=== PATIENT | male | born 1950 | race Caucasian/White ===

== ENCOUNTER 2016-07-22 07:30 | Inpatient (IN) | payer OTHER, MEDICARE ==
[~2016-07-22] VITALS: Ht 175.3 cm; Wt 85.6 kg
[2016-07-22] VITALS (11 sets, daily range): BP systolic 146–174; BP diastolic 67–94; PULSE 60–67; TEMP 36.3–36.8; O2SAT 97–100; Ht 175.3 cm; Wt 85.6 kg
[~2016-07-22 07:30] MED LIST: AMOX500C3 PO; LISI-729 PO; SOTA80TA55 PO; WARF5TAB7 PO
[2016-07-22] MEDS ORDERED: OXYMETAZOLINE HCL 0.05% NA SPR 15 ML BTL STA (07:44)
--- NOTE | 2016-07-22 07:58 | EMERGENCY ROOM VISIT NOTE ---
History First contact with patient: 07:41 Chief Complaint: NOSE BLEED (MINOR) Stated Complaint: NOSEBLEED History of Present Illness The patient is a 66 year old male who presents to the Emergency Room via private vehicle with complaints of "nosebleed ". Patient is accompanied by his . They state that the nosebleed began without trauma on or Thursday of this week. He does take Coumadin for a mechanical aortic valve since 1999. This past month the patient has not been eating much, and has been consuming large amounts of alcohol. Patient believes he is drinking 6-8 shots/glasses of whiskey per day but the thinks it's much higher. He was at the Coumadin clinic on Thursday and his INR was found to be 3.7. They were informed yesterday of this value and told to skip his dose today. believes he has been missing his medications lately, not on purpose but he is forgetful. He is to take medications for seizures, depression and other comorbidities. Patient denies any chest pain, shortness of breath, abdominal pain, lightheadedness, dizziness, suicidal ideations, homicidal ideations. states they're trying to get a psychiatric appointment for follow-up. Review of Systems A complete 10-point Review of Systems was discussed with the patient, with pertinent positives and negatives listed in the History of Present Illness. All remaining Review of Systems questions can be considered negative unless otherwise specified. 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 Social History Smoking Status: Former Smoker Alcohol Use: occasionally Social History: Pt. consumes large amounts of alcohol daily. Whisky 6-8 shots daily. Current/Historical Medications Scheduled Amoxicillin (Amoxil), 4 CAPSULES PO 1 HOUR BEFORE PROCED Levetiracetam (Keppra), 500 MG PO BID Losartan Potassium (Cozaar), 25 MG PO DAILY Sertraline (Zoloft), 25 MG PO DAILY Sotalol Hcl (Betapace), 40 MG PO DAILY Tiotropium [place] (Spiriva Handihaler), 1 CAP PO DAILY Warfarin Sod (Jantoven), 2.5 MG PO DAILY Allergies Coded Allergies: JENNIFER Inhibitors (Verified Adverse Reaction, Mild, cough, 07/22/16) Physical Exam Vital Signs Date Time Temp Pulse Resp B/P Pulse Ox O2 Delivery O2 Flow Rate FiO2 07/22/16 10:09 62 15 132/88 98 Room Air 07/22/16 09:40 59 19 156/88 97 Room Air 07/22/16 09:29 61 15 92/67 96 Room Air 07/22/16 09:21 53 07/22/16 08:30 70 18 170/102 98 Room Air 07/22/16 07:35 36.4 68 20 161/96 98 Room Air Physical Exam VITAL SIGNS - Vital signs and nursing notes were reviewed. Patient is afebrile , he is hypertensive at 161/96, he is not tachycardic and saturating well on room air 98%. GENERAL -66-year-old male appearing his stated age who is in no acute distress. Communicates well with provider and answers questions appropriately. SKIN - Without rashes. No petechial rashes. HEAD - NC/AT. EYES - PERRL with EOMI bilaterally. Sclera anicteric. Palpebral conjunctiva pink and moist with no injection noted. EARS - No deformities of external structures noted on gross examination bilaterally. NOSE - Midline and without cyanosis. There is a steady stream of blood from the left naris. There is also blood in the posterior pharynx. Septum midline without deviation or septal hematoma noted. MOUTH/OROPHARYNX - Without perioral cyanosis. Buccal mucosa pink and moist and without leukoplakia. Tongue midline with equal elevation of palate bilaterally. No tonsillar hypertrophy, erythema, or exudates noted. Fair dentition noted. NECK - Neck with FROM. LUNGS - Chest wall symmetric without accessory muscle use, intercostals retractions, or central cyanosis. Normal vesicular breath sounds CTA B/L. No wheezes, rales, or rhonchi appreciated. CARDIAC - RRR with S1/S2. No murmur, rubs, or gallops appreciated. EXTREMITIES - No clubbing or peripheral cyanosis. No pretibial edema present. +5 /5 strength noted in UE/LE bilaterally. NEUROLOGIC - Cranial nerves II through XII grossly intact. Sensory intact to light touch throughout. PSYCH - A&Ox3 and cooperates fully with examiner. Pt is very pleasant and interacts well with examiner. Medical Decision & Procedures Laboratory Results 07/22/16 08:15 Red Blood Count 5.21, Mean Corpuscular Volume 84.6, Mean Corpuscular Hemoglobin 29.8, Mean Corpuscular Hemoglobin Concent 35.1, Mean Platelet Volume 10.3, Neutrophils (%) (Auto) 73.7, Lymphocytes (%) (Auto) 15.8, Monocytes (%) (Auto) 5.3, Eosinophils (%) (Auto) 3.8, Basophils (%) (Auto) 0.7, Neutrophils # (Auto) 5.46, Lymphocytes # (Auto) 1.17, Monocytes # (Auto) 0.39, Eosinophils # (Auto) 0.28, Basophils # (Auto) 0.05 07/22/16 08:15 Test 07/22/16 08:15 07/22/16 09:44 White Blood Count 7.40 K/uL (4.8-10.8) Red Blood Count 5.21 M/uL (4.7-6.1) Hemoglobin 15.5 g/dL (14.0-18.0) Hematocrit 44.1 % (42-52) Mean Corpuscular Volume 84.6 fL (80-100) Mean Corpuscular Hemoglobin 29.8 pg (25-34) Mean Corpuscular Hemoglobin Concent 35.1 g/dl (32-36) Platelet Count 208 K/uL (130-400) Mean Platelet Volume 10.3 fL (7.4-10.4) Neutrophils (%) (Auto) 73.7 % Lymphocytes (%) (Auto) 15.8 % Monocytes (%) (Auto) 5.3 % Eosinophils (%) (Auto) 3.8 % Basophils (%) (Auto) 0.7 % Neutrophils # (Auto) 5.46 K/uL (1.4-6.5) Lymphocytes # (Auto) 1.17 K/uL (1.2-3.4) Monocytes # (Auto) 0.39 K/uL (0.11-0.59) Eosinophils # (Auto) 0.28 K/uL (0-0.5) Basophils # (Auto) 0.05 K/uL (0-0.2) RDW Standard Deviation 40.8 fL (36.4-46.3) RDW Coefficient of Variation 13.4 % (11.5-14.5) Immature Granulocyte % (Auto) 0.7 % Immature Granulocyte # (Auto) 0.05 K/uL (0.00-0.02) Activated Partial Thromboplast Time 44.6 SECONDS (21.0-31.0) Partial Thromboplastin Ratio 1.7 Est Creatinine Clear Calc Drug Dose 84.3 ml/min Estimated GFR () 99.4 Estimated GFR (Non- 85.8 BUN/Creatinine Ratio 17.4 (10-20) Calcium Level 8.4 mg/dl (8.5-10.1) Total Bilirubin 0.4 mg/dl (0.2-1) Aspartate Amino Transf (AST/SGOT) 22 U/L (15-37) Alanine Aminotransferase (ALT/SGPT) 22 U/L (12-78) Alkaline Phosphatase 131 U/L (45-117) Total Protein 7.8 gm/dl (6.4-8.2) Albumin 3.7 gm/dl (3.4-5.0) Globulin 4.1 gm/dl (2.5-4.0) Albumin/Globulin Ratio 0.9 (0.9-2) Hepatitis C Antibody Screen NEG (NEG) Bedside Hemoglobin 14.3 g/dl (14.0-18.0) Bedside Hematocrit 42 % (42-52) Bedside Sodium 142 mEq/L (135-144) Bedside Potassium 4.4 mEq/L (3.3-5.0) Bedside Chloride 106 mEq/L (101-112) Bedside Total CO2 23 mEq/l (24-31) Anion Gap 19.0 mmol/L (16-25) Bedside Blood Urea Nitrogen 19 mg/dl (7-18) Bedside Creatinine 1.0 mg/dl (0.6-1.3) Bedside Glucose (other) 126 mg/dl (70-99) Bedside Ionized Calcium (Sugar) 1.10 mmol/l (1.12-1.32) Medications Administered Medications (Trade) Dose Ordered Sig/Mike Route Start Time Stop Time Status Last Admin Dose Admin Ondansetron HCl 4 mg 4 mg NOW STAT IV 07/22/16 09:15 07/22/16 09:17 DC 07/22/16 09:39 4 MG Sodium Chloride 250 ml @ 999 mls/hr Q16M STAT IV 07/22/16 09:15 07/22/16 09:30 DC 07/22/16 09:21 999 MLS/HR Sodium Chloride 1,000 ml @ 125 mls/hr Q8H STAT IV 07/22/16 09:15 07/22/16 13:05 DC 07/22/16 09:15 125 MLS/HR Phytonadione/ Sodium Chloride (Aqua-Mephyton Inj/Nss 50ml) 50.2 ml @ 100 mls/hr TODAY@0945 IV 07/22/16 09:45 07/22/16 10:16 DC 07/22/16 10:08 100 MLS/HR Acetaminophen (Tylenol Tab) 650 mg Q4H PRN PO 07/22/16 11:15 08/21/16 11:14 07/22/16 16:12 650 MG Medical Decision Patient was seen and evaluated as above. After obtaining a thorough history and physical examination the above workup was obtained. Upon my entrance into the exam room the patient was sitting with his head between his legs and blood steadily dripping on the floor. There was a nose clamp on. I then emergently obtained oxymetazoline, sprayed into both nostrils had the patient sit in neutral position with pressure on the nose. This provided minimal relief. I then spoke with my attending and we both evaluated the patient, at the patient thoroughly blow his nose and then used hemaderm to attempt hemostasis. This provided minimal relief. My attending then packed the nose with a 5.5 cm Rhino for the suspected anterior nosebleed. This did provide some relief however given the patient's supratherapeutic INR 4.1 I do believe that he is at risk for continued bleeding. The case was discussed with my attending and Dr. Singer, the anticoagulation specialist and it was decided to provide the patient with 2 mg of vitamin K IV for reversal of his supratherapeutic INR. Our order set did not have a 2 mg IV dose therefore I called pharmacy and instructed to me to use the pediatric dose and change it to 2 mg IV. This was given to the patient. Patient was stable here in the emergency department. I- STAT was then obtained to recheck hemoglobin. He was stable. No leukocytosis or anemia. Patient was supratherapeutic up with an INR 4.1. Chloride was high at 109, calcium was slightly low at 8.4. Alkaline phosphatase was high at 131. Globulin was also high at 4.1. I do believe the patient would benefit from inpatient admission secondary to being supratherapeutic on warfarin and nosebleed. Case was discussed with hospitalist who agreed to admit the patient. Please refer to further evaluation and management as doctor in about hospital staff regarding the patient's stay. In the evaluation and treatment of this patient following differential diagnoses were entertained: Anterior nosebleed, posterior nosebleed, supratherapeutic INR, trauma, hemorrhage, anemia, among others. Departure Information Dispostion Admitted as an inpatient Condition FAIR Referrals Kyle Corbett M.D. (PCP) Patient Instructions My [facility]
[2016-07-22] MEDS ORDERED: ACETAMINOPHEN 325 MG TAB PO ONE ×2 (08:00→20:00)
[2016-07-22 08:32] LABS: BASO % 0.7 %; BASO ABS # 0.05 K/uL (0-0.2); COMPLETE YES; EOS % 3.8 %; HEMATOCRIT 44.1 % (42-52); IG% 0.7 %; LYMPH % 15.8 %; LYMPH ABS # 1.17 K/uL (1.2-3.4); MEAN CELL VOLUME 84.6 fL (80-100); MEAN CORPUSCULAR HEMOGLOBIN 29.8 pg (25-34); MEAN CORPUSCULAR HGB CONC 35.1 g/dl (32-36); MEAN PLATELET VOLUME 10.3 fL (7.4-10.4); MONO % 5.3 %; NEUT % 73.7 %; PLATELET COUNT 208 K/uL (130-400); RED BLOOD COUNT 5.21 M/uL (4.7-6.1)
[2016-07-22 08:41] LABS: PARTIAL THROMBOPLASTIN RATIO 1.7; PROTHROMBIN TIME (PATIENT) 46.8 SECONDS (9.0-12.0)
[2016-07-22 08:44] LABS: INR 4.1 (0.9-1.1)
[2016-07-22] MEDS ORDERED: LEVE500T13 PO (08:53)
[2016-07-22] MEDS ORDERED: SERT25TA PO (08:53)
[2016-07-22] MEDS ORDERED: LOSA1TAB PO (08:53)
[2016-07-22 08:55] LABS: BUN/CREATININE RATIO 17.4 (10-20); CALCIUM 8.4 mg/dl (8.5-10.1); CREATININE 0.92 mg/dl (0.60-1.40)
[2016-07-22 08:58] LABS: ALB/GLOB RATIO 0.9 (0.9-2)
[2016-07-22] MEDS ORDERED: HydrALAZINE HCL 20 MG/ML VIAL IV. STA (09:15)
[2016-07-22] MEDS ORDERED: ONDANSETRON INJ 2 MG/ML 2 ML VIAL IV STA (09:15)
[2016-07-22] MEDS ORDERED: SODIUM CHLORIDE 0.9% 250ML 250 ML IV STA (09:15)
[2016-07-22] MEDS ORDERED: SODIUM CHLORIDE 0.9% 1000ML 1,000 ML IV STA (09:15)
[2016-07-22] MEDS ORDERED: PHYTONADIONE PED 1 MG/0.5ML AMP/SYRG IV STA (09:24)
[2016-07-22] MEDS ORDERED: PHYTONADIONE INJ 2 MG in SODIUM CHLORIDE 0.9% 50ML 50 ML IV SCH (09:45)
[2016-07-22 09:55] LABS: ISTAT HEMOGLOBIN 14.3 g/dl (14.0-18.0); ISTAT IONIZED CALCIUM 1.1 mmol/l (1.12-1.32)
[2016-07-22] MEDS ORDERED: NITROGLYCERIN 0.4 MG SL PER TAB CHARGE SL PRN (11:15)
[2016-07-22] MEDS ORDERED: ONDANSETRON INJ 2 MG/ML 2 ML VIAL IV PRN (11:15)
[2016-07-22] MEDS ORDERED: ACETAMINOPHEN 325 MG TAB ONE (11:52)
[2016-07-22] MEDS ORDERED: SPRIN PO (11:55)
[2016-07-22] MEDS ORDERED: LORAZEPAM 1 MG TAB PO PRN (12:45)
[2016-07-22] MEDS ORDERED: SODIUM CHLORIDE 0.9% 1000ML 1,000 ML IV SCH (12:45)
[2016-07-22] MEDS ORDERED: GABAPENTIN 600 MG TAB PO ONE (14:00)
[2016-07-22] MEDS ORDERED: MULTI-VITAMIN INFUSION INJ 10 ML, THIAMINE HCL INJ 100 MG, FoLIC ACID INJ 1 MG in SODIU... IV ONE (14:00)
--- NOTE | 2016-07-22 14:02 | History and Physical ---
History & Physical Date & Time of Service: Jul 22, 2016 at 12:44 Chief Complaint: Epistaxis Primary Care Physician: Kyle Corbett M.D. History of Present Illness Source: patient, family, spouse This is a 66 y/o male with PMHx of Aflutter on Coumadin, Depression/Anxiety, HTN and other problems as outlined below who presents to the ED c/o intermittent nose bleed x 4 days. Pt reports that 4 days ago he developed a nosebleed. When it started it was not "streaming" but more occ drops of blood from the L nare with blood in sputum. Early this morning bleeding got much worse and patient reports that blood was "flowing" from his nose into the kitchen sink. He denies any injury to the nose. He has never had a nose bleed like this before. Pt has a history of Aflutter on Coumadin. Per at bedside , patient has also been drinking more recently. reports he drinks 1.5 L whiskey in 1 week. She feels that he is manic and went into great detail about patient past psych/neuro history. In short, patient sees neurology (Dr. Love) and takes Keppra for complex partial seizures dx in 2012. states that every 3 months patient will have a day where he is "out of it" and has a metallic taste in his mouth. After these episodes, has noticed that patient will go into a euphoric/manic state for the next three months before the cycle repeats itself. Pt has a history of psychotic episodes as well and has received inpatient treatment at the [facility] during those times. Pt has does not see a psychiatrist regularly and he has never been formally diagnosed with Bipolar disorder. has been trying to get patient in to see a psychiatrist however all the places she has called have told her they aren't accepting new patients at this time. Pt denies fever/chills, diaphoresis, chest pain, syncope , palpitations, SOB, wheezing, abd pain, N/V, bowel or bladder issues, LE edema ,calf pain, lightheadedness/dizziness. In the ED, vitals are stable. HgB 15.5. INR 4.1. Pt received Vit K and IVF and rhinorocket was placed in the L nare. Pt is stable and will be admitted for further evaluation and treatment. Past Medical/Surgical History Medical Problems: (1) Anxiety Status: Chronic (2) Atrial flutter Status: Chronic (3) Depression Status: Chronic (4) History of aortic dissection Status: Resolved (5) HTN (hypertension) Status: Chronic Surgical Problems: (1) History of cholecystectomy Status: Resolved (2) History of inguinal hernia repair Status: Resolved (3) S/P AVR Permanent Comment: 2000 Status: Resolved Social History Smoking Status: Former Smoker Alcohol Use: heavy (1.5 L whiskey in 1 week) Drug Use: marijuana Marital Status: Housing status: lives alone Occupational Status: disabled Immunizations History of Influenza Vaccine: Yes History of Tetanus Vaccine?: Yes History of Pneumococcal: Yes History of Hepatitis B Vaccine: No Multi-Drug Resistant Organisms History of MDRO: No Allergies Coded Allergies: Randy Inhibitors (Verified Adverse Reaction, Unknown, cough, 07/22/16) Home Medications Scheduled Amoxicillin (Amoxil), 4 CAPSULES PO 1 HOUR BEFORE PROCED Levetiracetam (Keppra), 500 MG PO BID Losartan Potassium (Cozaar), 25 MG PO DAILY Sertraline (Zoloft), 25 MG PO DAILY Sotalol Hcl (Betapace), 40 MG PO DAILY Tiotropium [place] (Spiriva Handihaler), 1 CAP PO DAILY Warfarin Sod (Jantoven), 2.5 MG PO DAILY Review of Systems Constitutional: + fatigue, No chills, No fever, No sweats, No weakness Eyes: No worsening of vision ENT: + unusual epistaxis Respiratory: No cough, No shortness of breath Cardiovascular: No chest pain, No claudication, No edema, No palpitations Abdomen: No constipation, No diarrhea, No nausea, No pain, No vomiting Musculoskeletal: No calf pain, No swelling Genitourinary - Male: No dysuria Neurologic: No weakness Psychiatric: No depression symptoms Endocrine: No fatigue Hematologic / Lymphatic: + abnormal bleeding/bruising Integumentary: No new/changing skin lesions Physical Exam Vital Signs Date Time Temp Pulse Resp B/P Pulse Ox O2 Delivery O2 Flow Rate FiO2 07/22/16 12:20 99 Room Air 07/22/16 11:29 65 16 156/92 99 Room Air 07/22/16 10:09 62 15 132/88 98 Room Air 07/22/16 09:40 59 19 156/88 97 Room Air 07/22/16 09:29 61 15 92/67 96 Room Air 07/22/16 09:21 53 07/22/16 08:30 70 18 170/102 98 Room Air 07/22/16 07:35 36.4 68 20 161/96 98 Room Air General Appearance: WD/WN, no apparent distress, + pertinent finding (Pt is sitting in bed with at bedside ) Head: normocephalic, atraumatic Eyes: normal inspection ENT: hearing grossly normal, + pertinent finding (rhinorocket in place in L nare ) Neck: supple Respiratory/Chest: chest non-tender, lungs clear, normal breath sounds, no respiratory distress Cardiovascular: regular rate, rhythm, no edema Abdomen/GI: normal bowel sounds, non tender, soft Back: normal inspection Extremities/Musculoskelatal: normal inspection, no calf tenderness, no pedal edema Neurologic/Psych: alert, normal mood/affect, oriented x 3 Skin: normal color, warm/dry Diagnostics Laboratory Results Results Past 24 Hours Test 07/22/16 08:15 07/22/16 09:44 07/22/16 11:53 07/22/16 12:33 Range/Units White Blood Count 7.40 4.8-10.8 K/uL Red Blood Count 5.21 4.7-6.1 M/uL Hemoglobin 15.5 14.0-18.0 g/dL Hematocrit 44.1 42-52 % Mean Corpuscular Volume 84.6 80-100 fL Mean Corpuscular Hemoglobin 29.8 25-34 pg Mean Corpuscular Hemoglobin Concent 35.1 32-36 g/dl Platelet Count 208 130-400 K/uL Mean Platelet Volume 10.3 7.4-10.4 fL Neutrophils (%) (Auto) 73.7 % Lymphocytes (%) (Auto) 15.8 % Monocytes (%) (Auto) 5.3 % Eosinophils (%) (Auto) 3.8 % Basophils (%) (Auto) 0.7 % Neutrophils # (Auto) 5.46 1.4-6.5 K/uL Lymphocytes # (Auto) 1.17 1.2-3.4 K/uL Monocytes # (Auto) 0.39 0.11-0.59 K/uL Eosinophils # (Auto) 0.28 0-0.5 K/uL Basophils # (Auto) 0.05 0-0.2 K/uL RDW Standard Deviation 40.8 36.4-46.3 fL RDW Coefficient of Variation 13.4 11.5-14.5 % Immature Granulocyte % (Auto) 0.7 % Immature Granulocyte # (Auto) 0.05 0.00-0.02 K/uL Prothrombin Time 46.8 9.0-12.0 SECONDS Prothromb Time International Ratio 4.1 0.9-1.1 Activated Partial Thromboplast Time 44.6 21.0-31.0 SECONDS Partial Thromboplastin Ratio 1.7 Sodium Level 140 136-145 mmol/L Potassium Level 4.0 3.5-5.1 mmol/L Chloride Level 109 98-107 mmol/L Carbon Dioxide Level 20 21-32 mmol/L Anion Gap 11.0 19.0 16-25 mmol/L Blood Urea Nitrogen 16 7-18 mg/dl Creatinine 0.92 0.60-1.40 mg/dl Est Creatinine Clear Calc Drug Dose 84.3 ml/min Estimated GFR () 99.4 Estimated GFR (Non- 85.8 BUN/Creatinine Ratio 17.4 10-20 Random Glucose 92 70-99 mg/dl Calcium Level 8.4 8.5-10.1 mg/dl Total Bilirubin 0.4 0.2-1 mg/dl Aspartate Amino Transf (AST/SGOT) 22 15-37 U/L Alanine Aminotransferase (ALT/SGPT) 22 12-78 U/L Alkaline Phosphatase 131 45-117 U/L Total Protein 7.8 6.4-8.2 gm/dl Albumin 3.7 3.4-5.0 gm/dl Globulin 4.1 2.5-4.0 gm/dl Albumin/Globulin Ratio 0.9 0.9-2 Bedside Hemoglobin 14.3 14.0-18.0 g/dl Bedside Hematocrit 42 42-52 % Bedside Sodium 142 135-144 mEq/L Bedside Potassium 4.4 3.3-5.0 mEq/L Bedside Chloride 106 101-112 mEq/L Bedside Total CO2 23 24-31 mEq/l Bedside Blood Urea Nitrogen 19 7-18 mg/dl Bedside Creatinine 1.0 0.6-1.3 mg/dl Bedside Glucose (other) 126 70-99 mg/dl Bedside Ionized Calcium (Sugar) 1.10 1.12-1.32 mmol/l Impression Assessment and Plan EPISTAXIS pt presented with worsening nose bleed; h/o aflutter on Coumadin -admit to telemetry -HgB 15.5; cont to monitor -Vit K given in ED -hold Coumadin and monitor INR -rhinorocket in place (leave for 5 days per ENT) -consult ENT, Dr. Pineda-spoke with on phone, appreciate input -pt is hemodynamically stable -monitor ALCOHOL ABUSE -watch for withdrawal sxs -start gabapentin protocol -benzos PRN -consult psych ATRIAL FLUTTER -hold Coumadin -cont sotalol -obtain EKG H/O AVR -holding Coumadin for now -monitor INR DEPRESSION/ANXIETY -see HPI for psych history -cont Zoloft and Ativan PRN -consult psych -monitor HTN -stable -documented intolerance to ACEI (2* RANDY cough) -cont losartan and sotalol -monitor DVT PROPHYLAXIS -SCDs only in setting of epistaxis DISPO Pt seen in collaboration with Dr. Dawson. Please see her addendum for further details. Thanks! ATTENDING ADDENDUM: I have seen and examined the patient and have discussed the plan with the provider above. I agree with the assessment and plan as stated. Mr. White is an alcoholic male on coumadin since 1999 for a mechanical aortic valve placed along with a conduit for a Type I aortic dissection. He developed epistaxis 6 days ago and was found to have a supratherapeutic INR. He was advised to hold his coumadin for one day and then restart it, which he did. He presented today with an INR 4.1 after the flowing bleeding described above which filled his sick with blood. After packing in the ER he did vomit a large quantity of blood but this has resolved and he is currently without nausea or bleeding. Of note, the ER physician used a Rapid Rhino to achieve hemostasis, and filled the port with 10cc of air. Afrin and 2mg of Vit K were also given in the ER today along with 2L IVF; the patient has been and remains hemodynamically stable. I spoke with Dr. Zamarripa (ENT) by phone and apprised him of the case. We discussed the plan in detail which includes ENT following peripherally for the next 4-5 days prior to removal. ENT will not see him at this time as adequate hemostasis has been achieved, however, they are aware of the case and will see him if he rebleeds with a low threshold for transfer to a tertiary care center. The plan in the next 24 hours involves watching him off coumadin to ensure rebleeding does not occur with consideration in the next 1-2 days of restarting anticoagulation for protection in setting of mechanical valve. I will also add antibiotic prophylaxis while the packing is in place. In the background to this issue, this patient has a h/o ETOH abuse and reports recently drinking very heavily. He is currently not experiencing withdrawal symptoms or showing signs of withdrawal, however, was placed on the gabapentin protocol. He and his were apprised of the withdrawal symptoms and when to notify nursing staff. They both verbalized understanding with intent to comply. (see below) Advanced Directives Existing Living Will: No Existing Power of Club Car Attendant: No VTE Prophylaxis VTE Risk Assessment Done? Y/N: Yes Risk Level: High Note (add'l comments): On exam VSS and he is afebrile. He has normal mentation and nasal packing in place on the L nare. No sinus TTP is appreciated and pharynx is clear. Abdomen is soft and non-tender, lungs are CTAB, and S1/2 were heart on auscultation of the heart along with the valve clicking. No edema was appreciated and the extremities were WWP. We will monitor him closely on telemetry for signs of rebleeding today per plan above, and will repeat H/H this afternoon. Alexandria Dawson DO (Hospitalist)
[2016-07-22] MEDS ORDERED: LOSARTAN POTASSIUM 50 MG TAB PO ONE (14:30)
--- NOTE | 2016-07-22 15:18 | DIAGNOSTIC IMAGING REPORT ---
CHEST 2 VIEWS ROUTINE CLINICAL HISTORY: Epistaxis COMPARISON STUDY: 05/09/2012 FINDINGS: The cardiac and mediastinal contours remain stable. There is no failure. There is no focal pulmonary consolidation. There is stable blunting of the right lateral costophrenic angle.[ There are postsurgical changes of a midline sternotomy. IMPRESSION: Stable blunting of the right lateral costophrenic angle, consistent with pleural fluid/scarring. No acute findings. Electronically signed by: Bola Escobedo M.D. 07/22/2016 3:16 PM Dictated Date/Time: 07/22/2016 3:15 PM
[2016-07-22] MEDS: ACETAMINOPHEN 325 MG TAB PO PRN (16:12)
[2016-07-22] MEDS: CEFAZOLIN IV 500 MG in DEXTROSE 5% 50ML 50 ML IV SCH (16:12)
[2016-07-22 16:21] LABS: HEMATOCRIT 38.5 % (42-52)
[2016-07-22 16:28] LABS: INR 2.3 (0.9-1.1)
[2016-07-22] MEDS ORDERED: AMLODIPINE BESYLATE 5 MG TAB PO ONE (18:45)
--- NOTE | 2016-07-22 19:02 | Psychiatric Consultation ---
Consultation Identifying Data Mr. White is a 66 yo male who was seen with his at bedside. The couple resides in [place]. Consult is for ETOH use and mood issues on Zoloft. Chief Complaint "I've had some ups and downs, recently a reawakening of my music". History of Present Illness and Mrs. White report onset of mood disorder following onset of his seizure disorder. They state he was hospitalized in [place], not the [facility] as listed on H&P for a manic episode in 2012 that coincided with start of Lamictal. At that time he became you euphoric and took off in his car and was missing from work for a few days. Police found him in a "seedy" motel and apparently he made some statements that they believed to indicate suicidal ideation and he was taken to ER. He has not had consistent psych f/u since his inpatient stay which they attributed at the time to encephalopathy/delirium due to his seizure medication and UTI. He has essentially had minimal mood issues over the past 4 years. His seizure aura includes a metallic taste in his mouth, occasionally following an episode he will have elevated or euphoric mood that will last up to a few days. He started to have issues this past Spring where he was self medicating with an old Wellbutrin prescription. Apparently he did have some personality change after his aortic dissection and was on Wellbutrin for a brief period of time for irritability. The couple is friends with behavioral medicine Dr. Cabrera and he was directed to stop Wellbutrin immediately due to seizure risk. Ultimately he was started on Zoloft in October by PCP and neurologist. 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 His feels he is overly confident about his abilities. In more recent weeks he has exhibited more mood swings and sporadic shifts in his ETOH use. He will drink up to 1-1.5 L of whiskey a week and will stay up all night and then sleep during the day. He denies that ETOH use is a problem as " I can go dry whenever I want" without symptoms of withdrawal. He later admitted that he drinks in an attempt to quiet his mind from racing thoughts. Apparently about 10 days ago he seemed paranoid, nonspecific distrust of their neighbor and attempted to load up the car to leave. His talked him out of it and he was ultimately apologetic. He gets sad about his strained relationship with his 30 yo son from a previous relationship as he won't return his calls; it has been several years with no contact. He has made calls to his sister yelling. He has not made any statements about hurting himself and has never been aggressive toward his . She has attempted to get care for him on an outpatient basis and dropped off records to [facility] last week in preparation for an intake appt. They attribute much of his decline to the loss of his [id number] this past summer. Past Psychiatric History Current OP Treatment: no current treatment Prior Psych Hospitalizations: other ([facility] 2012) no prior suicide attempts no noted trials of Wellbutrin and Zoloft Past Medical/Surgical History History of Obesity: No History of HTN: Yes History of Diabetes: No History of Heart Disease: Yes (aortic dissection) History of Dyslipidemia: No Problem List: (1) History of aortic dissection (2) HTN (hypertension) (3) Epistaxis (4) History of cholecystectomy (5) History of inguinal hernia repair Allergies Allergies: Coded Allergies: JENNIFER Inhibitors (Verified Adverse Reaction, Mild, cough, 07/22/16) Home Medications Scheduled Amoxicillin (Amoxil), 4 CAPSULES PO 1 HOUR BEFORE PROCED Levetiracetam (Keppra), 500 MG PO BID Losartan Potassium (Cozaar), 25 MG PO DAILY Sertraline (Zoloft), 25 MG PO DAILY Sotalol Hcl (Betapace), 40 MG PO DAILY Tiotropium [place] (Spiriva Handihaler), 1 CAP PO DAILY Warfarin Sod (Jantoven), 2.5 MG PO DAILY Family History History of Obesity: Yes History of HTN: No History of Diabetes: Yes History of Heart Disease: Yes History of Dyslipidemia: Yes father had history of alcoholism Alcohol Use Alcohol Use In Past 12 Months: Yes as above Substance History admitted previously to occasional MJ use Personal History Parental Status: Development: described mother as emotionally cold 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 Relationship History: (been with current 23 years) Children: 1 son, no contact Legal History: none Abuse History: none Review of Systems Psych: denies symptoms other than stated above Constitutional: sleep issues Cardiovascular: denied GI: denied Neurologic: denied nose packed for epistaxis Examination Vital Signs Vital Signs Past 12 Hours Date Time Temp Pulse Resp B/P Pulse Ox O2 Delivery O2 Flow Rate FiO2 07/22/16 15:59 97 Room Air 07/22/16 15:31 36.3 67 18 173/91 97 Room Air 07/22/16 12:20 99 Room Air 07/22/16 11:29 65 16 156/92 99 Room Air 07/22/16 10:09 62 15 132/88 98 Room Air 07/22/16 09:40 59 19 156/88 97 Room Air 07/22/16 09:29 61 15 92/67 96 Room Air 07/22/16 09:21 53 07/22/16 08:30 70 18 170/102 98 Room Air 07/22/16 07:35 36.4 68 20 161/96 98 Room Air Laboratory Results Last 24 Hours Test 07/22/16 08:15 07/22/16 09:44 07/22/16 14:02 07/22/16 16:14 White Blood Count 7.40 K/uL Red Blood Count 5.21 M/uL Hemoglobin 15.5 g/dL 13.4 g/dL Hematocrit 44.1 % 38.5 % Mean Corpuscular Volume 84.6 fL Mean Corpuscular Hemoglobin 29.8 pg Mean Corpuscular Hemoglobin Concent 35.1 g/dl Platelet Count 208 K/uL Mean Platelet Volume 10.3 fL Neutrophils (%) (Auto) 73.7 % Lymphocytes (%) (Auto) 15.8 % Monocytes (%) (Auto) 5.3 % Eosinophils (%) (Auto) 3.8 % Basophils (%) (Auto) 0.7 % Neutrophils # (Auto) 5.46 K/uL Lymphocytes # (Auto) 1.17 K/uL Monocytes # (Auto) 0.39 K/uL Eosinophils # (Auto) 0.28 K/uL Basophils # (Auto) 0.05 K/uL RDW Standard Deviation 40.8 fL RDW Coefficient of Variation 13.4 % Immature Granulocyte % (Auto) 0.7 % Immature Granulocyte # (Auto) 0.05 K/uL Prothrombin Time 46.8 SECONDS 26.0 SECONDS Prothromb Time International Ratio 4.1 2.3 Activated Partial Thromboplast Time 44.6 SECONDS Partial Thromboplastin Ratio 1.7 Sodium Level 140 mmol/L Potassium Level 4.0 mmol/L Chloride Level 109 mmol/L Carbon Dioxide Level 20 mmol/L Anion Gap 11.0 mmol/L 19.0 mmol/L Blood Urea Nitrogen 16 mg/dl Creatinine 0.92 mg/dl Est Creatinine Clear Calc Drug Dose 84.3 ml/min Estimated GFR () 99.4 Estimated GFR (Non- 85.8 BUN/Creatinine Ratio 17.4 Random Glucose 92 mg/dl Calcium Level 8.4 mg/dl Total Bilirubin 0.4 mg/dl Aspartate Amino Transf (AST/SGOT) 22 U/L Alanine Aminotransferase (ALT/SGPT) 22 U/L Alkaline Phosphatase 131 U/L Total Protein 7.8 gm/dl Albumin 3.7 gm/dl Globulin 4.1 gm/dl Albumin/Globulin Ratio 0.9 Hepatitis C Antibody Screen NEG Bedside Hemoglobin 14.3 g/dl Bedside Hematocrit 42 % Bedside Sodium 142 mEq/L Bedside Potassium 4.4 mEq/L Bedside Chloride 106 mEq/L Bedside Total CO2 23 mEq/l Bedside Blood Urea Nitrogen 19 mg/dl Bedside Creatinine 1.0 mg/dl Bedside Glucose (other) 126 mg/dl Bedside Ionized Calcium (Sugar) 1.10 mmol/l Mental Examination During interview pt is: alert and oriented Appearance: appropriately groomed Eye contact is: good Motor behavior is: no abnormal motor movements Speech: normal in rate, rhythm & volume Affect: mood congruent Mood is: other ("fine here") Thought process: linear, logical Thought content: reality based without delusions Suicidal thought are: denied Homicidal thoughts are: denied Hallucinations: denies auditory, denies visual Cognition: memory grossly intact, language grossly intact Intelligence estimated to be: average Insight: limited Judgement: limited Impression / Recommendations Impression Mr. White is a 66 yo male with history of manic behaviors and cyclical mood changes coinciding with onset of seizure disorder. He has recently experienced increased frequency of cycling from elevated mood to irritability bordering on paranoid with escalation in ETOH use on combo of Zoloft and Keppra. Risk Factors Assessment Access to guns: No Recommendations (1) Mood disorder due to a general medical condition there is no family history of mood disorder and he denies psychiatric history prior to onset of seizure disorder couple is agreeable to discontinuing Zoloft due to recent hypomania there is no acute indication for inpatient psychiatric hospitalization at this time liaison to have patient sign GEO for [facility] and confirm appointment for psychiatry his symptoms clearly impact his relationship and he notes upset over strained relationship with son so would also benefit from therapy, also to address his substance use risks/benefits/alternatives reviewed re: Seroquel for mood stabilization. Discussion included but was not limited to need for metabolic monitoring and risks of TD. Both agreed to trial of low dose Seroquel, reviewed that titration for bipolar depression is often to target dose of 200-300 mg but likely lower given patient's age he should abstain from ETOH, currently on ETOH withdawal protocol reviewed with that I have concerns about his driving but also defer to neurology re: any reporting to [place] dept of transportation. She states that he rarely drives anymore and she will secure keys
[2016-07-22] MEDS: GABAPENTIN 600 MG TAB PO SCH (20:09)
[2016-07-22] MEDS: SOTALOL HCL 80 MG TAB PO SCH (20:49)
[2016-07-22] MEDS: LEVETIRACETAM 500 MG TAB PO SCH (20:49)
[2016-07-22] MEDS: QUETIAPINE FUMARATE 25 MG TAB PO SCH (21:00)
[2016-07-22 21:59] LABS: BENZODIAZEPINE, URINE NEG (NEG); COCAINE,URINE NEG (NEG); PHENCYCLIDINE, URINE NEG (NEG)
[2016-07-23] VITALS (11 sets, daily range): BP systolic 142–183; BP diastolic 70–93; PULSE 58–83; TEMP 36.4–36.6; O2SAT 96–100
--- NOTE | 2016-07-23 03:03 | CARDIOLOGY CONSULTATION ---
DATE OF CONSULTATION: 07/22/2016 CONSULTATION REQUESTED BY: Dr. Dawson. REASON FOR CONSULTATION: Anticoagulation management in the setting of mechanical AVR and significant epistaxis. HISTORY OF PRESENT ILLNESS: Mr. White is a very pleasant 66-year-old gentleman, who normally follows with Dr. Regis Scott of our cardiology practice. He presented to [facility] Emergency Department on 07/22/2016 with a complaint of significant epistaxis. The patient states he has having significant nosebleed off and on for the last several days. He does not remember exactly when it started, but he states, it can be rather severe at times, stating that he was actually seeing a sink almost filled with blood. He has also had an episode of vomiting, where he vomited out a significant amount of red blood and clots as well. He finally came into [facility] Emergency Department on 07/22/2016. His INR was found to be supratherapeutic at 4.1 and he was given vitamin K and he was admitted to telemetry. ENT was consulted and a tamponade device was placed. Currently, he states he is feeling okay. He has not had any more nausea or any more episodes of vomiting and specifically denies any chest pain, shortness of breath, palpitations, lightheadedness, dizziness, or syncope. He states, overall, he is feeling okay right now. PAST SURGICAL HISTORY: 1. Emergent St. Vadim mechanical aortic valve replacement along with ____ repair in the setting of type 1 aortic dissection in the year 1999. 2. Laparoscopic cholecystectomy. 3. Hernia repair. 4. Colonoscopy. MEDICAL ILLNESSES: 1. Congenital bicuspid aortic valve. 2. Type 1 aortic dissection with emergent repair. 3. History of seizure disorder. 4. Mixed restrictive and obstructive lung disease. 5. Paroxysmal atrial flutter. 6. History of basal cell carcinoma. FAMILY HISTORY: Noncontributory. SOCIAL HISTORY: He has a remote tobacco use history, a history of alcoholism as well; he states he has not drunk in a while. He does admit to occasional marijuana use. REVIEW OF SYSTEMS: As per HPI. All other review of systems reviewed and negative at this time. ALLERGIES: No known drug allergies. MEDICATIONS AN OUTPATIENT: 1. Lisinopril 5 mg daily. 2. Sotalol 40 mg b.i.d. 3. Coumadin 2.5 mg daily, except for Mondays when he takes 5 mg as directed by the Coumadin clinic. 4. Losartan 25 mg daily. 5. Keppra b.i.d. 6. Amoxicillin prior to dental procedures. 7. Spiriva daily. 8. Zoloft daily. PHYSICAL EXAMINATION: VITALS: Temperature 36.3, pulse 67, respiratory rate 12, and blood pressure 173/91. GENERAL: Awake, alert, and oriented x3 in no acute distress, slightly lethargic. A tamponade device in place in the left nostril. HEENT: Normocephalic and atraumatic. Pupils equal, round and react to light and accommodation. Extraocular muscles intact. Anicteric sclerae. Moist mucous membranes. NECK: No JVD and no bruit. CARDIOVASCULAR: Regular. Positive S4. Normal S1, metallic S2. Slight 2/6 mid to late systolic ejection murmur, greatest at the right sternal border, second intercostal space with radiation to the bilateral carotids. PULMONARY: Clear to auscultation bilaterally. No rales, rhonchi, or wheezing. ABDOMEN: Bowel sounds x4, soft. No rebound, guarding or tenderness. No organomegaly. EXTREMITIES: No clubbing, cyanosis or edema. +2 pedal pulses bilaterally. SKIN: Warm and dry. TEST RESULTS: LABORATORY STUDIES OF SIGNIFICANCE: Initial INR of 4.1, followup of 2.3. Initial hemoglobin 15.5, followup of 13.4. IMPRESSION: 1. Severe epistaxis. 2. Supertherapeutic INR contributing to #1. 3. Mechanical aortic valve with a conduit. 4. History of epilepsy. 5. Hypertension, currently uncontrolled. 6. Paroxysmal atrial flutter, on chronic sotalol therapy. RECOMMENDATIONS: It is my pleasure to see Mr. White in consultation today. The patient was counseled and given the fact that he is actively bleeding, obviously his Coumadin will be held and he has already been reversed partially with vitamin K. Given the fact that he still appears to be hemorrhaging, I would further attempt to reverse the Coumadin at this time with 1 unit of FFP, which will be given now. Obviously, his blood pressure elevation will not help stem the bleeding. So at this time, I will give him a 1 time dose of amlodipine 5 mg to help control the blood pressure. We will perform a resting echocardiogram in the a.m. and we will follow him closely. Obviously, his anticoagulation will have to be held for the foreseeable future; however, from a cardiac standpoint, with his valve, I would not prefer for him to be off anticoagulants longer than 3-4 days. We will follow him with serial echocardiograms, if necessary. He was counseled though that given the fact that his valve is in the aortic position, he does have an increased velocity across the valve and that does give us a little bit more ____ in terms of holding his anticoagulation. Further treatment of his epistaxis as per our ENT colleagues. Thank you very much for allowing me to participate in the care of your patient.
[2016-07-23] MEDS: ACETAMINOPHEN 325 MG TAB PO PRN ×3 (03:07→13:02)
[2016-07-23] MEDS: GABAPENTIN 600 MG TAB PO SCH ×3 (06:40→21:10)
[2016-07-23 06:45] LABS: MEAN CELL VOLUME 85.5 fL (80-100); MEAN CORPUSCULAR HEMOGLOBIN 29.5 pg (25-34); MEAN CORPUSCULAR HGB CONC 34.4 g/dl (32-36); MEAN PLATELET VOLUME 10.6 fL (7.4-10.4); PLATELET COUNT 147 K/uL (130-400); RED BLOOD COUNT 4.21 M/uL (4.7-6.1); WHITE BLOOD COUNT 9.14 K/uL (4.8-10.8)
[2016-07-23 06:51] LABS: INR 1.3 (0.9-1.1); PROTHROMBIN TIME (PATIENT) 14.2 SECONDS (9.0-12.0)
[2016-07-23 07:14] LABS: BUN/CREATININE RATIO 14.1 (10-20); CALCIUM 8.1 mg/dl (8.5-10.1); CREATININE 1.1 mg/dl (0.60-1.40)
[2016-07-23] MEDS: LEVETIRACETAM 500 MG TAB PO SCH ×2 (08:20→21:10)
[2016-07-23] MEDS: CEFAZOLIN IV 500 MG in DEXTROSE 5% 50ML 50 ML IV SCH ×4 (08:20→16:22)
[2016-07-23] MEDS: SOTALOL HCL 80 MG TAB PO SCH ×3 (08:21→21:49)
[2016-07-23] MEDS: LOSARTAN POTASSIUM 25 MG TAB PO SCH (08:21)
[2016-07-23] MEDS: TIOTROPIUM BROMIDE 5 PUFF/90 MCG INH INH SCH (08:23)
[2016-07-23] MEDS ORDERED: SERTRALINE HCL 50 MG TAB PO SCH (09:00)
[2016-07-23] MEDS ORDERED: SOTALOL HCL 80 MG TAB PO SCH (09:00)
[2016-07-23] MEDS ORDERED: THIAMINE HCL INJ 100 MG in SYRINGE 9 ML IV SCH (09:00)
--- NOTE | 2016-07-23 09:55 | Clinical Documentation Query ---
CLINICAL DOCUMENTATION QUERY Dr. ABURTO, In your clinical opinion is this patient being managed for: ( X ) Coumadin induced coagulopathy causing epistaxis ( ) Other explanation of clinical findings (Please Explain) ( ) Unable to determine (Please Define) ( ) Need to Discuss ( ) Not Agree The medical record reflects the following clinical findings, treatment, and risk factors. Clinical Indicators: 66 yo male presenting with epistaxis. INR 4.1, on chronic coumadin due to A fluttter. Treatment: IV vitamin K, rhinorocket for epistaxis, hold coumadin, monitor INR and H/H Risk Factors: chronic coumadin therapy Please clarify and document your clinical opinion in the progress notes and discharge summary. Terms such as "probable", "suspected", "likely", "questionable", "possible", or "still to be ruled out" are acceptable. IF IN AGREEMENT, YOU MUST DOCUMENT ABOVE DIAGNOSTIC STATEMENT IN DAILY PROGRESS NOTES AND DISCHARGE SUMMARY. This document is not part of the patient's record. Thank You, Ivory Millan RN [phone]
[2016-07-23] MEDS ORDERED: PERFLUTREN LIPID MICROSPHERE (DEFINITY) IV ONE (12:07)
--- NOTE | 2016-07-23 13:06 | ECHOCARDIOGRAM REPORT ---
*NOTICE TO RECEIVING [employer] This information is strictly Confidential and protected under [place] law. [place] law prohibits you from making any further disclosure of this information unless further disclosure is expressly permitted by the written consent of the person to whom it pertains or is authorized by law. A general authorization for the release of medical or other information is not sufficient for this purpose. Hospital accepts no responsibility if the information is made available to any other person, INCLUDING THE PATIENT. Interpretation Summary * Name: DAPHNEY BRITTON Study Date: 07/23/2016 10:42 AM BP: 144/74 mmHg * Patient Location: [facility]\S\N281\S\2 HR: 58 * : 1950 (M/d/yyyy) Gender: Male Height: 69 in * Age: 66 yrs Ethnicity: CA Weight: 187 lb * Ordering Physician: Foster Ortega DO * Performed By: Perla Shaw * * Reason For Study: VALVULAR HEART DISEASE * BSA: 2.0 m2 * -- Conclusions -- * Normal LV chamber size with mild concentric LVH. * Hyperdynamic LV systolic function, EF >70%. * No segmental left ventricular wall motion abnormalities are noted. * Grade II diastolci dysfunction. * There is no significant aortic regurgitation. 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 * The gradient is normal for this prosthetic aortic valve. * Trace mitral regurgitation. Procedure Details * A complete two-dimensional transthoracic echocardiogram was performed (2D, M-mode, Doppler and color flow Doppler). * A contrast injection of Definity was performed to improve assessment of LV function. * Contrast was injected into an intravenous site in the left arm. * One vial of Definity ultrasound contrast was diluted in normal saline to a total volume of 10 ml. A total of '3' ml of solution was administered during imaging. * Lot # [id number] of Definity utilized for procedure. * Expiration date 07/02. * The attending nurse who injected the contrast agent was LA FIERRO RN. Left Ventricle * The left ventricle is normal in size. * There is mild concentric left ventricular hypertrophy. * Ejection Fraction = >70 %. * Left ventricular systolic function is normal. * No segmental left ventricular wall motion abnormalities are noted. * The left ventricular wall motion is normal. Right Ventricle * The right ventricular cavity size is normal (basal dimension <4.2 cm in right ventricular apical 4-chamber view). * The right ventricular systolic function is normal as assessed by tricuspid annular plane systolic excursion (TAPSE) (normal >1.5 cm). Atria * The left atrial size is normal. * Right atrial size is normal. * No ASD detected; PFO is not assessed. Mitral Valve * The mitral valve anatomy is normal. * There is no mitral valve stenosis. * There is trace mitral regurgitation. Tricuspid Valve * The tricuspid valve is normal in structure and function. Aortic Valve * There is no significant aortic regurgitation. 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 * The gradient is normal for this prosthetic aortic valve. Pulmonic Valve * The pulmonary valve is not well seen, but the Doppler examination is normal without significant regurgitation or stenosis. Great Vessels * The aortic root is not well visualized. * Ascending aorta of normal dimension Pericardium/Pleural * There is no pericardial effusion. Left Ventricular Diastolic Function * Diastolic dysfunction, Grade II (pseudonormalization pattern). MMode 2D Measurements and Calculations IVSd 1.1 cm IVSs 1.7 cm LVIDd 4.5 cm LVIDs 2.6 cm LVPWd 0.84 cm LVPWs 2.2 cm IVS/LVPW 1.3 FS 43.0 % EDV(Teich) 91.2 ml ESV(Teich) 23.5 ml EF(Teich) 74.2 % EDV(cubed) 89.5 ml ESV(cubed) 16.6 ml EF(cubed) 81.4 % % IVS thick 51.2 % % LVPW thick 157.5 % LV mass(C)d 146.0 grams LV mass(C)dI 72.7 grams/m\S\2 LV mass(C)s 203.7 grams LV mass(C)sI 101.5 grams/m\S\2 CO(Teich) 3.9 l/min CI(Teich) 1.9 l/min/m\S\2 SV(Teich) 67.7 ml SI(Teich) 33.7 ml/m\S\2 CO(cubed) 4.2 l/min CI(cubed) 2.1 l/min/m\S\2 SV(cubed) 72.9 ml SI(cubed) 36.3 ml/m\S\2 EPSS 1.1 cm ACS 1.4 cm asc Aorta Diam 2.7 cm LVOT diam 1.5 cm LVOT area 1.8 cm\S\2 LVAd ap4 28.7 cm\S\2 LVLd ap4 7.8 cm EDV(MOD-sp4) 86.6 ml LVAs ap4 13.7 cm\S\2 LVLs ap4 6.3 cm ESV(MOD-sp4) 24.3 ml EF(MOD-sp4) 71.9 % LVAd ap2 22.2 cm\S\2 LVLd ap2 7.9 cm EDV(MOD-sp2) 50.3 ml LVAs ap2 10.7 cm\S\2 LVLs ap2 6.7 cm ESV(MOD-sp2) 13.9 ml EF(MOD-sp2) 72.4 % CO(MOD-sp4) 3.6 l/min CI(MOD-sp4) 1.8 l/min/m\S\2 SV(MOD-sp4) 62.3 ml SI(MOD-sp4) 31.0 ml/m\S\2 CO(MOD-sp2) 2.1 l/min CI(MOD-sp2) 1.0 l/min/m\S\2 SV(MOD-sp2) 36.4 ml SI(MOD-sp2) 18.1 ml/m\S\2 Doppler Measurements and Calculations MV E max xuan 120.8 cm/sec MV A max xuan 99.4 cm/sec MV E/A 1.2 MV V2 max 129.4 cm/sec MV max PG 6.7 mmHg MV V2 mean 64.0 cm/sec MV mean PG 2.0 mmHg MV V2 VTI 49.2 cm MVA(VTI) 0.87 cm\S\2 MV dec time 0.22 sec Ao V2 max 302.5 cm/sec Ao max PG 36.6 mmHg Ao max PG (full) 32.3 mmHg Ao V2 mean 176.1 cm/sec Ao mean PG 15.6 mmHg Ao mean PG (full) 13.6 mmHg Ao V2 VTI 60.8 cm MAGO(I,A) 0.70 cm\S\2 MAGO(I,D) 0.70 cm\S\2 MAGO(V,A) 0.62 cm\S\2 MAGO(V,D) 0.62 cm\S\2 LV V1 max PG 4.3 mmHg LV V1 mean PG 2.0 mmHg LV V1 max 103.8 cm/sec LV V1 mean 64.3 cm/sec LV V1 VTI 23.5 cm MR max xuan 541.0 cm/sec MR max PG 117.1 mmHg SV(LVOT) 42.6 ml SI(LVOT) 21.2 ml/m\S\2 PA V2 max 78.6 cm/sec PA max PG 2.5 mmHg
[2016-07-23] MEDS ORDERED: AMLODIPINE BESYLATE 5 MG TAB PO ONE (13:45)
[2016-07-23] MEDS ORDERED: NURSING VERBAL MED ORDER ONE (14:00)
--- NOTE | 2016-07-23 14:20 | Cardiology Follow-Up ---
Subjective Subjective Date of Service: Jul 23, 2016. Pt evaluation today including: conversation w/ patient, physical exam, chart review, lab review, review of studies, review of inpatient medication list Additional Details: Pt seen and examined, with complaint of significant headache. Otherwise, still some blood from nose but nothing significant. Denies cp, sob, palpitations, lightheadedness or dizziness. Tele reviewed: sinus rhythm without arrhythmia or significant ectopy. Review of Systems Respiratory: No cough, No dyspnea at rest, No dyspnea on exertion, No hemoptysis, No problem reported, No see HPI, No shortness of breath, No sputum, No wheezing Cardiac: No PND, No chest pain, No claudication, No edema, No orthopnea, No palpitations, No problem reported, No see HPI Objective Vital Signs Last Vital Signs Documentation Date Time Temp Pulse Resp B/P Pulse Ox O2 Delivery O2 Flow Rate FiO2 07/23/16 12:00 98 Room Air 07/23/16 07:44 36.4 58 20 153/88 Physical Exam: General Appearance: WD/WN, no apparent distress Eyes: bilateral eyes EOMI, bilateral eyes PERRL, bilateral eyes normal inspection ENT: + pertinent finding (tamponade device in left nostril) Neck: supple, no adenopathy, thyroid normal, no JVD Respiratory/Chest: chest non-tender, lungs clear, normal breath sounds, no respiratory distress, no accessory muscle use Cardiovascular: regular rate, rhythm, no edema, no JVD, + systolic murmur (3/6 mid to late. metallic S2), + gallop/S4 Abdomen: normal bowel sounds, non tender, soft, no organomegaly, no pulsatile mass Extremities: normal range of motion, non-tender, normal inspection, no pedal edema, no calf tenderness Neurologic/Psychiatric: lead ios developer II-XII nml as tested, no motor/sensory deficits, alert, normal mood/affect, oriented x 3 Skin: normal color, warm/dry, no rash Lymphatic: no adenopathy Assessment and Plan 1. severe epitaxis stable tamponade device in place INR reversed, 1.3 today hgb trending down for ENT eval I ordered 1mg of IV morphine for now for pain control 2. mechanical avr INR reversed echocardiogram performed, will use these velocities as our new baseline will follow very closely while anticoagulation held discussed with patient and would prefer to restart anticoagulation as soon as possible from a cardiac standpoint but obviously epitaxis must be controlled would prefer anticoagulation to be held for less than 72 hours from INR being subtherapeutic 3. paroxysmal atrial flutter has remained in sinus cont sotalol cont to monitor on tele
[2016-07-23] MEDS ORDERED: MoRPHine SULFATE 2 MG/ML CARP IV ONE (14:30)
[2016-07-23] MEDS: MoRPHine SULFATE 4 MG/ML 1 ML CARP\\VIAL IV PRN ×2 (15:51→19:51)
--- NOTE | 2016-07-23 17:43 | Progress Note ---
Medicine Progress Note Date & Time of Visit: Jul 23, 2016 at 17:33. Subjective Patient seen and examined. present at bedside. Received a dose of morphine for face pain associated with nasal packing; this helped to take the edge off. Coughing up some blood today. No bleeding from nares. Objective Last 8 Hrs Date Time Temp Pulse Resp B/P Pulse Ox O2 Delivery O2 Flow Rate FiO2 07/23/16 16:17 Room Air 07/23/16 16:02 36.6 62 18 168/92 98 Room Air 07/23/16 12:00 98 Room Air Physical Exam: General-awake; alert; NAD Eyes-EOMI; no scleral icterus ENT-left nares with packing and dried blood; no active bleeding noted Neck-no stridor; trachea midline Lungs-CTA bilaterally; no wheezes/crackles Heart-RRR; no m/r/g Abdomen-soft; NTND; nBS Extremities-no c/c/e; no deformity Neuro-no gross focal deficits Laboratory Results: Last 24 Hours Test 07/22/16 21:15 07/23/16 06:23 Urine Opiates Screen NEG Urine Methadone, Qualitative NEG Urine Barbiturates NEG Urine Phencyclidine (PCP) Level NEG Ur Amphetamine/Methamphetamine NEG MDMA (Ecstasy) Screen NEG Urine Benzodiazepines Screen NEG Urine Cocaine Metabolite NEG Urine Marijuana (THC) NEG White Blood Count 9.14 K/uL Red Blood Count 4.21 M/uL Hemoglobin 12.4 g/dL Hematocrit 36.0 % Mean Corpuscular Volume 85.5 fL Mean Corpuscular Hemoglobin 29.5 pg Mean Corpuscular Hemoglobin Concent 34.4 g/dl RDW Standard Deviation 42.2 fL RDW Coefficient of Variation 13.5 % Platelet Count 147 K/uL Mean Platelet Volume 10.6 fL Prothrombin Time 14.2 SECONDS Prothromb Time International Ratio 1.3 Sodium Level 140 mmol/L Potassium Level 4.0 mmol/L Chloride Level 107 mmol/L Carbon Dioxide Level 26 mmol/L Anion Gap 7.0 mmol/L Blood Urea Nitrogen 16 mg/dl Creatinine 1.10 mg/dl Est Creatinine Clear Calc Drug Dose 70.9 ml/min Estimated GFR () 80.1 Estimated GFR (Non- 69.1 BUN/Creatinine Ratio 14.1 Random Glucose 92 mg/dl Calcium Level 8.1 mg/dl Assessment & Plan Coumadin induced coagulopathy causing EPISTAXIS -received Vit K and FFP -Coumadin held; d/w Cardiology and ENT and plan to resume 07/24/16 -rhino rocket in place (possible removal on Thursday) -ENT consulted ALCOHOL ABUSE -watch for withdrawal sxs -continue gabapentin protocol -benzos PRN -consulted psych ATRIAL FLUTTER -Coumadin held; d/w Cardiology and ENT and plan to resume 07/24/16 -cont sotalol -Cardiology consulted H/O AVR -Coumadin held; d/w Cardiology and ENT and plan to resume 07/24/16 -Cardiology consulted DEPRESSION/ANXIETY -consulted psych -Zoloft discontinued -Seroquel started for mood stabilization HTN -cont losartan -amlodipine started DVT PROPHYLAXIS -SCDs only in setting of epistaxis Consultants: ENT Cardiology Psychiatry Procedures: TTE * Normal LV chamber size with mild concentric LVH. * Hyperdynamic LV systolic function, EF >70%. * No segmental left ventricular wall motion abnormalities are noted. * Grade II diastolci dysfunction. * There is no significant aortic regurgitation. 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 * The gradient is normal for this prosthetic aortic valve. * Trace mitral regurgitation. Current Inpatient Medications: Current Inpatient Medications Medications (Trade) Dose Ordered Sig/Mike Route Start Time Stop Time Status Last Admin Dose Admin Acetaminophen (Tylenol Tab) 650 mg Q4H PRN PO 07/22/16 11:15 08/21/16 11:14 07/23/16 13:02 650 MG Ondansetron HCl (Zofran Inj) 4 mg Q6H PRN IV 07/22/16 11:15 08/21/16 11:14 Nitroglycerin (Nitrostat Tab) 0.4 mg UD PRN SL 07/22/16 11:15 08/21/16 11:14 Levetiracetam (Keppra Tab) 500 mg BID PO 07/22/16 21:00 08/21/16 20:59 07/23/16 08:20 500 MG Losartan Potassium (coZAAR TAB) 25 mg DAILY PO 07/23/16 09:00 08/22/16 08:59 07/23/16 08:21 25 MG Tiotropium [place] 1 puff 1 puff DAILY INH 07/23/16 09:00 08/22/16 08:59 07/23/16 08:23 1 PUFF Thiamine HCl/ Syringe (Vitamin B-1 Inj/ Syringe) 10 ml @ 2 mls/min DAILY IV 07/23/16 09:00 08/22/16 08:59 07/23/16 08:22 2 MLS/MIN Lorazepam (Ativan Tab) 1 mg UD PRN PO 07/22/16 12:45 08/21/16 12:44 Gabapentin (Neurontin Tab) 600 mg Q8H PO 07/23/16 14:00 07/24/16 06:01 07/23/16 14:32 600 MG Gabapentin (Neurontin Tab) 600 mg Q12H PO 07/24/16 18:00 07/25/16 06:01 Gabapentin 600 mg 600 mg Q24H PO 07/25/16 06:00 07/25/16 06:01 Cefazolin Sodium/ Dextrose (Ancef Iv/D5 50ml) 52.5 ml @ 100 mls/hr Q8H IV 07/22/16 16:00 08/01/16 15:59 07/23/16 16:22 100 MLS/HR Sotalol HCl (Betapace Tab) 40 mg BID PO 07/22/16 21:00 08/21/16 20:59 07/23/16 08:21 40 MG Quetiapine Fumarate (seroQUEL TAB) 25 mg HS PO 07/22/16 21:00 08/21/16 20:59 07/22/16 21:00 25 MG Diphenhydramine HCl (Benadryl Cap) 25 mg TODAY@2000 ONCE PO 07/23/16 20:00 07/23/16 20:01 Amlodipine Besylate (Norvasc Tab) 5 mg QAM PO 07/24/16 09:00 08/23/16 08:59 Morphine Sulfate (MoRPHine SULFATE INJ) 3 mg Q4 PRN IV 07/23/16 15:00 08/06/16 14:59 07/23/16 15:51 3 MG
[2016-07-23] MEDS: QUETIAPINE FUMARATE 25 MG TAB PO SCH (21:10)
--- NOTE | 2016-07-23 21:18 | EMERGENCY ROOM VISIT NOTE ---
ED Visit Note First contact with patient: 07:41 I have personally seen and evaluated the patient with the PA. I agree with the diagnosis and management decisions and have been personally involved in the case. Pt was given Afrin nasal spray protocol unsuccessfully. Patient was given Hemoderm powder to bilateral nares with continued bleeding. Nasal packing was applied to the left nares. Anterior Nasal Packing Indication: Continued epistaxis Verbal consent obtained. Risks and benefits were explained with the usual customary discussion. A time out was taken. Clots were removed with suction. The left naris was prepped with Afrin and lidocaine. A 5.5-cm nasal balloon was placed in a standard fashion. The patient tolerated this well. Hemostasis was achieved with approximately 10 mL's of air. No complications. Patient was discussed with Dr. Belle of coagulation. She has recommended 2 mg of IV vitamin K. The patient's case was discussed with the hospitalist service. He will be evaluated for further management. Please see Bill Hopkins PA-C's notes for further details of the history, physical and visit.
[2016-07-24] VITALS (10 sets, daily range): BP systolic 115–168; BP diastolic 60–81; PULSE 57–72; TEMP 36.3–36.9; O2SAT 94–99
[2016-07-24] MEDS: GABAPENTIN 600 MG TAB PO SCH ×2 (05:40→17:49)
[2016-07-24 06:23] LABS: HEMATOCRIT 36.5 % (42-52); MEAN CELL VOLUME 86.7 fL (80-100); MEAN CORPUSCULAR HEMOGLOBIN 29.5 pg (25-34); MEAN PLATELET VOLUME 10.6 fL (7.4-10.4); PLATELET COUNT 154 K/uL (130-400); RED BLOOD COUNT 4.21 M/uL (4.7-6.1); WHITE BLOOD COUNT 9.81 K/uL (4.8-10.8)
[2016-07-24 06:28] LABS: INR 1.1 (0.9-1.1)
[2016-07-24 06:50] LABS: BUN/CREATININE RATIO 9.5 (10-20); CALCIUM 8.4 mg/dl (8.5-10.1); CREATININE 1.1 mg/dl (0.60-1.40); POTASSIUM 3.8 mmol/L (3.5-5.1)
[2016-07-24] MEDS: MoRPHine SULFATE 4 MG/ML 1 ML CARP\\VIAL IV PRN ×3 (07:34→17:12)
[2016-07-24] MEDS: AMLODIPINE BESYLATE 5 MG TAB PO SCH (08:14)
[2016-07-24] MEDS: THIAMINE HCL 100 MG TAB PO SCH (08:14)
[2016-07-24] MEDS: LEVETIRACETAM 500 MG TAB PO SCH ×2 (08:14→19:38)
[2016-07-24] MEDS: TIOTROPIUM BROMIDE 5 PUFF/90 MCG INH INH SCH (08:15)
[2016-07-24] MEDS: SOTALOL HCL 80 MG TAB PO SCH ×2 (08:15→19:38)
[2016-07-24] MEDS: LOSARTAN POTASSIUM 25 MG TAB PO SCH (08:15)
--- NOTE | 2016-07-24 10:05 | Cardiology Follow-Up ---
Subjective Subjective Date of Service: Jul 24, 2016. Pt evaluation today including: conversation w/ patient, physical exam, chart review, lab review, review of studies, review of inpatient medication list Additional Details: Pt seen and examined, states that he's feeling well. Headache resolved with pain meds. Only small amounts of bleeding remain. Denies cp, sob, palpitations, lightheadedness or dizziness. tele reviewed: sinus rhythm without arrhythmia or significant ectopy. Review of Systems Respiratory: No cough, No dyspnea at rest, No dyspnea on exertion, No hemoptysis, No problem reported, No see HPI, No shortness of breath, No sputum, No wheezing Cardiac: No PND, No chest pain, No claudication, No edema, No orthopnea, No palpitations, No problem reported, No see HPI Objective Vital Signs Last Vital Signs Documentation Date Time Temp Pulse Resp B/P Pulse Ox O2 Delivery O2 Flow Rate FiO2 07/24/16 08:00 99 Room Air 07/24/16 07:14 36.5 61 18 168/79 Physical Exam: General Appearance: WD/WN, no apparent distress Eyes: bilateral eyes EOMI, bilateral eyes PERRL, bilateral eyes normal inspection ENT: + pertinent finding (tamponade device in left nostril) Neck: supple, no adenopathy, thyroid normal, no JVD Respiratory/Chest: chest non-tender, lungs clear, normal breath sounds, no respiratory distress, no accessory muscle use Cardiovascular: regular rate, rhythm, no edema, no JVD, + systolic murmur (3/6 mid to late. 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 severe epitaxis stable tamponade device in place INR reversed coumadin to be restarted today 2. mechanical avr INR reversed coumadin to be restarted today no change in physical exam 3. paroxysmal atrial flutter has remained in sinus cont sotalol cont to monitor on tele
[2016-07-24] MEDS: WARFARIN SOD 2.5 MG TAB PO SCH (15:59)
[2016-07-24] MEDS ORDERED: WARFARIN SOD 2.5 MG TAB PO ONE (16:00)
--- NOTE | 2016-07-24 16:56 | Progress Note ---
Medicine Progress Note Date & Time of Visit: Jul 24, 2016 at 16:54. Subjective Patient seen and examined. Feeling good today. Drainage in back of throat has improved. Objective Last 8 Hrs Date Time Temp Pulse Resp B/P Pulse Ox O2 Delivery O2 Flow Rate FiO2 07/24/16 15:27 36.7 66 18 149/75 97 Room Air 07/24/16 12:00 96 Room Air 07/24/16 11:18 36.4 57 18 131/68 96 Room Air Physical Exam: General-awake; alert; NAD Eyes-EOMI; no scleral icterus ENT-left nares with packing and dried blood; no active bleeding noted Neck-no stridor; trachea midline Lungs-CTA bilaterally; no wheezes/crackles Heart-RRR; no m/r/g Abdomen-soft; NTND; nBS Extremities-no c/c/e; no deformity Neuro-no gross focal deficits Laboratory Results: Last 24 Hours Test 07/24/16 06:05 White Blood Count 9.81 K/uL Red Blood Count 4.21 M/uL Hemoglobin 12.4 g/dL Hematocrit 36.5 % Mean Corpuscular Volume 86.7 fL Mean Corpuscular Hemoglobin 29.5 pg Mean Corpuscular Hemoglobin Concent 34.0 g/dl RDW Standard Deviation 42.9 fL RDW Coefficient of Variation 13.4 % Platelet Count 154 K/uL Mean Platelet Volume 10.6 fL Prothrombin Time 12.0 SECONDS Prothromb Time International Ratio 1.1 Sodium Level 139 mmol/L Potassium Level 3.8 mmol/L Chloride Level 105 mmol/L Carbon Dioxide Level 27 mmol/L Anion Gap 7.0 mmol/L Blood Urea Nitrogen 11 mg/dl Creatinine 1.10 mg/dl Est Creatinine Clear Calc Drug Dose 70.6 ml/min Estimated GFR () 80.1 Estimated GFR (Non- 69.1 BUN/Creatinine Ratio 9.5 Random Glucose 105 mg/dl Calcium Level 8.4 mg/dl Assessment & Plan Coumadin induced coagulopathy causing EPISTAXIS -received Vit K and FFP -Coumadin initially held; d/w Cardiology and ENT and will resume today -rhino rocket in place (possible removal on Thursday) -ENT consulted ALCOHOL ABUSE -watch for withdrawal sxs -continue gabapentin protocol -benzos PRN -consulted psych ATRIAL FLUTTER -Coumadin initially held; d/w Cardiology and ENT and will resume today -cont sotalol -Cardiology consulted H/O AVR -Coumadin initially held; d/w Cardiology and ENT and will resume today -Cardiology consulted DEPRESSION/ANXIETY -consulted psych -Zoloft discontinued -Seroquel started for mood stabilization HTN -cont losartan -amlodipine started BPH -start tamsulosin per patient request DVT PROPHYLAXIS -SCDs only in setting of epistaxis Discharge planning: home Consultants: ENT Cardiology Psychiatry Procedures: TTE * Normal LV chamber size with mild concentric LVH. * Hyperdynamic LV systolic function, EF >70%. * No segmental left ventricular wall motion abnormalities are noted. * Grade II diastolci dysfunction. * There is no significant aortic regurgitation. 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 * The gradient is normal for this prosthetic aortic valve. * Trace mitral regurgitation. Current Inpatient Medications: Current Inpatient Medications Medications (Trade) Dose Ordered Sig/Mike Route Start Time Stop Time Status Last Admin Dose Admin Acetaminophen (Tylenol Tab) 650 mg Q4H PRN PO 07/22/16 11:15 08/21/16 11:14 07/23/16 13:02 650 MG Ondansetron HCl (Zofran Inj) 4 mg Q6H PRN IV 07/22/16 11:15 08/21/16 11:14 Nitroglycerin (Nitrostat Tab) 0.4 mg UD PRN SL 07/22/16 11:15 08/21/16 11:14 Levetiracetam (Keppra Tab) 500 mg BID PO 07/22/16 21:00 08/21/16 20:59 07/24/16 08:14 500 MG Losartan Potassium (coZAAR TAB) 25 mg DAILY PO 07/23/16 09:00 08/22/16 08:59 07/24/16 08:15 25 MG Tiotropium [place] (Spiriva Handihaler Inhaler) 1 puff DAILY INH 07/23/16 09:00 08/22/16 08:59 07/24/16 08:15 1 PUFF Lorazepam (Ativan Tab) 1 mg UD PRN PO 07/22/16 12:45 08/21/16 12:44 Gabapentin (Neurontin Tab) 600 mg Q12H PO 07/24/16 18:00 07/25/16 06:01 Gabapentin (Neurontin Tab) 600 mg Q24H PO 07/25/16 06:00 07/25/16 06:01 Sotalol HCl (Betapace Tab) 40 mg BID PO 07/22/16 21:00 08/21/16 20:59 07/24/16 08:15 40 MG Quetiapine Fumarate (seroQUEL TAB) 25 mg HS PO 07/22/16 21:00 08/21/16 20:59 07/23/16 21:10 25 MG Amlodipine Besylate (Norvasc Tab) 5 mg QAM PO 07/24/16 09:00 08/23/16 08:59 07/24/16 08:14 5 MG Morphine Sulfate (MoRPHine SULFATE INJ) 3 mg Q4 PRN IV 07/23/16 15:00 08/06/16 14:59 07/24/16 13:13 3 MG Warfarin Sodium (Coumadin Tab) 2.5 mg DAILY@1600 PO 07/24/16 16:00 08/23/16 15:59 07/24/16 15:59 2.5 MG Thiamine HCl (Vitamin B-1 Tab) 100 mg QAM PO 07/24/16 09:00 08/23/16 08:59 07/24/16 08:14 100 MG Tamsulosin HCl (Flomax Cap) 0.4 mg HS PO 07/24/16 21:00 08/23/16 20:59
[2016-07-24] MEDS: QUETIAPINE FUMARATE 25 MG TAB PO SCH (19:38)
[2016-07-24] MEDS: TAMSULOSIN HCL 0.4 MG CAP PO SCH (19:39)
[2016-07-25 04:27] VITALS: BP 126/76; PULSE 89; TEMP 36.4; O2SAT 96
[2016-07-25 05:54] LABS: HEMATOCRIT 37.7 % (42-52); MEAN CELL VOLUME 86.5 fL (80-100); MEAN CORPUSCULAR HEMOGLOBIN 29.4 pg (25-34); MEAN PLATELET VOLUME 10.8 fL (7.4-10.4); PLATELET COUNT 166 K/uL (130-400); RED BLOOD COUNT 4.36 M/uL (4.7-6.1); WHITE BLOOD COUNT 8.41 K/uL (4.8-10.8)
[2016-07-25] MEDS ORDERED: GABAPENTIN 600 MG TAB PO SCH (06:00)
[2016-07-25 06:02] LABS: INR 1.1 (0.9-1.1); PROTHROMBIN TIME (PATIENT) 11.6 SECONDS (9.0-12.0)
[2016-07-25] MEDS: GABAPENTIN 600 MG TAB PO SCH (06:11)
[2016-07-25 07:38] VITALS: BP 129/77; PULSE 64; TEMP 36.6; O2SAT 97
[2016-07-25] MEDS: LOSARTAN POTASSIUM 25 MG TAB PO SCH (08:23)
[2016-07-25] MEDS: LEVETIRACETAM 500 MG TAB PO SCH ×2 (08:23→20:44)
[2016-07-25] MEDS: TIOTROPIUM BROMIDE 5 PUFF/90 MCG INH INH SCH (08:23)
[2016-07-25] MEDS: AMLODIPINE BESYLATE 5 MG TAB PO SCH (08:23)
[2016-07-25] MEDS: SOTALOL HCL 80 MG TAB PO SCH ×2 (08:24→20:45)
[2016-07-25] MEDS: THIAMINE HCL 100 MG TAB PO SCH (08:24)
[2016-07-25] MEDS: MoRPHine SULFATE 4 MG/ML 1 ML CARP\\VIAL IV PRN ×2 (08:29→15:50)
--- NOTE | 2016-07-25 10:41 | Psychiatric Progress Notes ---
Psychiatric Progress Note Date of Service Jul 25, 2016. Notes ID: Patient reviewed with liaison nurse. Interim progress reviewed since initial consult performed on 07/22/16. CC: "I feel like I'm more in control" HPI: states he has felt more himself around his , denies ETOH withdrawal symptoms. ROS: nasal packing in place, sleep improved, no abnormal motor movements/muscle stiffness MSE: alert, cooperative, speech normal, thoughts organized, continues to deny SI /HI/singh Imp: mood disorder related to GMC (bipolar type) Plan: titrate Seroquel to 50 mg po qhs liaison still working to confirm appt with [facility].
[2016-07-25 11:19] VITALS: BP 137/77; PULSE 94; TEMP 36.4; O2SAT 98
[2016-07-25 15:08] VITALS: BP 125/77; PULSE 70; TEMP 36.4; O2SAT 97
--- NOTE | 2016-07-25 15:42 | Cardiology Follow-Up ---
Subjective Subjective Date of Service: Jul 25, 2016. Pt evaluation today including: conversation w/ patient, conversation w/ family , physical exam, chart review, lab review, review of studies, review of inpatient medication list Additional Details: Pt seen and examined while shaving in bathroom. No complaints. Believes bleeding has stopped. Denies cp, sob, palpitation, lightheadedness or dizziness. Tele reviewed: transient afib/flutter resolved, currently sinus. Review of Systems Respiratory: No cough, No dyspnea at rest, No dyspnea on exertion, No hemoptysis, No problem reported, No see HPI, No shortness of breath, No sputum, No wheezing Cardiac: No PND, No chest pain, No claudication, No edema, No orthopnea, No palpitations, No problem reported, No see HPI Objective Vital Signs Last Vital Signs Documentation Date Time Temp Pulse Resp B/P Pulse Ox O2 Delivery O2 Flow Rate FiO2 07/25/16 15:08 36.4 70 16 125/77 97 Room Air Physical Exam: General Appearance: WD/WN, no apparent distress Eyes: bilateral eyes EOMI, bilateral eyes PERRL, bilateral eyes normal inspection ENT: + pertinent finding (tamponade device in left nostril) Neck: supple, no adenopathy, thyroid normal, no JVD Respiratory/Chest: chest non-tender, lungs clear, normal breath sounds, no respiratory distress, no accessory muscle use Cardiovascular: regular rate, rhythm, no edema, no JVD, + systolic murmur (3/6 mid to late. 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 severe epitaxis stable tamponade device in place INR reversed coumadin restarted plan to remove device tomorrow. 2. mechanical avr coumadin restarted will perform a very limited f/u echo in AM to follow velocity/gradient no change in physical exam 3. paroxysmal atrial flutter resolved cont sotalol coumadin restarted cont to monitor on tele Discharge planning: home
[2016-07-25] MEDS: WARFARIN SOD 2.5 MG TAB PO SCH (15:49)
[2016-07-25] MEDS ORDERED: WARFARIN SOD 2.5 MG TAB PO ONE (16:00)
[2016-07-25] MEDS: SENNA 8.6 MG TAB PO SCH (16:37)
--- NOTE | 2016-07-25 18:21 | Progress Note ---
Medicine Progress Note Date & Time of Visit: Jul 25, 2016 at 18:15. Subjective Patient seen and examined. Feeling well and without complaints. Objective Last 8 Hrs Date Time Temp Pulse Resp B/P Pulse Ox O2 Delivery O2 Flow Rate FiO2 07/25/16 16:00 Room Air 07/25/16 15:08 36.4 70 16 125/77 97 Room Air 07/25/16 11:19 36.4 94 18 137/77 98 Room Air Physical Exam: General-awake; alert; NAD Eyes-EOMI; no scleral icterus ENT-left nares with packing and dried blood; no active bleeding noted Neck-no stridor; trachea midline Lungs-CTA bilaterally; no wheezes/crackles Heart-RRR; no m/r/g Abdomen-soft; NTND; nBS Extremities-no c/c/e; no deformity Neuro-no gross focal deficits Laboratory Results: Last 24 Hours Test 07/25/16 05:23 White Blood Count 8.41 K/uL Red Blood Count 4.36 M/uL Hemoglobin 12.8 g/dL Hematocrit 37.7 % Mean Corpuscular Volume 86.5 fL Mean Corpuscular Hemoglobin 29.4 pg Mean Corpuscular Hemoglobin Concent 34.0 g/dl RDW Standard Deviation 42.0 fL RDW Coefficient of Variation 13.3 % Platelet Count 166 K/uL Mean Platelet Volume 10.8 fL Prothrombin Time 11.6 SECONDS Prothromb Time International Ratio 1.1 Assessment & Plan Coumadin induced coagulopathy causing EPISTAXIS -received Vit K and FFP -Coumadin initially held; d/w Cardiology and ENT and Coumadin resumed -rhino rocket in place (possible removal on Thursday) -ENT consulted ALCOHOL ABUSE -watch for withdrawal sxs -continue gabapentin protocol -benzos PRN -consulted psych ATRIAL FLUTTER -Coumadin initially held; d/w Cardiology and ENT and Coumadin resumed -cont sotalol -Cardiology consulted H/O AVR -Coumadin initially held; d/w Cardiology and ENT and Coumadin resumed -Cardiology consulted DEPRESSION/ANXIETY -consulted psych -Zoloft discontinued -Seroquel dose increased HTN -cont losartan -amlodipine started BPH -started tamsulosin per patient request DVT PROPHYLAXIS -SCDs only in setting of epistaxis Discharge planning: home Consultants: ENT Cardiology Psychiatry Procedures: TTE * Normal LV chamber size with mild concentric LVH. * Hyperdynamic LV systolic function, EF >70%. * No segmental left ventricular wall motion abnormalities are noted. * Grade II diastolci dysfunction. * There is no significant aortic regurgitation. 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 * The gradient is normal for this prosthetic aortic valve. * Trace mitral regurgitation. Current Inpatient Medications: Current Inpatient Medications Medications (Trade) Dose Ordered Sig/Mike Route Start Time Stop Time Status Last Admin Dose Admin Acetaminophen (Tylenol Tab) 650 mg Q4H PRN PO 07/22/16 11:15 08/21/16 11:14 07/23/16 13:02 650 MG Ondansetron HCl (Zofran Inj) 4 mg Q6H PRN IV 07/22/16 11:15 08/21/16 11:14 Nitroglycerin (Nitrostat Tab) 0.4 mg UD PRN SL 07/22/16 11:15 08/21/16 11:14 Levetiracetam (Keppra Tab) 500 mg BID PO 07/22/16 21:00 08/21/16 20:59 07/25/16 08:23 500 MG Losartan Potassium (coZAAR TAB) 25 mg DAILY PO 07/23/16 09:00 08/22/16 08:59 07/25/16 08:23 25 MG Tiotropium [place] (Spiriva Handihaler Inhaler) 1 puff DAILY INH 07/23/16 09:00 08/22/16 08:59 07/25/16 08:23 1 PUFF Lorazepam (Ativan Tab) 1 mg UD PRN PO 07/22/16 12:45 08/21/16 12:44 Sotalol HCl (Betapace Tab) 40 mg BID PO 07/22/16 21:00 08/21/16 20:59 07/25/16 08:24 40 MG Amlodipine Besylate (Norvasc Tab) 5 mg QAM PO 07/24/16 09:00 08/23/16 08:59 07/25/16 08:23 5 MG Morphine Sulfate (MoRPHine SULFATE INJ) 3 mg Q4 PRN IV 07/23/16 15:00 08/06/16 14:59 07/25/16 15:50 3 MG Warfarin Sodium (Coumadin Tab) 2.5 mg DAILY@1600 PO 07/24/16 16:00 08/23/16 15:59 07/25/16 15:49 2.5 MG Thiamine HCl (Vitamin B-1 Tab) 100 mg QAM PO 07/24/16 09:00 08/23/16 08:59 07/25/16 08:24 100 MG Tamsulosin HCl (Flomax Cap) 0.4 mg HS PO 07/24/16 21:00 08/23/16 20:59 07/24/16 19:39 0.4 MG Gabapentin (Neurontin Tab) 600 mg Q24H PO 07/26/16 06:00 07/26/16 06:01 Quetiapine Fumarate (seroQUEL TAB) 50 mg HS PO 07/25/16 21:00 08/24/16 20:59 Senna (Senokot Tab) 8.6 mg QAM PO 07/25/16 16:00 08/24/16 15:59 07/25/16 16:37 8.6 MG
[2016-07-25 19:47] VITALS: BP_SYST 162; BP_SYST 163; BP_DIAS 84; BP_DIAS 90; PULSE 66; TEMP 36.8; O2SAT 97
[2016-07-25] MEDS: TAMSULOSIN HCL 0.4 MG CAP PO SCH (20:44)
[2016-07-25] MEDS: QUETIAPINE FUMARATE 25 MG TAB PO SCH (20:44)
[2016-07-25 23:43] VITALS: BP 124/67; PULSE 63; TEMP 36.2; O2SAT 95
[2016-07-26 04:09] VITALS: BP 127/69; PULSE 60; TEMP 36.3; O2SAT 98
[2016-07-26] MEDS ORDERED: BISACODYL 10 MG SUPP PR STA (05:02)
--- NOTE | 2016-07-26 05:07 | Progress Note ---
Progress Note ATTENDING NOTE : pt complains of abdominal distention and bloating P/E: abdomen -soft tenderness on lower abdomen bladder area and rt and left lower quad pt mentions of being constipated and having difficulty in urination -poor stream bed side bladder scan revealed > 900 retained urine [place] catheter ordered will do UA and culture if needed for urine sample possible urinary retention due to BPH Flomax ordered Xray of KUB -my reading , official report pending constipation with fecal load in colon ordered for bowel regimen will update AM provider
[2016-07-26] MEDS ORDERED: DOCUSATE SODIUM 100 MG CAP PO STA (05:28)
[2016-07-26] MEDS ORDERED: TAMSULOSIN HCL 0.4 MG CAP PO STA (05:28)
[2016-07-26] MEDS ORDERED: GABAPENTIN 600 MG TAB PO SCH (06:00)
--- NOTE | 2016-07-26 08:03 | DIAGNOSTIC IMAGING REPORT ---
KUB CLINICAL HISTORY: Generalized abdominal pain. FINDINGS: An AP, portable, supine abdominal radiograph is correlated with abdominal CT dated 10/01/2008. There is a nonobstructed abdominal bowel gas pattern noting moderate colonic fecal retention. No evidence of intraperitoneal free air is seen on this supine view. Cholecystectomy clips are identified in the right upper quadrant. A 4 mm calcification projecting over the right mid abdomen may represent a nonobstructing right renal stone versus colonic contents. The bony structures appear intact. IMPRESSION: 1. Nonobstructed abdominal bowel gas pattern noting moderate constipation. 2. A small calcification projecting over the right abdomen may represent a nonobstructing kidney stone or possibly colonic contents. Electronically signed by: Jean Carlos Mcmullen M.D. 07/26/2016 8:02 AM Dictated Date/Time: 07/26/2016 8:00 AM
[2016-07-26 08:04] VITALS: BP 148/79; PULSE 60; O2SAT 96
[2016-07-26] MEDS: TIOTROPIUM BROMIDE 5 PUFF/90 MCG INH INH SCH (08:33)
[2016-07-26] MEDS: SOTALOL HCL 80 MG TAB PO SCH ×2 (08:33→20:15)
[2016-07-26] MEDS: THIAMINE HCL 100 MG TAB PO SCH (08:34)
[2016-07-26] MEDS: AMLODIPINE BESYLATE 5 MG TAB PO SCH (08:34)
[2016-07-26] MEDS: SENNA 8.6 MG TAB PO SCH (08:34)
[2016-07-26] MEDS: DOCUSATE SODIUM 100 MG CAP PO SCH ×2 (08:34→20:13)
[2016-07-26] MEDS: LEVETIRACETAM 500 MG TAB PO SCH ×2 (08:34→20:11)
[2016-07-26] MEDS: POLYETHYLENE (MIRALAX) 17 GM PACK PO SCH (08:34)
[2016-07-26] MEDS: LOSARTAN POTASSIUM 25 MG TAB PO SCH (08:34)
[2016-07-26 08:42] LABS: HEMATOCRIT 35.1 % (42-52)
[2016-07-26 08:49] LABS: INR 1.4 (0.9-1.1); PROTHROMBIN TIME (PATIENT) 15.3 SECONDS (9.0-12.0)
[2016-07-26 09:34] LABS: URINE APPEARANCE CLEAR (CLEAR); URINE BILIRUBIN NEG (NEG); URINE COLOR YELLOW; URINE NITRITE NEG (NEG); URINE SPECIFIC GRAVITY 1.007 (1.000-1.030); UROBILINOGEN NEG (NEG); ZZURINE CULT IF INDIC CATH NO
[2016-07-26 09:45] LABS: MANUAL MICROSCOPIC REQUIRED? NO; REVIEW REQ? NO
[2016-07-26 11:03] VITALS: BP 148/78; PULSE 63; TEMP 36.4; O2SAT 99
--- NOTE | 2016-07-26 12:41 | PROGRESS NOTE ---
DATE: 07/26/2016 FOLLOWUP VISIT SUBJECTIVE: The patient is a 66-year-old with a history of a mechanical aortic valve, who has been on long-term Coumadin. He was admitted with epistaxis. A balloon inflated packing was placed in his left nostril on admission. It remains in place and we are waiting for ENT to come by and release and remove this device. He was restarted on his Coumadin after his INR was reversed with both vitamin K and fresh frozen plasma. His INR today is 1.5. He has no complaints. OBJECTIVE: GENERAL: He is alert and oriented in no acute distress. VITAL SIGNS: Blood pressure is 140/80, pulse is regular at 60. He is afebrile. HEENT: Normocephalic. Pupils are equal and reactive to light. Extraocular muscles are intact bilaterally. NECK: The neck veins are flat. Carotids have good upstrokes bilaterally without bruits. Thyroid is nonpalpable. RESPIRATORY: Breath sounds equal bilaterally and clear to auscultation. CARDIOVASCULAR: Heart has a regular rhythm. There is a mechanical S2. No S3, S4. No cardiac rubs. GASTROINTESTINAL: Abdomen is soft, nontender without organomegaly. EXTREMITIES: Free of edema, digit clubbing, or cyanosis. NEUROLOGIC: Grossly intact. SKIN: Warm to touch. LYMPH NODES: Negative to palpation. IMPRESSION: 1. Epistaxis while on Coumadin. 2. Mechanical aortic valve. RECOMMENDATIONS: As outlined above, we are waiting for the ENT service to come around and remove the inflated device in his left nostril. Once that has been complete, then the patient can be discharged per the medicine service with outpatient followup.
--- NOTE | 2016-07-26 13:15 | ECHOCARDIOGRAM REPORT ---
*NOTICE TO RECEIVING DEMOCRAT AGENCY This information is strictly Confidential and protected under [place] law. [place] law prohibits you from making any further disclosure of this information unless further disclosure is expressly permitted by the written consent of the person to whom it pertains or is authorized by law. A general authorization for the release of medical or other information is not sufficient for this purpose. Hospital accepts no responsibility if the information is made available to any other person, INCLUDING THE PATIENT. Interpretation Summary * Name: DAPHNEY BRITTON Study Date: 07/26/2016 08:07 AM BP: 127/69 mmHg * Patient Location: [facility]\S\[id number]\S\2 HR: 60 * : 1950 (M/d/yyyy) Gender: Male Height: 69 in * Age: 66 yrs Ethnicity: CA Weight: 188 lb * Ordering Physician: Foster Ortega * Performed By: Marie Hooker RDCS * * Reason For Study: Mechanical aortic valve off anticoagulation * BSA: 2.0 m2 * -- Conclusions -- * Limited views were obtained. * The gradient is normal for this prosthetic aortic valve. * The prosthetic aortic valve appears to open well. Procedure Details * A two-dimensional transthoracic echocardiogram, with color flow Doppler was performed. * A two-dimensional transthoracic echocardiogram with pulsed and continuous Doppler was performed. * Limited views were obtained. Aortic Valve * The gradient is normal for this prosthetic aortic valve. * The prosthetic aortic valve appears to open well. Doppler Measurements and Calculations Ao V2 max 226.1 cm/sec Ao max PG 20.9 mmHg Ao max PG (full) 17.2 mmHg Ao V2 mean 139.5 cm/sec Ao mean PG 9.4 mmHg Ao V2 VTI 43.8 cm LV V1 max PG 3.7 mmHg LV V1 max 96.0 cm/sec
[2016-07-26 15:45] VITALS: BP 113/72; PULSE 96; TEMP 36.4; O2SAT 96
[2016-07-26] MEDS ORDERED: TRAMADOL HCL 50 MG TAB PO PRN (17:30)
[2016-07-26] MEDS: WARFARIN SOD 2.5 MG TAB PO SCH (17:31)
--- NOTE | 2016-07-26 17:31 | Progress Note ---
Medicine Progress Note Date & Time of Visit: Jul 26, 2016 at 17:26. Subjective Patient seen and examined. Had urinary retention this morning. Had jordan catheter placed. Would like to have catheter removed. Anxious to have nasal packing removed. Objective Last 8 Hrs Date Time Temp Pulse Resp B/P Pulse Ox O2 Delivery O2 Flow Rate FiO2 07/26/16 15:45 36.4 96 22 113/72 96 Room Air 07/26/16 12:30 Room Air 07/26/16 11:03 36.4 63 18 148/78 99 Physical Exam: General-awake; alert; NAD Eyes-EOMI; no scleral icterus ENT-left nares with packing and dried blood; no active bleeding noted Neck-no stridor; trachea midline Lungs-CTA bilaterally; no wheezes/crackles Heart-RRR; no m/r/g Abdomen-soft; NTND; nBS Extremities-no c/c/e; no deformity Neuro-no gross focal deficits Laboratory Results: Last 24 Hours Test 07/26/16 08:16 07/26/16 09:29 Hemoglobin 12.1 g/dL Hematocrit 35.1 % Prothrombin Time 15.3 SECONDS Prothromb Time International Ratio 1.4 Urine Color YELLOW Urine Appearance CLEAR Urine pH 7.0 Urine Specific [place] 1.007 Urine Protein NEG Urine Glucose (UA) NEG Urine Ketones NEG Urine Occult Blood 2+ Urine Nitrite NEG Urine Bilirubin NEG Urine Urobilinogen NEG Urine Leukocyte Esterase TRACE Urine WBC (Auto) 1-5 /hpf Urine RBC (Auto) >30 /hpf Urine Hyaline Casts (Auto) 1-5 /lpf Urine Epithelial Cells (Auto) 10-20 /lpf Urine Bacteria (Auto) NEG Assessment & Plan Coumadin induced coagulopathy causing EPISTAXIS -received Vit K and FFP -Coumadin initially held; d/w Cardiology and ENT and Coumadin resumed -rhino rocket in place (removal on Thursday) -ENT consulted ALCOHOL ABUSE -watch for withdrawal sxs -completed gabapentin protocol -benzos PRN -consulted psych ATRIAL FLUTTER -Coumadin initially held; d/w Cardiology and ENT and Coumadin resumed -cont sotalol -Cardiology consulted H/O AVR -Coumadin initially held; d/w Cardiology and ENT and Coumadin resumed -Cardiology consulted DEPRESSION/ANXIETY -consulted psych -Zoloft discontinued -Seroquel dose increased HTN -cont losartan -amlodipine started BPH -started tamsulosin -episode of urinary retention this morning (possibly morphine contributing - therefore discontinued) -monitor UOP after jordan removal DVT PROPHYLAXIS -SCDs only in setting of epistaxis Discharge planning: home Consultants: ENT Cardiology Psychiatry Procedures: TTE * Normal LV chamber size with mild concentric LVH. * Hyperdynamic LV systolic function, EF >70%. * No segmental left ventricular wall motion abnormalities are noted. * Grade II diastolci dysfunction. * There is no significant aortic regurgitation. 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 * The gradient is normal for this prosthetic aortic valve. * Trace mitral regurgitation. Repeat TTE * Limited views were obtained. * The gradient is normal for this prosthetic aortic valve. * The prosthetic aortic valve appears to open well. Current Inpatient Medications: Current Inpatient Medications Medications (Trade) Dose Ordered Sig/Mike Route Start Time Stop Time Status Last Admin Dose Admin Acetaminophen (Tylenol Tab) 650 mg Q4H PRN PO 07/22/16 11:15 08/21/16 11:14 07/23/16 13:02 650 MG Ondansetron HCl (Zofran Inj) 4 mg Q6H PRN IV 07/22/16 11:15 08/21/16 11:14 Nitroglycerin (Nitrostat Tab) 0.4 mg UD PRN SL 07/22/16 11:15 08/21/16 11:14 Levetiracetam (Keppra Tab) 500 mg BID PO 07/22/16 21:00 08/21/16 20:59 07/26/16 08:34 500 MG Losartan Potassium (coZAAR TAB) 25 mg DAILY PO 07/23/16 09:00 08/22/16 08:59 07/26/16 08:34 25 MG Tiotropium [place] (Spiriva Handihaler Inhaler) 1 puff DAILY INH 07/23/16 09:00 08/22/16 08:59 07/26/16 08:33 1 PUFF Lorazepam (Ativan Tab) 1 mg UD PRN PO 07/22/16 12:45 08/21/16 12:44 Sotalol HCl (Betapace Tab) 40 mg BID PO 07/22/16 21:00 08/21/16 20:59 07/26/16 08:33 40 MG Amlodipine Besylate (Norvasc Tab) 5 mg QAM PO 07/24/16 09:00 08/23/16 08:59 07/26/16 08:34 5 MG Warfarin Sodium (Coumadin Tab) 2.5 mg DAILY@1600 PO 07/24/16 16:00 08/23/16 15:59 07/25/16 15:49 2.5 MG Thiamine HCl (Vitamin B-1 Tab) 100 mg QAM PO 07/24/16 09:00 08/23/16 08:59 07/26/16 08:34 100 MG Tamsulosin HCl (Flomax Cap) 0.4 mg HS PO 07/24/16 21:00 08/23/16 20:59 07/25/16 20:44 0.4 MG Quetiapine Fumarate (seroQUEL TAB) 50 mg HS PO 07/25/16 21:00 08/24/16 20:59 07/25/16 20:44 50 MG Senna (Senokot Tab) 8.6 mg QAM PO 07/25/16 16:00 08/24/16 15:59 07/26/16 08:34 8.6 MG Docusate Sodium (coLACE CAP) 100 mg BID PO 07/26/16 09:00 08/25/16 08:59 07/26/16 08:34 100 MG Polyethylene (Miralax Powder Packet) 17 gm DAILY PO 07/26/16 09:00 08/25/16 08:59 07/26/16 08:34 17 GM
[2016-07-26] MEDS: TAMSULOSIN HCL 0.4 MG CAP PO SCH (20:11)
[2016-07-26 20:13] VITALS: BP 165/91; PULSE 62; TEMP 36.5; O2SAT 98
[2016-07-26] MEDS: QUETIAPINE FUMARATE 25 MG TAB PO SCH (20:14)
[2016-07-26] MEDS ORDERED: TAMSULOSIN HCL 0.4 MG CAP PO SCH (21:00)
--- NOTE | 2016-07-26 21:24 | Progress Note ---
Progress Note NIGHT TIME ANTHROPOLOGY LECTURER HOSPITALIST NOTE : updated by Nursing -pt developed urinary retention again Buckley was taken out around 12 pm as per pt's request has not voided since bladder scan shows > 496 ml of residual urine pt refuses to have indwelling Buckley placed PRN straight cath ordered for unable to void for 6-8 hr /residual urine > 300 ml on Flomax already for possible BPH Urology consult with Dr Daugherty ordered Will update Dr Pérez in AM
[2016-07-27 00:19] VITALS: BP 117/71; PULSE 60; TEMP 36.7; O2SAT 93
[2016-07-27 04:49] VITALS: BP 113/68; PULSE 57; TEMP 36.5; O2SAT 98
[2016-07-27 07:18] LABS: HEMATOCRIT 34.7 % (42-52)
[2016-07-27 07:27] LABS: INR 1.9 (0.9-1.1); PROTHROMBIN TIME (PATIENT) 20.9 SECONDS (9.0-12.0)
[2016-07-27 07:49] VITALS: BP 114/66; PULSE 53; TEMP 35.8; O2SAT 99
--- NOTE | 2016-07-27 08:28 | Medical Consult ---
Consultation Date of Consultation: Jul 27, 2016. Attending Physician: Niyah Azevedo MD History of Present Illness 66 yo male admitted to the hospital for supratherapeutic INR, and resultant epistaxis. Patient presented to the ED on 07/22/16 with the nose bleed. Nose was packed with an anterior balloon pack by the ED. He was admitted to the hospitalist service for management of his supratherapeutic INR. At that time they did contact my partner Dr. Pineda who was fashion design professor and he recommended pack for 5 days. Patient does have a mechanical valve and has been restarted on his coumadin per the cardiology service. Today's INR is 1.9. He has not had any bleeding since placement of the pack. Denies any alleviating or exacerbating factors. No other associated symptoms. Patient does also drink 1.5 liter of whiskey a week as well. Social History Smoking Status: Former Smoker Alcohol Use: heavy (1.5 L whiskey in 1 week) Drug Use: marijuana Marital Status: Occupation Status: disabled Allergies Coded Allergies: JENNIFER Inhibitors (Verified Adverse Reaction, Mild, cough, 07/22/16) Current Inpatient Medications Current Inpatient Medications Medications (Trade) Dose Ordered Sig/Mike Route Start Time Stop Time Status Last Admin Dose Admin Acetaminophen (Tylenol Tab) 650 mg Q4H PRN PO 07/22/16 11:15 08/21/16 11:14 07/23/16 13:02 650 MG Ondansetron HCl (Zofran Inj) 4 mg Q6H PRN IV 07/22/16 11:15 08/21/16 11:14 Nitroglycerin (Nitrostat Tab) 0.4 mg UD PRN SL 07/22/16 11:15 08/21/16 11:14 Levetiracetam (Keppra Tab) 500 mg BID PO 07/22/16 21:00 08/21/16 20:59 07/26/16 20:11 500 MG Losartan Potassium (coZAAR TAB) 25 mg DAILY PO 07/23/16 09:00 08/22/16 08:59 07/26/16 08:34 25 MG Tiotropium [place] (Spiriva Handihaler Inhaler) 1 puff DAILY INH 07/23/16 09:00 08/22/16 08:59 07/26/16 08:33 1 PUFF Lorazepam (Ativan Tab) 1 mg UD PRN PO 07/22/16 12:45 08/21/16 12:44 Sotalol HCl (Betapace Tab) 40 mg BID PO 07/22/16 21:00 08/21/16 20:59 07/26/16 20:15 40 MG Amlodipine Besylate (Norvasc Tab) 5 mg QAM PO 07/24/16 09:00 08/23/16 08:59 07/26/16 08:34 5 MG Warfarin Sodium (Coumadin Tab) 2.5 mg DAILY@1600 PO 07/24/16 16:00 08/23/16 15:59 07/26/16 17:31 2.5 MG Thiamine HCl (Vitamin B-1 Tab) 100 mg QAM PO 07/24/16 09:00 08/23/16 08:59 07/26/16 08:34 100 MG Tamsulosin HCl (Flomax Cap) 0.4 mg HS PO 07/24/16 21:00 08/23/16 20:59 07/26/16 20:11 0.4 MG Quetiapine Fumarate (seroQUEL TAB) 50 mg HS PO 07/25/16 21:00 08/24/16 20:59 07/26/16 20:14 50 MG Senna (Senokot Tab) 8.6 mg QAM PO 07/25/16 16:00 08/24/16 15:59 07/26/16 08:34 8.6 MG Docusate Sodium (coLACE CAP) 100 mg BID PO 07/26/16 09:00 08/25/16 08:59 07/26/16 20:13 100 MG Polyethylene (Miralax Powder Packet) 17 gm DAILY PO 07/26/16 09:00 08/25/16 08:59 07/26/16 08:34 17 GM Tramadol HCl (Ultram Tab) 50 mg Q4H PRN PO 07/26/16 17:30 08/25/16 17:29 07/26/16 20:35 50 MG Review of Systems Constitutional: No chills, No fatigue, No fever, No problem reported, No sweats , No weakness, No weight loss Eyes: No diplopia, No discharge, No eye pain, No problem reported, No redness, No worsening of vision ENT: + problem reported (see HPI) Respiratory: No cough, No dyspnea at rest, No dyspnea on exertion, No hemoptysis, No problem reported, No shortness of breath, No sputum, No wheezing Cardiovascular: No PND, No chest pain, No claudication, No edema, No orthopnea , No palpitations, No problem reported Musculoskeletal: No calf pain, No joint pain, No muscle pain, No problem reported, No swelling Neurologic: No balance problems, No memory loss, No numbness/tingling, No paralysis, No problem reported, No vertigo, No weakness Hematologic / Lymphatic: No abnormal bleeding/bruising, No clotting problems, No night sweats, No problem reported, No swollen lymph nodes Physical Exam Date Time Temp Pulse Resp B/P Pulse Ox O2 Delivery O2 Flow Rate FiO2 07/27/16 07:49 35.8 53 18 114/66 99 07/27/16 04:49 36.5 57 20 113/68 98 Room Air 07/27/16 04:05 Room Air 07/27/16 00:19 36.7 60 20 117/71 93 Room Air 07/27/16 00:05 Room Air 07/26/16 20:13 36.5 62 18 165/91 98 Room Air 07/26/16 20:05 Room Air 07/26/16 16:00 Room Air 07/26/16 15:45 36.4 96 22 113/72 96 Room Air 07/26/16 12:30 Room Air 07/26/16 11:03 36.4 63 18 148/78 99 PROCEDURE Attention was directed to the left nare. The balloon pack was removed atraumatically. The nose was then examined. There was expected abrasions of the septum and the inferior turbinate on the left from the balloon pack. No active bleeding was noted. At this point, floseal was applied to the left nare. Patient was observed for about 10-15 minutes and no active bleeding was noted. Patient tolerated procedure well. General Appearance: WD/WN, no apparent distress Head: normocephalic, atraumatic Eyes: normal inspection, EOMI ENT: hearing grossly normal, pharynx normal, + pertinent finding (Left nare with balloon pack in place. right side of the nose with no bleeding. ) Neck: supple, no adenopathy Respiratory/Chest: no respiratory distress, no accessory muscle use Cardiovascular: no edema, no JVD Neurologic/Psych: building dismantler II-XII nml as tested, alert, oriented x 3 Skin: normal color, warm/dry Lymphatic: no adenopathy Laboratory Results Last 24 Hours Test 07/26/16 09:29 07/27/16 06:45 Urine Color YELLOW Urine Appearance CLEAR Urine pH 7.0 Urine Specific [place] 1.007 Urine Protein NEG Urine Glucose (UA) NEG Urine Ketones NEG Urine Occult Blood 2+ Urine Nitrite NEG Urine Bilirubin NEG Urine Urobilinogen NEG Urine Leukocyte Esterase TRACE Urine WBC (Auto) 1-5 /hpf Urine RBC (Auto) >30 /hpf Urine Hyaline Casts (Auto) 1-5 /lpf Urine Epithelial Cells (Auto) 10-20 /lpf Urine Bacteria (Auto) NEG Hemoglobin 12.1 g/dL Hematocrit 34.7 % Prothrombin Time 20.9 SECONDS Prothromb Time International Ratio 1.9 Assessment & Plan 66 yo male on anticoagulation who was admitted for supratherapeutic INR and left sided epistaxis, controlled with balloon pack by the ED staff - balloon pack removed - floseal placed - patient ok for discharged from ENT standpoint - recommend 5-7 day course of antibiotic (augmentin or similar coverage). Do not see he was on antibiotic while in hospital. - recommend the following for discharge for epistaxis: 1. No nose blowing for 1 week 2. Sneeze with mouth open 3. Saline spray to each nostril every few hrs for 7 days 4. No strenuous activity for 2 weeks 5. No straining in the bathroom 6. Do not manipulate the nose 7. Use humidifier in the bedroom at night 8. If nose starts to bleed, pinch the front of the nose (soft part) for 15 minutes. If bleeding persists, need to proceed back the to the ED.
[2016-07-27] MEDS: LEVETIRACETAM 500 MG TAB PO SCH (09:12)
[2016-07-27] MEDS: DOCUSATE SODIUM 100 MG CAP PO SCH (09:12)
[2016-07-27] MEDS: POLYETHYLENE (MIRALAX) 17 GM PACK PO SCH (09:12)
[2016-07-27] MEDS: LOSARTAN POTASSIUM 25 MG TAB PO SCH (09:12)
[2016-07-27] MEDS: TIOTROPIUM BROMIDE 5 PUFF/90 MCG INH INH SCH (09:12)
[2016-07-27] MEDS: AMLODIPINE BESYLATE 5 MG TAB PO SCH (09:12)
[2016-07-27] MEDS: SOTALOL HCL 80 MG TAB PO SCH (09:12)
[2016-07-27] MEDS: THIAMINE HCL 100 MG TAB PO SCH (09:12)
[2016-07-27] MEDS: SENNA 8.6 MG TAB PO SCH (09:12)
--- NOTE | 2016-07-27 11:22 | Discharge Instructions ---
Discharge Instructions Admission Reason for Admission: Epistaxis Discharge Discharge Diagnosis / Problem: Epistaxis Discharge Goals Goal(s): Improve disease control Activity Recommendations Activity Limitations: resume your previous activity . Instructions / Follow-Up Instructions / Follow-Up Please follow up with Family Medicine Dr. Street on July 31 at 11: 10am. Please follow up with Urology Dr. Daugherty on July 29 at 8:00am. You will be contacted by [facility] on Thursday regarding a mental health appointment. You will be contacted by the anticoagulation clinic regarding follow up. Current Hospital Diet Patient's current hospital diet: Regular Diet Discharge Diet Recommended Diet: Regular Diet Pending Studies Studies pending at discharge: no Medical Emergencies . Who to Call and When: Medical Emergencies: If at any time you feel your situation is an emergency, please call 911 immediately. . Non-Emergent Contact Non-Emergency issues call your: Primary Care Provider . . "Provider Documentation" section prepared by Niyah Mitchell. VTE Core Measure Inpt VTE Proph given/why not?: Warfarin (Coumadin), SCD's
[2016-07-27] MEDS ORDERED: NRV5 PO (11:28)
[2016-07-27] MEDS ORDERED: FLM4 PO (11:28)
[2016-07-27] MEDS ORDERED: SRQ25 PO (11:28)
[2016-07-27] MEDS ORDERED: SOTA80TA55 PO (11:28)
[2016-07-27] MEDS ORDERED: NON-FORMULARY MEDICATION SCH (11:30)
[2016-07-27 12:44] VITALS: BP 114/66; PULSE 53; TEMP 35.8; O2SAT 99
--- NOTE | 2016-07-27 13:41 | PROGRESS NOTE ---
DATE: 07/27/2016 This is a followup visit. The patient had his nasal packing removed by ENT. He has had no bleeding and his INR is currently 1.9. I agree the patient can be discharged to outpatient followup. Recommend to the patient that he have followup with his primary business analytics manager or somebody else in our group in the next 1-2 weeks.
[2016-07-27] MEDS ORDERED: AMOX875T PO (14:00)
--- NOTE | 2016-07-27 16:18 | Discharge Summary ---
Discharge Summary Admission Date: Jul 22, 2016 at 11:21 Discharge Date: Jul 27, 2016 Discharge Disposition: Home Principal Diagnosis: Epistaxis Secondary Diagnoses/Problems: Urinary retention Procedures: TTE * Normal LV chamber size with mild concentric LVH. * Hyperdynamic LV systolic function, EF >70%. * No segmental left ventricular wall motion abnormalities are noted. * Grade II diastolci dysfunction. * There is no significant aortic regurgitation. 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 * The gradient is normal for this prosthetic aortic valve. * Trace mitral regurgitation. Repeat TTE * Limited views were obtained. * The gradient is normal for this prosthetic aortic valve. * The prosthetic aortic valve appears to open well. Consultations: ENT Cardiology Psychiatry Medication Reconciliation New Medications: Amoxicillin & Pot Clavulanate (Augmentin 875-125 mg) 1 Tab Tab 875 MG PO BID for 5 Days, #10 TAB Amlodipine Besylate (Amlodipine Besylate) 5 Mg Tab 5 MG PO QAM for 30 Days, #30 TAB Quetiapine Fumarate (Quetiapine Fumarate) 25 Mg Tab 50 MG PO HS for 30 Days, #60 TAB Tamsulosin HCl (Tamsulosin HCl) 0.4 Mg Cap 0.4 MG PO HS for 30 Days, #30 CAP Changed Medications: Sotalol Hcl (Betapace) 80 Mg Tab 40 MG PO BID for 30 Days, #30 TAB (Changed from: DAILY) Continued Medications: Amoxicillin (Amoxil) 500 Mg Cap 4 CAPSULES PO 1 HOUR BEFORE PROCED, #21 CAP Levetiracetam (Keppra) 500 Mg Tab 500 MG PO BID, TAB Losartan Potassium (Cozaar) 25 Mg Tab 25 MG PO DAILY, TAB Tiotropium [place] (Spiriva Handihaler) 5 Puff/90 Mcg Aerp 1 CAP PO DAILY Warfarin Sod (Jantoven) 5 Mg Tab 2.5 MG PO DAILY Discontinued Medications: Sertraline (Zoloft) 25 Mg Tab 25 MG PO DAILY, TAB Admission Information HPI (per Admitting provider): This is a 66 y/o male with PMHx of Aflutter on Coumadin, Depression/Anxiety, HTN and other problems as outlined below who presents to the ED c/o intermittent nose bleed x 4 days. Pt reports that 4 days ago he developed a nosebleed. When it started it was not "streaming" but more occ drops of blood from the L nare with blood in sputum. Early this morning bleeding got much worse and patient reports that blood was "flowing" from his nose into the kitchen sink. He denies any injury to the nose. He has never had a nose bleed like this before. Pt has a history of Aflutter on Coumadin. Per at bedside , patient has also been drinking more recently. reports he drinks 1.5 L whiskey in 1 week. She feels that he is manic and went into great detail about patient past psych/neuro history. In short, patient sees neurology (Dr. Love) and takes Keppra for complex partial seizures dx in 2013. states that every 3 months patient will have a day where he is "out of it" and has a metallic taste in his mouth. After these episodes, has noticed that patient will go into a euphoric/manic state for the next three months before the cycle repeats itself. Pt has a history of psychotic episodes as well and has received inpatient treatment at the [facility] during those times. Pt has does not see a psychiatrist regularly and he has never been formally diagnosed with Bipolar disorder. has been trying to get patient in to see a psychiatrist however all the places she has called have told her they aren't accepting new patients at this time. Pt denies fever/chills, diaphoresis, chest pain, syncope , palpitations, SOB, wheezing, abd pain, N/V, bowel or bladder issues, LE edema ,calf pain, lightheadedness/dizziness. In the ED, vitals are stable. HgB 15.5. INR 4.1. Pt received Vit K and IVF and rhinorocket was placed in the L nare. Pt is stable and will be admitted for further evaluation and treatment. Physical Exam (per Admitting): General Appearance: WD/WN, no apparent distress, + pertinent finding (Pt is sitting in bed with at bedside ) Head: normocephalic, atraumatic Eyes: normal inspection ENT: hearing grossly normal, + pertinent finding (rhinorocket in place in L nare ) Neck: supple Respiratory/Chest: chest non-tender, lungs clear, normal breath sounds, no respiratory distress Cardiovascular: regular rate, rhythm, no edema Abdomen/GI: normal bowel sounds, non tender, soft Back: normal inspection Extremities/Musculoskelatal: normal inspection, no calf tenderness, no pedal edema Neurologic/Psych: alert, normal mood/affect, oriented x 3 Skin: normal color, warm/dry Hospital Course Patient was admitted with warfarin induced coagulopathy causing epistaxis. Patient does have a h/o aortic valve replacement and is on warfarin. Cardiology was consulted. INR was reversed with vitamin K and FFP. Coumadin was also held initially. Patient had a rhino rocket placed upon admission with resolution of epistaxis. ENT was consulted and removed the packing 5 days later. Patient was given instructions on nasal care and was also discharged on a 5 day course of prophylactic Augmentin. Patient was restarted on his warfarin and INR at the time of discharge was 1.9. Anticoagulation clinic will be notified of patient's hospital discharge to arrange follow up. Cardiology increased patient's Sotalol dosing to twice daily. Patient's noted increased alcohol intake over the past couple of months. Patient completed gabapentin withdrawal prophylaxis protocol without incident. Patient was counseled on cessation. Psychiatry was consulted for mood disorder. Zoloft was discontinued. Patient was started on Seroquel. Outpatient follow up was arranged for patient. Losartan was continued for hypertension and amlodipine was started. Patient c/o LUTS - hesitancy, dribbling, etc. Flomax was started per patient request. Later during hospitalization, patient was noted to have significant urinary retention. Patient's liberal use of morphine for pain control during time of nasal packing may have contributed to this. A Buckley catheter was placed and outpatient Urology evaluation was scheduled for voiding trial. Patient deemed stable for discharge with Family Medicine, Urology, mental health and anticoagulation follow up. PE on discharge: General- awake; alert; NAD Eyes- EOMI; no scleral icterus ENT- floseal to left nares; no epistaxis Neck- no stridor; trachea midline Lungs- CTA bilaterally; no wheezes/crackles Heart- RRR; no m/r/g Abdomen- soft; NTND; nBS Back- no gross abnormalities Extremities- no c/c/e; no deformity Neuro- no gross focal deficits Skin- no appreciable rash or bruise . Total time spent on discharge = This includes examination of the patient, discharge planning, medication reconciliation, and communication with other providers. Discharge Instructions Discharge Instructions Admission Reason for Admission: Epistaxis Discharge Discharge Diagnosis / Problem: Epistaxis Discharge Goals Goal(s): Improve disease control Activity Recommendations Activity Limitations: resume your previous activity . Instructions / Follow-Up Instructions / Follow-Up Please follow up with Family Medicine Dr. Street on July 31 at 11: 10am. Please follow up with Urology Dr. Daugherty on July 29 at 8:00am. You will be contacted by [facility] [facility] on Thursday regarding a mental health appointment. You will be contacted by the anticoagulation clinic regarding follow up. Current Hospital Diet Patient's current hospital diet: Regular Diet Discharge Diet Recommended Diet: Regular Diet Pending Studies Studies pending at discharge: no Medical Emergencies . Who to Call and When: Medical Emergencies: If at any time you feel your situation is an emergency, please call 911 immediately. . Non-Emergent Contact Non-Emergency issues call your: Primary Care Provider . . "Provider Documentation" section prepared by Niyah Mitchell. VTE Core Measure Inpt VTE Proph given/why not?: Warfarin (Coumadin), SCD's Additional Copies To [address] M.D. Simmons, Jennifer ., MD
[2016-07-27] MEDS ORDERED: TAMSULOSIN HCL 0.4 MG CAP PO SCH (21:00)
[2016-07-27] MEDS ORDERED: QUETIAPINE FUMARATE 25 MG TAB PO SCH (21:00)
[2016-07-28] MEDS ORDERED: AMLODIPINE BESYLATE 5 MG TAB PO SCH (09:00)
== END 2016-07-27 13:45 | disposition home or self-care (01) | DRG 813 ==
LOC: ENRESERVTM → ENRESERVDT → CANRESERV → C.EDB 07:31 → C.MED 11:21
PROVIDERS: ADMIT Hospitalist; ATTEND Internal Medicine
PROC: B245ZZZ Ultrasonography of Left Heart (ICD-10-PCS; principal; 2016-07-23)
DX: D68.32 Hemorrhagic disorder due to extrinsic circulating anticoagulants (principal); I48.92 Unspecified atrial flutter; F10.239 Alcohol dependence with withdrawal, unspecified; R04.0 Epistaxis; R33.9 Retention of urine, unspecified; I34.0 Nonrheumatic mitral (valve) insufficiency; Z79.01 Long term (current) use of anticoagulants; F32.9 Major depressive disorder, single episode, unspecified; F41.9 Anxiety disorder, unspecified; Z95.2 Presence of prosthetic heart valve; I10 Essential (primary) hypertension; N40.1 Benign prostatic hyperplasia with lower urinary tract symptoms; G40.909 Epilepsy, unspecified, not intractable, without status epilepticus; J44.9 Chronic obstructive pulmonary disease, unspecified; Z85.9 Personal history of malignant neoplasm, unspecified; Z87.891 Personal history of nicotine dependence

== ENCOUNTER 2024-06-15 06:30 | Inpatient (IN) ==
--- OUTSIDE RECORDS SUMMARY | 2024-06-15 06:50 | External Medical Summary ---
Author Name Unknown Address Unknown Organization [id number]:[facility] [place] [address] Laboratory Report Ordering Provider Test Date Status JAMILA QUIJANO 05/31/2024 16:05:44 Final Standing order for pt/inr. < br/>Please draw pt/inr every 1 to 4 weeks as requested
Results to [facility]

Warfarin Therapy
INR: 2.0-3.0 conventional anticoagulation
INR: 2.5-3.5 high intensity anticoagulation Observation Date Value Abnormality Reference (Units ) Status PT 05/31/2024 16:05:44 42.0 Above high normal 11 .6-15.2 (seconds) Final INR 05/31/2024 16:05:44 4.3 Above high normal 0. 8-1.2 Final Performing Location [facility] [place] [address]
--- OUTSIDE RECORDS SUMMARY | 2024-06-15 06:50 | External Medical Summary ---
Author Name Unknown Address Unknown Organization [id number][facility] [place] [address] Laboratory Report Ordering Provider Test Date Status JAMILA QUIJANO 04/28/2024 16:03:30 Final Standing order for pt/inr. < br/>Please draw pt/inr every 1 to 4 weeks as requested
Results to [facility]

Warfarin Therapy
INR: 2.0-3.0 conventional anticoagulation
INR: 2.5-3.5 high intensity anticoagulation Observation Date Value Abnormality Reference (Units ) Status PT 04/28/2024 16:03:30 37.3 Above high normal 11 .6-15.2 (seconds) Final INR 04/28/2024 16:03:30 3.7 Above high normal 0. 8-1.2 Final Performing Location [facility] [place] [address]
--- OUTSIDE RECORDS SUMMARY | 2024-06-15 06:50 | External Medical Summary | Summary of Care ---
Author Name Unknown Organization [facility] Address [address] [facility] [address] Phone [phone] Care Team Providers Care Devulcanizer Charger Name Role Phone Mir Street MD Primary Care Provider [phone]- [phone] Reason for Visit * Reason Comments Dosage Adjustment Via Phone (anticoag Cl inic) Encounter Details Date Type Department Care Team (Late st Contact Info) Description 06/01/2024 6:15 AM EST Anticoagulation Centralized Clinical Pharmacy Services, Roman Denis [address] [place] [address] [place] [address] [place] [address] skilled nursing current use of anticoagulant therapy*; S/P aortic valve replacement Allergies Active Allergy Reactions Criticality Noted Date Comments Cat Dander Itching 09/27/2015 Itching eyes documented as of this encounter (statuses as of 06/01/2024) Medications QUEtiapine Fumarate 300 MG Oral Tablet Take 1 Tablet by mouth at bedtime. Active amoxicillin (AMOXIL) 500 MG CapsuleIndications :Chronic thoracic aortic dissection (HCC) TAKE 4 CAPSULES BY MOUTH 1 HOUR BEFORE PROCEDURE. 28 Cap 09/15/19 18 Active Melatonin 5 MG Tablet Take 1 Capsule by mouth at bedtime. Active albuterol HFA (VENTOLIN HFA) 108 (90 BASE) MCG/ACT inhalerIndications :COPD, group B, by GOLD 2013 classification ([facility]) Inhale 2 Puffs by mouth every 4 hours as needed for Shortness of Breath or Wheezing. 1 Inhaler 1 03/17/20 19 Active hydroCHLOROthiazid e 25 MG Oral Tablet (Hydrodiuril)Indic ations:S/P aortic valve replacement TAKE 1 TABLET BY MOUTH ONCE TO TWICE A WEEK NEEDED FOR FLUID RETENTION 20 Tablet 3 12/09/19 23 Active Metoprolol Succinate ER 50 MG Oral Tablet Extended Release 24 Hour (toPROL XL)Indications:HTN , goal below 140/90,PAF (paroxysmal atrial fibrillation) ([facility]) TAKE 1 TABLET BY MOUTH IN THE MORNING 90 Tablet 3 07/20/19 24 Active Zoster Vac Recomb Adjuvanted 50 MCG/0.5ML Intramuscular Suspension Reconstituted (Shingrix)Indicati ons:Need for vaccination for zoster Inject 0.5 mL into a large muscle now and repeat dose in 60 to 180 days 1 Each 1 09/07/19 24 Active Additional Information Patient not taking.Reported on 04/21/2024 levETIRAcetam 500 MG Oral Tablet (Keppra) TAKE 5 TABLETS BY MOUTH ONCE DAILY 450 Tablet 1 11/04/19 24 Active Additional Information Patient taking differently: TAKE 4 TABLETS BY MOUTH ONCE DAILY, Reported on 12/15/2023 Tamsulosin HCl 0.4 MG Oral Capsule (Flomax)Indication s:Acute urinary retention Take 1 capsule by mouth once daily 90 Capsule 2 12/02/19 24 Active Warfarin Sodium 2.5 MG Oral Tablet (Coumadin)Indicati ons:PAF (paroxysmal atrial fibrillation) ([facility]) TAKE 1/2 (ONE-HALF) TO 1 TABLET BY MOUTH ONCE DAILY DIRECTED BY ANTI COAG CLINIC 90 Tablet 3 12/09/19 24 Active Finasteride 5 MG Oral Tablet (Proscar)Indicatio ns:Acute urinary retention Take 1 tablet by mouth once daily 90 Tablet 3 02/11/20 24 Active Losartan Potassium 25 MG Oral Tablet (Cozaar) Take 1 Tablet by mouth in the morning. Active Cefuroxime Axetil 500 MG Oral Tablet (Ceftin)Indication s:Bronchitis, complicated Take 1 Tablet by mouth in the morning and 1 Tablet before bedtime. 20 Tablet 04/21/20 24 Active documented as of this encounter (statuses as of 06/01/2024) Active Problems Problem Noted Date Diagnosed Date Prediabetes 01/25/2024 Overview: Per Prediabetes protocol Stage 3a chronic kidney disease 04/23/2020 Overview: Per CKD protocol - Per CKD protocol PAF (paroxysmal atrial fibrillation) 03/17/2019 HTN, goal below 140/90 10/13/2018 Unspecified mood (affective) disorder 09/14/2017 BPH with obstruction/lower urinary tract symptom s 09/14/2017 History of nonmelanoma skin cancer 05/25/2017 Overview (05/25/2017): Hx of BCC on left upper chest - 2014 COPD, group B, by GOLD 2013 classification 01/19 Mixed restrictive and obstructive lung disease 1 Overview (06/07/2014): Benefits from [employer]. 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 current use of anticoagulant therapy 0 06/19/2003 Overview (03/16/2017): ICD-10 update of inactive term AORTIC DISSECTION W/ AORTIC ROOT CONDUIT REPLACE MENT 06/18/2002 S/P aortic valve replacement documented as of this encounter (statuses as of 06/01/2024) Resolved Problems Problem Noted Date Diagnosed Date Resolved Date Kidney disease, chronic, sta ge III (GFR 30-59 ml/min) 04/25/2019 04/26/2020 Overview: Per CKD protocol CASTANON (dyspnea on exertion) 01/19/2017 BPH (benign prostatic hypert rophy) with urinary retention 07/29/2016 09/14/2017 Alcohol abuse 07/23/2016 03/17/2019 Overview (07/23/2016): 2/ 1.5L whiskey/wk History of basal cell carcinoma 05/15/2016 05/25/2017 BCC (basal cell carcinoma of skin) 10/17/2014 05/25/2017 Neoplasm of uncertain behavior of skin 10/11/2014 09/14/2017 Pilar cyst 10/11/2014 09/14/2017 Elevated IgE level 06/14/2014 8 Routine general medical exam ination at a health care facility 03/13/2014 09/14/2017 Overview (07/31/2016): Needs Zoster (insurance cost) ] 08/01 [facility] hyperdynamic >70 EF, +Aortic valve replacement 02/26 PFT:ulmonary function testing revealed a mixed pattern of mild restriction and moderate airflow obstruction. There was significant improvement in FEV1 measured following bronchodilator administration. Diffusion capacity uncorrected for hemoglobin concentration was moderately reduced. Given the clinical diagnosis of COPD, this patient would have moderate disease by GOLD (Global Initiate for Chronic Obstructive Lung Disease) based on post-bronchodilator FEV1 percent predicted. However, COPD would not explain the restriction. Accessory skin tags 03/13/2014 09/15/19 18 Itchy eyes 03/13/2014 09/14/2017 Physical deconditioning 2014 04/07/2017 Atrial flutter 07/06/2012 03/17/2019 ADVANCE DIRECTIVE INFORMATION 12/30/2004 09/14/2017 Overview (12/30/2004): No, Advance Directive brochure given to patient at prior appointment. Aortic valve disorder 12/13/20012018 Anticoagulation management encounter 12/13/2001 03/15/2018 Major depressive disorder Overview (04/07/2017): ICD-10 update of inactive term Screening for prostate cancer 08/23/2008 Overview (08/23/2008): Resolved per Screening Diagnosis Protocol #6 documented as of this encounter (statuses as of 06/01/2024) Immunizations Name Administration Dates Next Due Pneumococcal Conjugate Vacc, 13 Valent (Prevnar) 09/27/2015 Pneumococcal Polysaccharide PPV23 (Pneumovax) 04/05/2014 Season Influenza, Quad, PF, Adjuvanted, 65+ Yrs, IM (FLUAD) 04/04/2020 Seasonal Influenza Vac., MDV , IM, 0.5 mL (Fluzone) 03/13/2014,03/15/2013,04/05/2012,03/11,04/28/2008,05/04/2007,06/12/2006 Seasonal Influenza, PF, 6 M & above, IM , (FluLaval or Fluzone) 03/17/2019,03/15/2018,03/16/2017 Seasonal Influenza, Quadriva lent Hd (Fluzone Hd) 06/24/2023,03/11/2022,05/21/2021 Seasonal Influenza, Quadriva lent, No Preserve, IM 04/09/2015 TDAP, Age 7 and older, IM (Adacel) 03/11/2011 documented as of this encounter Social History Tobacco Use Types Packs/Day Years Used Date Smoking Tobacco: Former Cigarettes 1 28 0 10/01/1971 - 10/01/1999 Smokeless Tobacco: Never Alcohol Use Standard Drinks/Week Comments Yes 0 (1 standard drink = 0.6 oz pur e alcohol) 08/01 1.5L whiskey/wk PHQ-2 Answer Date Recorded PHQ Adult Total Score 0 09/07/2023 Sex and Gender Information Value Date Recorded Sex Assigned at Not on file Legal Sex Male 7:21 AM EST Gender Identity Not on file Sexual Orientation Not on file 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 PT/INR results, Coumadin dose instructions, and next PT/INR date communicated as noted by Pharmacist: Yes BIANKA ORTIZ CPhT 06/01/2024, 10:54 AM * Mellisa Matt [facility] - 06/01/2024 10:25 AM EST Images from the original note were not included. Coumadin Clinic (region specific) Objective Current Warfarin Dose As of 06/01/2024 Warfarin maintenance plan: 1.25 mg (2.5 mg x 0.5) every Tue; 2.5 mg (5 mg x 0.5) all other days INR Result As of 06/01/2024 INR goal: 2.5-3.5 INR used for dosin.3 (05/31/2024) Assessment & Plan Warfarin Plan As of 06/01/2024 Full warfarin instructions: 06/01: 1.25 mg; Otherwise 1.25 mg every Tue, Julieth; 2.5 mg all other days Next INR check: 06/28/2024 Repeat PT/INR in 4 week(s) Weekly dose: decreased Additional Dosing Information: Description Saman Renee to contact patient with dose instructions as noted. Mellisa Matt RPh 06/01/2024, 10:25 AM documented in this encounter Plan of Treatment Upcoming Encounters Date Type Department Care Team (Late st Contact Info) Description 06/28/2024 3:50 PM EST Laboratory Laboratory [facility] [address] [facility] [place] [phone] [place] [facility] [address] [place] [address] [address] 06/29/2024 6:15 AM EST Anticoagulation Centralized Clinical Pharmacy Services, Roman Denis [address] [place] [address] [place] [address] [place] [address] 07/11/2024 3:00 PM EST Office Visit Neurology [facility] [place] [address] [place] [address] Cesar Love MD [address] [place] [address] 07/14/2024 3:30 PM EST Office Visit Cardiology, [facility] [address] [place] [address] Regis Scott MD [address] [place] [address] 09/12/2024 1:00 PM EDT Office Visit Family Practice, [place] [address] [place] [phone] MD [address] [place] [address] Health Maintenance Due Date Last Done Comments Zoster Vaccines (1 of 2) 1999 CKD PHOS USE SMARTSET 37478 10/10/2000 10/11/1999, 0 10/04/1999 Adult Wellness Visit 2015 DTap/Tdap Vaccines (2 - Td or Tdap) 03/11/2021 03/11/2011 COVID-19 Vaccine ( season) 2024 03/22/2021, 08/31/2020, 08/10/2020 Influenza Vaccine (FLU shot) (#1) 2024 06/24/2023, 03/11/2022, 05/21/2021, Additional history exists CKD HGB USE SMARTSET 70394 07/13/202407/13, 07/13/2023, 09/24/2022, Additional history exists GFR 08/29/2024 03/01/2024, 12/14, 07/06/2023, Additional history exists Depression Screening 09/06/2024 09/07/2023 Albumin/Creatinine Ratio 03/01/2025 03/01/2024 HbA1c 03/01/2025 03/01/2024, 12/14, 08/17/2020, Additional history exists Colonoscopy Discontinued 06/25/2007 Pneumococcal Vaccine: 65+ Years Completed 09/27/2015, 04/05/2014, 01/17/2003 Cologuard Discontinued 09/13/2018 Colorectal Cancer Screening Discontinued Alpha-1 Antitrypsin Completed 03/01/2024 Fecal Occult Blood Test Discontinued HPV (Gardasil) Vaccine Aged Out No lo nger eligible based on patient's age to complete this topic Hepatitis B Vaccine Aged Out No longe r eligible based on patient's age to complete this topic MENINGOCOCCAL (MENACTRA/MENVEO) Aged Out No longer eligible based on patient's age to complete this topic Sigmoidoscopy Discontinued documented as of this encounter Medical Devices Not on filedocumented as of this encounter Visit Diagnoses Diagnosis skilled nursing current use of anticoagulant therapy- Primary S/P aortic valve replacement Heart valve replaced by other means documented in this encounter Care Teams Devulcanizer Charger Relationship Specialty Start Date End Date Mir Street MD [address] [place] [address] PCP - General Family Medicine 07/31/16 documented as of this encounter
--- OUTSIDE RECORDS SUMMARY | 2024-06-15 06:50 | External Medical Summary | Summary of Care ---
Author Name Unknown Organization [facility] Address [address] [place] [address] Phone [phone] Care Team Providers Care Saturator Tender Name Role Phone Mir Street MD Primary Care Provider +1- [phone] Reason for Visit * Reason Comments Acute Cold with cough. Pt has had an occasional cough and chest congestion since Thursday evening. Pt has been producing yellow mucus with cough. Has not taken any OTC meds to help. Encounter Details Date Type Department Care Team (Late st Contact Info) Description 04/21/2024 10:20 AM EST Office Visit [address] [phone] MD [address] [place], [place] [id number] Bronchitis, complicated* Allergies Active Allergy Reactions Criticality Noted Date Comments Cat Dander Itching 09/27/2015 Itching eyes documented as of this encounter (statuses as of 05/09/2024) Medications QUEtiapine Fumarate 300 MG Oral Tablet [...] :COPD, group B, by GOLD 2013 classification ([facility]) Inhale 2 Puffs by mouth every 4 [...] , goal below 140/90,PAF (paroxysmal atrial fibrillation) ([facility]) TAKE 1 TABLET BY MOUTH IN THE [...] Oral Tablet (Coumadin)Indicati ons:PAF (paroxysmal atrial fibrillation) ([facility]) TAKE 1/2 (ONE-HALF) TO 1 TABLET BY [...] as of this encounter (statuses as of 05/09/2024) Active Problems Problem Noted Date Diagnosed Date [...] 12/13/2012 Overview (05/18/2014): Sees Dr Love--on Keppra nursing home current use of anticoagulant therapy 0 06/19/2003 Overview (03/16/2017): ICD-10 update of inactive term AORTIC DISSECTION W/ AORTIC ROOT CONDUIT REPLACE MENT 06/18/2002 S/P aortic valve replacement documented as of this encounter (statuses as of 05/09/2024) Resolved Problems Problem Noted Date Diagnosed Date [...] Needs Zoster (insurance cost) ] 08/01 [facility]TE [facility] hyperdynamic >70 EF, +Aortic valve [...] as of this encounter (statuses as of 05/09/2024) Immunizations Name Administration Dates Next Due Pneumococcal [...] file Not on file Not on file 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 Not on file Not on file Not on stefan e documented as of this encounter Last Filed Vital Signs Vital Sign Reading Time Taken Comments Blood Pressure 116/68 04/21/2024 10:17 AM EST Pulse 94 04/21/2024 10:17 AM EST Temperature 36.1 C (97 F) 04/21/2024 10:17 AM EST Respiratory Rate 16 04/21/2024 10:17 AM EST Oxygen Saturation 96% 04/21/2024 10:17 AM EST Inhaled Oxygen Concentration - - Weight 93.4 kg (206 lb) 04/21/2024 10:17 AM EST Height 175 cm (5' 8.89") 04/21/2024 10:17 AM EST Body Mass Index 30.52 04/21/2024 10:17 AM EST documented in this encounter Progress Notes * Mir Street MD - 05/09/2024 10:04 PM EST Subjective: Cesar White is a 74 year old male here today for Chief Complaint Patient presents with Acute Cold with cough. Pt has had an occasional cough and chest congestion since Thursday evening. Pt has been producing yellow mucus with cough. Has not taken any OTC meds to help. Pt presents with resp symptoms as above. No fever or resp distress. Cough is productive of discolored sputum. Past Medical History: Diagnosis Date Accessory skin tags 03/13/2014 Alcohol abuse 07/23/201608/01 1.5L whiskey/wk Anemia 03/06/2012 Post esoph tear/bleeding. Caused by hiccups. Resolved. AORTIC DISSECTION W/ AORTIC ROOT CONDUIT REPLACEMENT 06/18/2002 BCC (basal cell carcinoma of skin) 10/17/2014 COPD, group B, by GOLD 2013 classification ([facility]) 01/19/2017 Depressive disorder, not elsewhere classified Epistaxis 07/22/2016 hosp[facility] INR 4 Itchy eyes 03/13/2014 S/P aortic valve replacement 1999 Past Surgical History: Procedure Laterality Date COLORECTAL CANCER SCREEN; NOT AT RISK 06/2007 normal LAPAROSCOPY; CHOLECYSTECTOMY 10/04/2008 [facility] - Dr. Arias - laparoscopic cholecystectomy 10/04/2008 REPAIR INITIAL INGUINAL HERNIA REDUCIBLE AGE 5 OR MORE 10/07/2010 10/07/2010- [facility] - Dr. Arias REPLACEMENT AORTIC VALVE,NON-CORONARY SINUS 10/01/99 Aortic Dissection Tara/Behzad Review of patient's allergies indicates: Allergen Reactions Cats [Cat Dander] Itching Itching eyes Current Outpatient Medications Medication Sig Dispense Refill QUEtiapine Fumarate 300 MG Oral Tablet Take 1 Tablet by mouth at bedtime. amoxicillin (AMOXIL) 500 MG Capsule TAKE 4 CAPSULES BY MOUTH 1 HOUR BEFORE PROCEDURE. 28 Cap 0 albuterol HFA (VENTOLIN HFA) 108 (90 BASE) MCG/ACT inhaler Inhale 2 Puffs by mouth every 4 hours asneeded for Shortness of Breath or Wheezing. 1 Inhaler 1 Metoprolol Succinate ER 50 MG Oral Tablet Extended Release 24 Hour (toPROL XL) TAKE 1 TABLET BY MOUTH IN THE MORNING 90 Tablet 3 levETIRAcetam 500 MG Oral Tablet (Keppra) TAKE 5 TABLETS BY MOUTH ONCE DAILY (Patient taking differently: TAKE 4 TABLETS BY MOUTH ONCE DAILY) 450 Tablet 1 Tamsulosin HCl 0.4 MG Oral Capsule (Flomax) Take 1 capsule by mouth once daily 90 Capsule 2 Warfarin Sodium 2.5 MG Oral Tablet (Coumadin) TAKE 1/2 (ONE-HALF) TO 1 TABLET BY MOUTH ONCE DAILY DIRECTED BY ANTI COAG CLINIC 90 Tablet 3 Finasteride 5 MG Oral Tablet (Proscar) Take 1 tablet by mouth once daily 90 Tablet 3 Losartan Potassium 25 MG Oral Tablet (Cozaar) Take 1 Tablet by mouth in the morning. Cefuroxime Axetil 500 MG Oral Tablet (Ceftin) Take 1 Tablet by mouth in the morning and 1 Tablet before bedtime. 20 Tablet 0 Melatonin 5 MG Tablet Take 1 Capsule by mouth at bedtime. hydroCHLOROthiazide 25 MG Oral Tablet (Hydrodiuril) TAKE 1 TABLET BY MOUTH ONCE TO TWICE A WEEK NEEDED FOR FLUID RETENTION 20 Tablet 3 Zoster Vac Recomb Adjuvanted 50 MCG/0.5ML Intramuscular Suspension Reconstituted (Shingrix) Inject 0.5 mL into a large muscle now and repeat dose in 60 to 180 days (Patient not taking: Reported on 04/21/2024) 1 Each 1 No current facility-administered medications for this visit. Objective: BP 116/68 | Pulse 94 | Temp 97 F (36.1 C) (Tympanic) | Resp 16 | Ht 5' 8.89" (1.75 m) | Wt 206 lb (93.4 kg) | SpO2 96% | BMI 30.52 kg/m | BSA 2.13 m GEN: NAD HEENT: Benign NECK: Supple with no LAD, TM, JVD CHEST: CTA B - no wheeze, rhonchi, rales. CV: RRR ABD: Soft, NT/ND, No HSM, NABS EXT: No c,c,e Assessment and Plan: Bronchitis, complicated (Primary) - Cefuroxime Axetil 500 MG Oral Tablet (Ceftin); Take 1 Tablet by mouth in the morning and 1 Tabletbefore bedtime. -call for new or worsening symptoms. 24 min with pt and chart review. Mir Street MD documented in this encounter Nursing Notes * Loraine Rivero, MED ASSIST - 04/21/2024 10:24 AM EST The patient has been properly identified by confirmation of name and date of . Chief Complaint Patient presents with Acute Cold with cough. Pt has had an occasional cough and chest congestion since Thursday evening. Pt has been producing yellow mucus with cough. Has not taken any OTC meds to help. documented in this encounter Plan of Treatment Upcoming Encounters Date Type Department Care Team (Late st Contact Info) Description 05/26/2024 3:50 PM EST Laboratory Laboratory [facility] [address] [facility] [place] [phone] [place], Lab [facility] [address] [facility] [place] [address] 05/27/2024 6:15 AM EST Anticoagulation Centralized Clinical Pharmacy Services, [address] [place] [address] [place] [address] 07/11/2024 3:00 PM EST Office Visit Neurology [facility] [address] [facility] [place] [address] Cesar Love MD [address] [facility] [place] [address] 07/14/2024 3:30 PM EST Office Visit Cardiology, [facility] [address] [place] [address] Regis Scott MD [address] [place] [address] 09/12/2024 1:00 PM EDT Office Visit [facility] [address] [facility] [place] [phone] MD [address] [facility] [place] [address] Health Maintenance Due Date Last Done Comments Zoster Vaccines (1 of 2) 1999 CKD PHOS USE SMARTSET 67947 10/10/2000 10/11/1999, 0 10/04/1999 Adult Wellness Visit 2015 DTap/Tdap Vaccines (2 - Td or Tdap) 03/11/2021 03/11/2011 COVID-19 Vaccine ( season) 2024 03/22/2021, 08/31/2020, 08/10/2020 Influenza Vaccine (FLU shot) (#1) 2024 06/24/2023, 03/11/2022, 05/21/2021, Additional history exists CKD HGB USE SMARTSET 54106 07/13/202407/13, 07/13/2023, 09/24/2022, Additional history exists GFR 08/29/2024 03/01/2024, 0707/2023, 07/06/2023, Additional history exists Depression Screening 09/06/2024 09/07/2023 Albumin/Creatinine Ratio 03/01/2025 03/01/2024 HbA1c 03/01/2025 03/01/2024, 0711/2023, 08/17/2020, Additional history exists Colonoscopy Discontinued 06/25/2007 [...] as of this encounter Visit Diagnoses Diagnosis Bronchitis, complicated- Primary Bronchitis, not specified as acute or chronic documented in this encounter Care Teams Saturator Tender Relationship Specialty Start Date End Date Mir Street MD [address] [place] [address] PCP - General Family Medicine 07/31/16 documented as of this encounter
--- OUTSIDE RECORDS SUMMARY | 2024-06-15 06:50 | External Medical Summary | Summary of Care ---
Author Name Unknown Organization [facility] Address [address] [place] [address] Phone [phone] Care Team Providers Care Income Tax Expert Name Role Phone Mir Street MD Primary Care Provider +1- [phone] Reason for Visit * Reason Onset Date Comments Advice 06/13/2024 Encounter Details Date Type Department Care Team (Late st Contact Info) Description [facility]/13[facility] [address] [facility] [place] [address] MD [address] [place] [address] Advice Allergies Active Allergy Reactions Criticality Noted Date Comments Cat Dander Itching 09/27/2015 Itching eyes documented as of this encounter (statuses as of 06/13/2024) Medications QUEtiapine Fumarate 300 MG Oral Tablet [...] group B, by GOLD 2013 classification ([facility]) Inhale 2 Puffs by mouth every 4 [...] , goal below 140/90,PAF (paroxysmal atrial fibrillation) (HCC) TAKE 1 TABLET BY MOUTH IN THE [...] Oral Tablet (Coumadin)Indicati ons:PAF (paroxysmal atrial fibrillation) (HCC) TAKE 1/2 (ONE-HALF) TO 1 TABLET BY [...] as of this encounter (statuses as of 06/13/2024) Active Problems Problem Noted Date Diagnosed Date [...] 12/13/2012 Overview (05/18/2014): Sees Dr Love--on Keppra half-way current use of anticoagulant therapy 0 06/19/2003 Overview (03/16/2017): ICD-10 update of inactive term AORTIC DISSECTION W/ AORTIC ROOT CONDUIT REPLACE MENT 06/18/2002 S/P aortic valve replacement documented as of this encounter (statuses as of 06/13/2024) Resolved Problems Problem Noted Date Diagnosed Date Resolved Date Kidney disease, chronic, sta ge III (GFR 30-59 ml/min) 04/25/2019 04/26/2020 Overview: Per CKD protocol CASTANON (dyspnea on exertion) 01/19/2017 BPH (benign prostatic hypert rophy) with urinary retention 07/29/2016 09/14/2017 Alcohol abuse 07/23/2016 03/17/2019 Overview (07/23/2016): 2 1.5L whiskey/wk History of basal cell carcinoma 05/15/2016 05/25/2017 BCC (basal cell carcinoma of skin) 10/17/2014 05/25/2017 Neoplasm of uncertain behavior of skin 10/11/2014 09/14/2017 Pilar cyst 10/11/2014 09/14/2017 Elevated IgE level 06/14/2014 8 Routine general medical exam ination at a health care facility 03/13/2014 09/14/2017 Overview (07/31/2016): Needs Zoster (insurance cost) ] 08/01 [facility] hyperdynamic >70 EF, +Aortic valve replacement 02/26 [...] Itchy eyes 03/13/2014 09/14/2017 Physical deconditioning 2014 04/0 07/2017 Atrial flutter 07/06/2012 03/17/2019 ADVANCE DIRECTIVE INFORMATION 12/30/2004 09/14/2017 Overview (12/30/2004): No, Advance Directive brochure given to patient at prior appointment. 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 Not on file Not on file Not on stefan e documented as of this encounter Miscellaneous Notes * Telephone Encounter - Rosamaria Duncan MD - 06/13/2024 12:51 PM EST This is day 3 of illness Throwing up Drank 2 glasses of water in 2 days Generally isolated at home Lives w and she feels well Sleeping a lot Unsure if fever Denies chills Denies abd pain, but did have some GERD last night He is able to walk to and from bed to bathroom Advised clear liquids and if tolerates can slowly advance to simple solids If still vomiting tomorrow - will need to go to ER tomorrow Verbalized understanding and agreement with this plan, answered all questions. * Telephone Encounter - Delfina Matt OSA - 06/13/2024 9:45 AM EST Patient's David consider bout not eating ( all day yesterday) only drinking water hasn't been feeling good since Thursday. Please be advised, Thank You documented in this encounter Plan of Treatment Upcoming Encounters Date Type Department Care Team (Late st Contact Info) Description 06/28/2024 3:50 PM EST Laboratory Laboratory [facility] [address] [place] [phone] [facility] 200 [facility] [place] [address] 06/29/2024 6:15 AM EST Anticoagulation Centralized Clinical Pharmacy Services, Roman Denis [address] [place] [address] [place] [address] [facility], [address] [place] [address] 07/11/2024 3:00 PM EST Office Visit Neurology [facility] [address] [place] [address] Cesar Love MD [address] [place] [address] 07/14/2024 3:30 PM EST Office Visit Cardiology, [facility] [address] [place] [address] Regis Scott MD [address] [place] [address] 09/12/2024 1:00 PM EDT Office [facility], [place] [facility] [place] [address] MD [address] [facility] [place] [address] Health Maintenance Due Date Last Done Comments Zoster Vaccines (1 of 2) 1999 CKD PHOS USE SMARTSET 66523 10/10/2000 10/11/1999, 0 10/04/1999 Adult Wellness Visit 2015 DTap/Tdap Vaccines (2 - Td or Tdap) 03/11/2021 03/11/2011 COVID-19 Vaccine ( season) 2024 03/22/2021, 08/31/2020, 08/10/2020 Influenza Vaccine (FLU shot) (#1) 2024 06/24/2023, 03/11/2022, 05/21/2021, Additional history exists CKD HGB USE SMARTSET 90010 07/13/202407/13, 07/13/2023, 09/24/2022, Additional history exists GFR 08/29/2024 03/01/2024, 12/14, 07/06/2023, Additional history exists Depression Screening 09/06/2024 09/07/2023 Albumin/Creatinine Ratio 03/01/2025 03/01/2024 HbA1c 03/01/2025 03/01/2024, 12/14, 08/17/2020, Additional history exists Colonoscopy Discontinued 06/25/2007 Pneumococcal Vaccine: 50+ Years Completed 09/27/2015, 04/05/2014, 01/17/2003 Cologuard Discontinued [...] Not on filedocumented as of this encounter Care Teams Income Tax Expert Relationship Specialty Start Date End Date Mir Street MD PCP - General Family Medicine 07/31/16 documented as of this encounter
--- OUTSIDE RECORDS SUMMARY | 2024-06-15 06:50 | External Medical Summary | Summary of Care ---
Author Name Unknown Organization [facility] Address [address] [place] [address] Phone [phone] Care Team Providers Care Cable Reeler Name Role Phone Mir Street MD Primary Care Provider +1- [phone] Reason for Visit * Reason Comments Outpatient Testing Encounter Details Date Type Department Care Team (Latest Contact Info) Description 05/31/2024 3:50 PM EST Laboratory Laboratory [facility] [address] [place] [phone] [place], [address] [place] [address] Anticoagulation management encounter Allergies Active Allergy Reactions Criticality Noted Date Comments Cat Dander Itching 09/27/2015 Itching eyes documented as of this encounter (statuses as of 05/31/2024) Medications QUEtiapine Fumarate 300 MG Oral Tablet [...] :COPD, group B, by GOLD 2013 classification ([facility]) Inhale 2 Puffs by mouth every 4 hours as needed for Shortness of Breath or Wheezing. 1 Inhaler 1 10/03/20 19 Active hydroCHLOROthiazid e 25 MG Oral [...] as of this encounter (statuses as of 05/31/2024) Active Problems Problem Noted Date Diagnosed Date [...] Seizures 12/13/2012 Overview (05/18/2014): Sees Dr Love--on Allanpp intermediate card tender current use of anticoagulant therapy 0 06/19/2003 Overview (03/16/2017): ICD-10 update of inactive term AORTIC DISSECTION W/ AORTIC ROOT CONDUIT REPLACE MENT 06/18/2002 S/P aortic valve replacement documented as of this encounter (statuses as of 05/31/2024) Resolved Problems Problem Noted Date Diagnosed Date Resolved Date Kidney disease, chronic, sta ge III (GFR 30-59 ml/min) 04/25/2019 04/26/2020 Overview: Per CKD protocol CASTANON (dyspnea on exertion) 01/19/2017 BPH (benign prostatic hypert rophy) with urinary retention 07/29/2016 09/14/2017 Alcohol abuse 07/23/2016 03/17/2019 Overview (07/23/2016): 08/01 1.5L whiskey/wk History of basal cell carcinoma 05/15/2016 05/25/2017 BCC (basal cell carcinoma of skin) 10/17/2014 05/25/2017 Neoplasm of uncertain behavior of skin 10/11/2014 09/14/2017 Pilar cyst 10/11/2014 09/14/2017 Elevated IgE level 06/14/2014 04/02/201 8 Routine general medical exam ination at a health care facility 03/13/2014 09/14/2017 Overview (07/31/2016): Needs Zoster (insurance cost) ] 08/01 [facility] hyperdynamic >70 EF, +Aortic valve replacement 02/26 [...] as of this encounter (statuses as of 05/31/2024) Immunizations Name Administration Dates Next Due Pneumococcal [...] file Not on file Not on file 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 file Not on file Not on stefan e documented as of this encounter Plan of Treatment Upcoming Encounters Date Type Department Care Team (Late st Contact Info) Description 06/01/2024 6:15 AM EST Anticoagulation Centralized Clinical Pharmacy Services, [facility] Adeel [address] [place] [address] [place] [address] [place] [address] 07/11/2024 3:00 PM EST Office Visit Neurology [facility] [address] [place] [address] Cesar Love MD 200 [facility] [place] [address] 07/14/2024 3:30 PM EST Office Visit Cardiology, [facility] [address] [place] [address] Regis Scott MD [address] [place] [address] 09/12/2024 1:00 PM EDT Office Visit [facility], Marlene Salazar [address] [place] [address] MD [address] [place] [place] [address] Pending Results Name Type Priority Associated Diagnoses Date /Time PT INR Lab Routine Anticoagulation management encounter 05/31/2024 4:05 PM EST Health Maintenance Due Date Last Done Comments Zoster Vaccines (1 of 2) 1999 CKD PHOS USE SMARTSET 23262 10/10/2000 10/11/1999, 0 10/04/1999 Adult Wellness Visit 2015 DTap/Tdap Vaccines (2 - Td or Tdap) 03/11/2021 03/11/2011 COVID-19 Vaccine (4 - season) 2024 03/22/2021, 08/31/2020, 08/10/2020 Influenza Vaccine (FLU shot) (#1) 2024 06/24/2023, 03/11/2022, 05/21/2021, Additional history exists CKD HGB USE SMARTSET 64106 07/13/202407/13, 07/13/2023, 09/24/2022, Additional history exists GFR [...] as of this encounter Visit Diagnoses Diagnosis Anticoagulation management encounter Encounter for therapeutic drug monitoring documented in this encounter Care Teams Cable Reeler Relationship Specialty Start Date End Date Mir Street MD [address] [place] [address] PCP - General Family Medicine 07/31/16 documented as of this encounter
--- OUTSIDE RECORDS SUMMARY | 2024-06-15 06:50 | External Medical Summary | Summary of Care ---
Author Name Unknown Organization [facility] Address [address] [place] [address] Phone [phone] Care Team Providers Care Tare Worker Name Role Phone Mir Street MD Primary Care Provider +1- [phone] Reason for Visit * Reason Comments Outpatient Testing Encounter Details Date Type Department Care Team (Late st Contact Info) Description 04/28/2024 3:50 PM EST Laboratory Laboratory [facility] [address] [facility] [place] [place] [phone] [facility] Lab [address]en[address] [place] [address] S/P aortic valve replacement; Anticoagulation management encounter Allergies Active Allergy Reactions Criticality Noted Date Comments Cat Dander Itching 09/27/2015 Itching eyes documented as of this encounter (statuses as of 04/28/2024) Medications QUEtiapine Fumarate 300 MG Oral Tablet [...] :COPD, group B, by GOLD 2013 classification ([facility]) Inhale 2 Puffs by mouth every 4 [...] , goal below 140/90,PAF (paroxysmal atrial fibrillation) ([facility]) TAKE 1 TABLET BY MOUTH IN THE [...] Oral Tablet (Coumadin)Indicati ons:PAF (paroxysmal atrial fibrillation) ([facility]) TAKE 1/2 (ONE-HALF) TO 1 TABLET BY [...] as of this encounter (statuses as of 04/28/2024) Active Problems Problem Noted Date Diagnosed Date [...] Seizures 12/13/2012 Overview (05/18/2014): Sees Dr Love--on Liz continuous churn buttermaker current use of anticoagulant therapy 0 06/19/2003 Overview (03/16/2017): ICD-10 update of inactive term AORTIC DISSECTION W/ AORTIC ROOT CONDUIT REPLACE MENT 06/18/2002 S/P aortic valve replacement documented as of this encounter (statuses as of 04/28/2024) Resolved Problems Problem Noted Date Diagnosed Date [...] Needs Zoster (insurance cost) ] 08/01 [facility] hyperdynamic >70 EF, +Aortic valve replacement 02/26 [...] as of this encounter (statuses as of 04/28/2024) Immunizations Name Administration Dates Next Due Pneumococcal [...] file Not on file Not on file 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 Not on file Not on file Not on stefan e documented as of this encounter Plan of Treatment Upcoming Encounters Date Type Department Care Team (Late st Contact Info) Description 04/29/2024 6:15 AM EST Anticoagulation Centralized Clinical Pharmacy Services, [facility] [place] [address] [place] [address] [place] [address] [place] [address] 07/11/2024 3:00 PM EST Office Visit Neurology [facility] 200 [facility] [place] [address] Cesar Love MD 200 [facility] [place] [address] 07/14/2024 3:30 PM EST Office Visit Cardiology, [facility] [address] [place] [address] Regis Scott MD [address] [place] [address] 09/12/2024 1:00 PM EDT Office Visit [facility] [place] [facility] [address] [place] [address] MD [address] [facility] [place] [address] Pending Results Name Type Priority Associated Diagnoses Date /Time PT INR Lab Routine S/P aortic valve replacement 04/28/2024 4:03 PM EST Health Maintenance Due Date Last Done Comments Zoster Vaccines (1 of 2) 1999 CKD PHOS USE SMARTSET 48317 10/10/2000 10/11/1999, 0 10/04/1999 Adult Wellness Visit 2015 DTap/Tdap Vaccines (2 - Td or Tdap) 03/11/2021 03/11/2011 COVID-19 Vaccine (4 - season) 2024 03/22/2021, 08/31/2020, 08/10/2020 Influenza Vaccine (FLU shot) (#1) 2024 06/24/2023, 03/11/2022, 05/21/2021, Additional history exists CKD HGB USE SMARTSET 92541 07/13/202407/13, 07/13/2023, 09/24/2022, Additional history exists GFR [...] as of this encounter Visit Diagnoses Diagnosis S/P aortic valve replacement Heart valve replaced by other means Anticoagulation management encounter Encounter for therapeutic drug monitoring documented in this encounter Care Teams Tare Worker Relationship Specialty Start Date End Date Mir Street MD [address] [place] [address] PCP - General Family Medicine 07/31/16 documented as of this encounter
--- OUTSIDE RECORDS SUMMARY | 2024-06-15 06:50 | External Medical Summary | Summary of Care ---
Author Name Unknown Organization [facility] Address [address] [facility] [address] Phone [phone] Care Team Providers Care Rolfer Name Role Phone Mir Street MD Primary Care Provider +1- [phone] Reason for Visit * Reason Comments Dosage Adjustment Via Phone (anticoag Cl inic) Encounter Details Date Type Department Care Team (Late st Contact Info) Description 04/29/2024 6:15 AM EST Anticoagulation Centralized Clinical Pharmacy Services, Roman Denis [address] [place] [address] [place] [address] [place] [address] snf current use of anticoagulant therapy*; S/P aortic valve replacement Allergies Active Allergy Reactions Criticality Noted Date Comments Cat Dander Itching 09/27/2015 Itching eyes documented as of this encounter (statuses as of 04/29/2024) Medications QUEtiapine Fumarate 300 MG Oral Tablet [...] group B, by GOLD 2013 classification ([facility]) Inhale 2 Puffs by mouth every 4 [...] goal below 140/90,PAF (paroxysmal atrial fibrillation) ([facility]) TAKE 1 TABLET BY MOUTH IN THE [...] Tablet (Coumadin)Indicati ons:PAF (paroxysmal atrial fibrillation) ([facility]) TAKE 1/2 (ONE-HALF) TO 1 TABLET BY [...] as of this encounter (statuses as of 04/29/2024) Active Problems Problem Noted Date Diagnosed Date [...] 12/13/2012 Overview (05/18/2014): Sees Dr Love--on Keppra 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 0 06/19/2003 Overview (03/16/2017): ICD-10 update of inactive term AORTIC DISSECTION W/ AORTIC ROOT CONDUIT REPLACE MENT 06/18/2002 S/P aortic valve replacement documented as of this encounter (statuses as of 04/29/2024) Resolved Problems Problem Noted Date Diagnosed Date Resolved Date Kidney disease, chronic, sta ge III (GFR 30-59 ml/min) 04/25/2019 04/26/2020 Overview: Per CKD protocol CASTANON (dyspnea on exertion) 01/19/2017 BPH (benign prostatic hypert rophy) with urinary retention 07/29/2016 09/14/2017 Alcohol abuse 07/23/2016 03/17/2019 Overview (07/23/2016): 2/17 1.5L whiskey/wk History of basal cell carcinoma 05/15/2016 05/25/2017 BCC (basal cell carcinoma of skin) 10/17/2014 05/25/2017 Neoplasm of uncertain behavior of skin 10/11/2014 09/14/2017 Pilar cyst 10/11/2014 09/14/2017 Elevated IgE level 06/14/2014 8 Routine general medical exam ination at a health care facility 03/13/2014 09/14/2017 Overview (07/31/2016): Needs Zoster (insurance cost) ] 08/01 [facility]TE [facility] hyperdynamic >70 EF, +Aortic valve replacement 02/26 [...] as of this encounter (statuses as of 04/29/2024) Immunizations Name Administration Dates Next Due Pneumococcal [...] file Not on file Not on file 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 PT/INR results, Coumadin dose instructions, and next PT/INR date communicated as noted by Pharmacist: Yes SUZY REESE CPhT 04/29/2024, 9:21 AM * Loraine Stacy [facility] - 04/29/2024 9:08 AM EST Images from the original note were not included. Coumadin Clinic (region specific) Objective Current Warfarin Dose As of 04/29/2024 Warfarin maintenance plan: 1.25 mg (2.5 mg x 0.5) every Tue; 2.5 mg (5 mg x 0.5) all other days INR Result As of 04/29/2024 INR goal: 2.5-3.5 INR used for dosin.7 (04/28/2024) Assessment & Plan Warfarin Plan As of 04/29/2024 Full warfarin instructions: 04/29: Hold; Otherwise 1.25 mg every Tue; 2.5 mg all other days Next INR check: 05/26/2024 Repeat PT/INR in 4 week(s) Weekly dose: not changed Additional Dosing Information: Description Saman Renee to contact patient with dose instructions as noted. Loraine Stacy RPh 04/29/2024, 9:08 AM documented in this encounter Plan of Treatment Upcoming Encounters Date Type Department Care Team (Late st Contact Info) Description 07/11/2024 3:00 PM EST Office Visit Neurology [facility] 200 [facility] [place] [address] Cesar Love MD 200 [facility] [place] [address] 07/14/2024 3:30 PM EST Office Visit Cardiology, [facility] [address] [place] [address] Regis Scott MD [address] [place] [address] 09/12/2024 1:00 PM EDT Office Visit Family [facility] [address] MD [address] [place] [address] Health Maintenance Due Date Last Done Comments Zoster Vaccines (1 of 2) 1999 CKD PHOS USE SMARTSET 09282 10/10/2000 10/11/1999, 0 10/04/1999 Adult Wellness Visit 2015 DTap/Tdap Vaccines (2 - Td or Tdap) 03/11/2021 03/11/2011 COVID-19 Vaccine ( season) 2024 03/22/2021, 08/31/2020, 08/10/2020 Influenza Vaccine (FLU shot) (#1) 2024 06/24/2023, 03/11/2022, 05/21/2021, Additional history exists CKD HGB USE SMARTSET 75856 07/13/202407/13, 07/13/2023, 09/24/2022, Additional history exists GFR [...] as of this encounter Visit Diagnoses Diagnosis snf current use of anticoagulant therapy- Primary S/P aortic valve replacement Heart valve replaced by other means documented in this encounter Care Teams Rolfer Relationship Specialty Start Date End Date Mir Street MD [address] [place] [address] PCP - General Family Medicine 07/31/16 documented as of this encounter
--- OUTSIDE RECORDS SUMMARY | 2024-06-15 06:50 | External Medical Summary | Summary of Care ---
Author Name Unknown Organization [facility] Address [address] [place] [address] Phone [phone] Care Team Providers Care Certified Midwife Name Role Phone Mir Street MD Primary Care Provider +1- [phone] Encounter Details Date Type Department Care Team (Late st Contact Info) Description 02/03/2024 Telephone Access Center, [place] [address] [facility] *DO NOT REMOVE THIS DEPARTMENT* [place] [address] Services, Scheduling [address] [place] [address] Allergies Active Allergy Reactions Criticality Noted Date Comments Cat Dander Itching 09/27/2015 Itching eyes documented as of this encounter (statuses as of 05/04/2024) Medications QUEtiapine Fumarate 300 MG Oral Tablet [...] :COPD, group B, by GOLD 2013 classification ([facility]) Inhale 2 Puffs by mouth every [...] CLINIC 90 Tablet 3 12/09/19 24 Active documented as of this encounter (statuses as of 05/04/2024) Active Problems Problem Noted Date Diagnosed Date [...] Seizures 12/13/2012 Overview (05/18/2014): Sees Dr Love--on [place] USP current use of anticoagulant therapy 0 06/19/2003 Overview (03/16/2017): ICD-10 update of inactive term AORTIC DISSECTION W/ AORTIC ROOT CONDUIT REPLACE MENT 06/18/2002 S/P aortic valve replacement documented as of this encounter (statuses as of 05/04/2024) Resolved Problems Problem Noted Date Diagnosed Date [...] Needs Zoster (insurance cost) ] 08/01 TTE [facility] hyperdynamic >70 EF, +Aortic valve replacement 02/26 [...] as of this encounter (statuses as of 05/04/2024) Immunizations Name Administration Dates Next Due Pneumococcal [...] file Not on file Not on file 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 [address] [place] [phone] [place] [address] [place] [address] 05/27/2024 6:15 AM EST Anticoagulation Centralized Clinical Pharmacy Services, [facility] Adeel [address] [place] [address] [place] [address] [facility], [address] [place] [address] 07/11/2024 3:00 PM EST Office Visit Neurology [facility] 200 [facility] [place] [address] Cesar Love MD 200 [facility] [place] [address] 07/14/2024 3:30 PM EST Office Visit Cardiology, [facility] [address] [place] [address] Regis Scott MD [address] [place] [address] 09/12/2024 1:00 PM EDT [facility] [address] [place] [phone] [address] MD [address] [place] [address] Health Maintenance Due Date Last Done Comments Zoster Vaccines (1 of 2) 1999 CKD PHOS USE SMARTSET 14816 10/10/2000 10/11/1999, 0 10/04/1999 Adult Wellness Visit 2015 DTap/Tdap Vaccines (2 - Td or Tdap) 03/11/2021 03/11/2011 COVID-19 Vaccine ( season) 2024 03/22/2021, 08/31/2020, 08/10/2020 Influenza Vaccine (FLU shot) (#1) 2024 06/24/2023, 03/11/2022, 05/21/2021, Additional history exists CKD HGB USE SMARTSET 96697 07/13/202407/13, 07/13/2023, 09/24/2022, Additional history exists GFR [...] filedocumented as of this encounter Care Teams Certified Midwife Relationship Specialty Start Date End Date Mir Street MD [address] [place] [address] PCP - General Family Medicine 07/31/16 documented as of this encounter
--- OUTSIDE RECORDS SUMMARY | 2024-06-15 06:51 | External Medical Summary ---
Author Name Unknown Address Unknown Organization [id number]:LABORATORY [facility] [place] - [address] [facility] [address] Laboratory Report Ordering Provider Test Date Status JAMILA QUIJANO 03/22/2024 15:47:02 Final Standing order for pt/inr. < br/>Please draw pt/inr every 1 to 4 weeks as requested
Results to [facility]

Warfarin Therapy
INR: 2.0-3.0 conventional anticoagulation
INR: 2.5-3.5 high intensity anticoagulation Observation Date Value Abnormality Reference (Units ) Status PT 03/22/2024 15:47:02 29.5 Above high normal 11 .6-15.2 (seconds) Final INR 03/22/2024 15:47:02 2.8 Above high normal 0. 8-1.2 Final Performing Location LAB[facility] [place] [facility] [address] [facility] [address]
--- OUTSIDE RECORDS SUMMARY | 2024-06-15 06:51 | External Medical Summary | Summary of Care ---
Author Name Unknown Organization [facility] Address [address] [place] [address] Phone [phone] Care Team Providers Care Lawn And Garden Technician Name Role Phone Mir Street MD Primary Care Provider +1- [phone] Reason for Visit * Reason Comments Outpatient Testing Encounter Details Date Type Department Care Team (Late st Contact Info) Description 03/22/2024 3:50 PM EDT Laboratory Laboratory [facility] [address] [place] [phone] [place], [address] [place] [address] S/P aortic valve replacement Allergies Active Allergy Reactions Criticality Noted Date Comments Cat Dander Itching 09/27/2015 Itching eyes documented as of this encounter (statuses as of 03/22/2024) Medications Medication Sig Dispensed Refills Start Date End Date Status QUEtiapine Fumarate 300 MG Oral Tablet Take 1 Tablet by mouth at bedtime. Active amoxicillin (AMOXIL) 500 MG CapsuleIndications:C hronic thoracic aortic dissection (HCC) TAKE 4 CAPSULES BY MOUTH 1 HOUR BEFORE PROCEDURE. 28 Cap 09/14/2017 Active Melatonin 5 MG Tablet Take 1 Capsule by mouth at bedtime. Active albuterol HFA (VENTOLIN HFA) 108 (90 BASE) MCG/ACT inhalerIndications:C OPD, group B, by GOLD 2013 classification ([facility]) Inhale 2 Puffs by mouth every 4 hours as needed for Shortness of Breath or Wheezing. 1 Inhaler 1 03/17/2019 Active hydroCHLOROthiazide 25 MG Oral Tablet (Hydrodiuril)Indicat ions:S/P aortic valve replacement TAKE 1 TABLET BY MOUTH ONCE TO TWICE A WEEK NEEDED FOR FLUID RETENTION 20 Tablet 3 12/08/2022 Active Metoprolol Succinate ER 50 MG Oral Tablet Extended Release 24 Hour (toPROL XL)Indications:HTN, goal below 140/90,PAF (paroxysmal atrial fibrillation) (HCC) TAKE 1 TABLET BY MOUTH IN THE MORNING 90 Tablet 3 07/20/2023 Active Zoster Vac Recomb Adjuvanted 50 MCG/0.5ML Intramuscular Suspension Reconstituted (Shingrix)Indication s:Need for vaccination for zoster Inject 0.5 mL into a large muscle now and repeat dose in 60 to 180 days 1 Each 1 09/07/2023 Active levETIRAcetam 500 MG Oral Tablet (Keppra) TAKE 5 TABLETS BY MOUTH ONCE DAILY 450 Tablet 1 11/04/2023 Active Additional Information Patient taking differently: TAKE 4 TABLETS BY MOUTH ONCE DAILY, Reported on 12/15/2023 Tamsulosin HCl 0.4 MG Oral Capsule (Flomax)Indications: Acute urinary retention Take 1 capsule by mouth once daily 90 Capsule 2 12/02/2023 Active Warfarin Sodium 2.5 MG Oral Tablet (Coumadin)Indication s:PAF (paroxysmal atrial fibrillation) (HCC) TAKE 1/2 (ONE-HALF) TO 1 TABLET BY MOUTH ONCE DAILY DIRECTED BY ANTI COAG CLINIC 90 Tablet 3 12/09/2023 Active Finasteride 5 MG Oral Tablet (Proscar)Indications :Acute urinary retention Take 1 tablet by mouth once daily 90 Tablet 3 02/11/2024 Active documented as of this encounter (statuses as of 03/22/2024) Active Problems Problem Noted Date Diagnosed Date Prediabetes 01/25/2024 Overview: Per Prediabetes protocol Stage 3a chronic kidney disease 04/23/2020 Overview: Per CKD protocol - Per CKD protocol PAF (paroxysmal atrial fibrillation) 03/17/2019 HTN, goal below 140/90 10/13/2018 Unspecified mood (affective) disorder 09/14/2017 BPH with obstruction/lower urinary tract symptom s 09/14/2017 History of nonmelanoma skin cancer 05/25/2017 Overview: Hx of BCC on left upper chest - 2014 COPD, group B, by GOLD 2013 classification 01/19 Mixed restrictive and obstructive lung disease 1 Overview: Benefits from [employer]. History of tobacco use 01/18/2014 Seizures 12/13/2012 Overview: Sees Dr Love--on Keppra senior care current use of anticoagulant therapy 0 06/19/2003 Overview: ICD-10 update of inactive term AORTIC DISSECTION W/ AORTIC ROOT CONDUIT REPLACE MENT 06/18/2002 S/P aortic valve replacement documented as of this encounter (statuses as of 03/22/2024) Resolved Problems Problem Noted Date Diagnosed Date Resolved Date Kidney disease, chronic, sta ge III (GFR 30-59 ml/min) 04/25/2019 04/26/2020 Overview: Per CKD protocol CASTANON (dyspnea on exertion) 01/19/2017 BPH (benign prostatic hypert rophy) with urinary retention 07/29/2016 09/14/2017 Alcohol abuse 07/23/2016 03/17/2019 Overview: 08/01 1.5L whiskey/wk History of basal cell carcinoma 05/15/2016 05/25/2017 BCC (basal cell carcinoma of skin) 10/17/2014 05/25/2017 Neoplasm of uncertain behavior of skin 10/11/2014 09/14/2017 Pilar cyst 10/11/2014 09/14/2017 Elevated IgE level 06/14/2014 8 Routine general medical exam ination at a health care facility 03/13/2014 09/14/2017 Overview: Needs Zoster (insurance cost) ] 08/01 [facility] hyperdynamic >70 EF, +Aortic valve replacement 02/26 [...] 07/06/2012 03/17/2019 ADVANCE DIRECTIVE INFORMATION 12/30/2004 09/14/2017 Overview: No, Advance Directive brochure given to patient at prior appointment. Aortic valve disorder 12/13/20012018 Anticoagulation management encounter 12/13/2001 03/15/2018 Major depressive disorder Overview: ICD-10 update of inactive term Screening for prostate cancer 08/23/2008 Overview: Resolved per Screening Diagnosis Protocol #6 documented as of this encounter (statuses as of 03/22/2024) Immunizations Name Administration Dates Next Due Pneumococcal [...] Recorded PHQ Adult Total Score 0 09/07/2023 Utilities Answer Date Recorded Do you have trouble paying y our heating, water, or electric bill? (Adult - for ages 18 years and over) Not on file 12/01/2023 Is your family able to pay t he heat, water, or electric bill? (Household - for ages 0-17 years) Not on file 12/01/2023 Does your family have access to good internet? (Household - for ages 0-17 years) Not on file 12/01/2023 Social Connections Answer Date Recorded How often do you feel lonely or isolated from those around you? (Adult - for ages 18 years and over) Not on file 12/01/2023 Sex and Gender Information Value Date Recorded Sex Assigned at Not on file Gender Identity Not on file Sexual Orientation Not on file Job Start Date Occupation Industry Not on file Not on file Not on file documented as of this encounter Plan of Treatment Upcoming Encounters Date Type Department Care Team (Late st Contact Info) Description 03/23/2024 6:15 AM EDT Anticoagulation [facility], [facility] Adeel [address] [place] [address] [place] [address] [place] [address] 07/11/2024 3:00 PM EST Office Visit Neurology [facility] [address] [place] [address] Cesar Love MD [address] [facility] [place] [address] 07/14/2024 3:30 PM EST Office Visit Cardiology, [facility] [address] [address] Regis Scott MD [address] [place] [place] [address] 09/12/2024 1:00 PM EDT Office Visit Family [address] [place] [phone] [address] MD [address] [facility] [place] [phone] Pending Results Name Type Priority Associated Diagnoses Date /Time PT INR Lab Routine S/P aortic valve replacement 03/22/2024 3:47 PM EDT Health Maintenance Due Date Last Done Comments Zoster Vaccines (1 of 2) 1999 CKD PHOS USE SMARTSET 17810 10/10/2000 10/11/1999, 0 10/04/1999 Adult Wellness Visit 2015 DTap/Tdap Vaccines (2 - Td or Tdap) 03/11/2021 03/11/2011 COVID-19 Vaccine ( - season) 2024 03/22/2021, 08/31/2020, 08/10/2020 Influenza Vaccine (FLU shot) (#1) 2024 06/24/2023, 03/11/2022, 05/21/2021, Additional history exists CKD HGB USE SMARTSET 05214 07/13/202407/13, 07/13/2023, 09/24/2022, Additional history exists GFR [...] means documented in this encounter Care Teams Lawn And Garden Technician Relationship Specialty Start Date End Date Mir Street MD [address] [place] [address] PCP - General Family Medicine 07/31/16 documented as of this encounter
--- OUTSIDE RECORDS SUMMARY | 2024-06-15 06:51 | External Medical Summary | Summary of Care ---
Author Name Unknown Organization [facility] Address [address] [facility] [address] Phone [phone] Care Team Providers Care Senior Sql Database Developer Name Role Phone Mir Street MD Primary Care Provider +1- [phone] Reason for Visit * Reason Comments Dosage Adjustment Via Phone (anticoag Cl inic) Encounter Details Date Type Department Care Team (Late st Contact Info) Description 03/23/2024 6:05 AM EDT [facility]agulation [facility], Roman Denis [address] [place] [address] [place] [address] [place] [address] oysterman current use of anticoagulant therapy*; S/P aortic valve replacement Allergies Active Allergy Reactions Criticality Noted Date Comments Cat Dander Itching 09/27/2015 Itching eyes documented as of this encounter (statuses as of 03/23/2024) Medications Medication Sig Dispensed Refills Start Date [...] OPD, group B, by GOLD 2013 classification ([facility]) Inhale 2 Puffs by mouth every 4 [...] XL)Indications:HTN, goal below 140/90,PAF (paroxysmal atrial fibrillation) ([facility]) TAKE 1 TABLET BY MOUTH IN THE [...] Oral Tablet (Coumadin)Indication s:PAF (paroxysmal atrial fibrillation) ([facility]) TAKE 1/2 (ONE-HALF) TO 1 TABLET BY MOUTH ONCE DAILY DIRECTED BY ANTI COAG CLINIC 90 Tablet 3 12/09/2023 Active Finasteride 5 MG Oral Tablet (Proscar)Indications :Acute urinary retention Take 1 tablet by mouth once daily 90 Tablet 3 02/11/2024 Active documented as of this encounter (statuses as of 03/23/2024) Active Problems Problem Noted Date Diagnosed Date [...] Seizures 12/13/2012 Overview: Sees Dr Love--on Keppra oysterman current use of anticoagulant therapy 0 06/19/2003 Overview: ICD-10 update of inactive term AORTIC DISSECTION W/ AORTIC ROOT CONDUIT REPLACE MENT 06/18/2002 S/P aortic valve replacement documented as of this encounter (statuses as of 03/23/2024) Resolved Problems Problem Noted Date Diagnosed Date [...] Needs Zoster (insurance cost) ] 08/01 [facility]TE [facility] hyperdynamic >70 EF, +Aortic valve replacement [...] as of this encounter (statuses as of 03/23/2024) Immunizations Name Administration Dates Next Due Pneumococcal [...] on file documented as of this encounter Progress Notes * Mat Quintana CPhT - 03/23/2024 11:32 AM EDT Contacts Contact Date/Time Type Contact Phone/Fax 03/23/2024 11:29 AM EDT Phone (Outgoing) Cesar White (Self) [phone] (H) Left Message Subjective Advised patient to contact Anticoagulation Clinic if any unusual bruising or bleeding, recent illness, changes in medication, or questions/concerns. PT/INR results, Coumadin dose instructions, and next PT/INR date communicated as noted by Pharmacist: Yes Mat Quintana CPhT 03/23/2024, 11:32 AM * Mellisa Matt RP - 03/23/2024 11:23 AM EDT Coumadin Clinic (region specific) Objective Current Warfarin Dose As of 03/23/2024 Warfarin maintenance plan: 1.25 mg (2.5 mg x 0.5) every Tue; 2.5 mg (5 mg x 0.5) all other days INR Result As of 03/23/2024 INR goal: 2.5-3.5 INR used for dosin.8 (03/22/2024) Assessment & Plan Warfarin Plan As of 03/23/2024 Full warfarin instructions: 1.25 mg every Tue; 2.5 mg all other days No change documented: Mellisa Matt RPh Next INR check: 04/19/2024 Repeat PT/INR in 4 week(s) Weekly dose: not changed Additional Dosing Information: Description Saman Renee to contact patient with dose instructions as noted. Mellisa Matt RPh 03/23/2024, 11:24 AM documented in this encounter Plan of Treatment Upcoming Encounters Date Type Department Care Team (Late st Contact Info) Description 04/19/2024 4:00 PM EST Laboratory Laboratory [facility] Z[address] [place] [phone] Afua Shelton [facility] [address] [place] [address] [address] 04/20/2024 6:15 AM EST Anticoagulation [facility], [address] [place] [address] [place] [address] 07/11/2024 3:00 PM EST Office Visit Neurology [facility] Cat Zenia [address] [place] [address] Cesar Love MD [address] [place] [address] 07/14/2024 3:30 PM EST Office Visit Cardiology, [facility] [address] [address] Regis Scott MD [address] [place] [address] 09/12/2024 1:00 PM EDT Office Visit [facility] [place] [address] [place] [address] MD [address] [place] [address] Health Maintenance Due Date Last Done Comments Zoster Vaccines (1 of 2) 1999 CKD PHOS USE SMARTSET 18757 10/10/2000 10/11/1999, 0 10/04/1999 Adult Wellness Visit 2015 DTap/Tdap Vaccines (2 - Td or Tdap) 03/11/2021 03/11/2011 COVID-19 Vaccine ( season) 2024 03/22/2021, 08/31/2020, 08/10/2020 Influenza Vaccine (FLU shot) (#1) 2024 06/24/2023, 03/11/2022, 05/21/2021, Additional history exists CKD HGB USE SMARTSET 05205 07/13/202407/13, 07/13/2023, 09/24/2022, Additional history exists GFR [...] as of this encounter Visit Diagnoses Diagnosis oysterman current use of anticoagulant therapy- Primary S/P aortic valve replacement Heart valve replaced by other means documented in this encounter Care Teams Senior Sql Database Developer Relationship Specialty Start Date End Date Mir Street MD [address] [place] [address] PCP - General Family Medicine 07/31/16 documented as of this encounter
--- OUTSIDE RECORDS SUMMARY | 2024-06-15 06:51 | External Medical Summary | Summary of Care ---
Author Name Unknown Organization [facility] Address [address] [place] [address] Phone [phone] Care Team Providers Care Manager Support Services Name Role Phone Mir Street MD Primary Care Provider +1- [phone] Reason for Visit * Reason Onset Date Comments Advice 03/17/2024 Encounter Details Date Type Department Care Team ([facility] st Contact Info) Description 03/17/2024 Telephone [facility], Roman Denis [address] [place] [address] [place] [address] [place] [address] Advice Allergies Active Allergy Reactions Criticality Noted Date Comments Cat Dander Itching 09/27/2015 Itching eyes documented as of this encounter (statuses as of 03/21/2024) Medications Medication Sig Dispensed Refills Start Date [...] OPD, group B, by GOLD 2013 classification ([facility]) Inhale 2 Puffs by mouth [...] as of this encounter (statuses as of 03/21/2024) Active Problems Problem Noted Date Diagnosed Date [...] Seizures 12/13/2012 Overview: Sees Dr Love--on Keppra bow repairer custom current use of anticoagulant therapy 0 06/19/2003 Overview: ICD-10 update of inactive term AORTIC DISSECTION W/ AORTIC ROOT CONDUIT REPLACE MENT 06/18/2002 S/P aortic valve replacement documented as of this encounter (statuses as of 03/21/2024) Resolved Problems Problem Noted Date Diagnosed Date [...] Needs Zoster (insurance cost) ] 08/01 TTE [facility] hyperdynamic >70 EF, +Aortic valve [...] as of this encounter (statuses as of 03/21/2024) Immunizations Name Administration Dates Next Due Pneumococcal [...] on file documented as of this encounter Miscellaneous Notes * Telephone Encounter - Loraine Stacy RPh - 03/17/2024 4:03 PM EDT LVM to today. Pt seen in [facility] ED for fall. Pt with hematoma on buttocks. NO med changes INR was drawn in ED, 4.2.Advised pt needs to hold 2 doses total. Repeat INR on 03/22. Call sooner with any further signs of bleeding/bruising Loraine Stacy Rph, Pharm.D. Clinical Pharmacist [facility] ([facility]) [phone] 03/17/2024,4:13 PM * Telephone Encounter - Suzy Reese PHARM Tech - 03/17/2024 10:37 AM EDT Caller's name: Tobi Preferred call back number(OFFICE NUMBER FOR ): Patient Phone Numbers Reason for call: Patient's - Tobi calling in asking for a call back from pharmacist. She stated patient went to the ER last night due to being in pain from recent fall last week. Patient's INRwas 4.1 in the ER (Dc Milagros). Please advise and call Tobi back Thank you, Johanne Reese Store Receiving Clerk [facility] ([facility]) 03/17/2024, 10:37 AM documented in this encounter Plan of Treatment Upcoming Encounters Date Type Department Care Team (Late st Contact Info) Description 03/22/2024 3:50 PM EDT Laboratory Laboratory [facility] [address] [facility] [place] [phone] [address] [place] [address] 03/23/2024 6:15 AM EDT Anticoagulation [facility] Clinical Pharmacy Services, Roman Denis [address] [place] [address] [address] [facility], [address] [place] [address] 07/11/2024 3:00 PM EST Office Visit Neurology [facility] [address] [facility] [place] [address] Cesar Love MD [address] [facility] [place] [address] 07/14/2024 3:30 PM EST Office Visit Cardiology, [facility] [address] [facility] [place] [address] Regis Scott MD [address] [facility] [place] [address] 09/12/2024 1:00 PM EDT Office Visit [facility] [address] [place] [phone] [address] MD [address] [place] [address] Health Maintenance Due Date Last Done Comments Zoster Vaccines (1 of 2) 1999 CKD PHOS USE SMARTSET 76615 10/10/2000 10/11/1999, 0 10/04/1999 Adult Wellness Visit 2015 DTap/Tdap Vaccines (2 - Td or Tdap) 03/11/2021 03/11/2011 COVID-19 Vaccine (4 - season) 2024 03/22/2021, 08/31/2020, 08/10/2020 Influenza Vaccine (FLU shot) (#1) 2024 06/24/2023, 03/11/2022, 05/21/2021, Additional history exists CKD HGB USE SMARTSET 26857 07/13/202407/13, 07/13/2023, 09/24/2022, Additional history exists GFR [...] as of this encounter Visit Diagnoses Diagnosis correction current use of anticoagulant therapy- Primary S/P aortic valve replacement Heart valve replaced by other means documented in this encounter Care Teams Manager Support Services Relationship Specialty Start Date End Date Mir Street MD [address] [place] [address] PCP - General Family Medicine 07/31/16 documented as of this encounter
--- OUTSIDE RECORDS SUMMARY | 2024-06-15 06:51 | External Medical Summary | Summary of Care ---
Author Name Unknown Organization [facility] Address [address] [place] [address] Phone [phone] Care Team Providers Care Tile Mechanic Helper Name Role Phone Mir Street MD Primary Care Provider [phone]- [phone] Reason for Visit * Reason Comments Hospital Follow-Up Encounter Details Date Type Department Care Team (Latest Contact Info) Description 03/01/2024 3:20 PM EDT Office Visit [facility] [address] [place] [address] MD [address] [place] [address] Ureterolithiasis*; PAF (paroxysmal atrial fibrillation) ([facility]); Stage 3a chronic kidney disease ([facility]); COPD, group B, by GOLD 2013 classification ([facility]); Risk and functional assessment Allergies Active Allergy Reactions Criticality Noted Date [...] OPD, group B, by GOLD 2013 classification ([facility]) Inhale 2 Puffs by mouth [...] XL)Indications:HTN, goal below 140/90,PAF (paroxysmal atrial fibrillation) ([facility]) TAKE 1 TABLET BY MOUTH [...] Oral Tablet (Coumadin)Indication s:PAF (paroxysmal atrial fibrillation) ([facility]) TAKE 1/2 (ONE-HALF) TO 1 [...] 01/18/2014 Seizures 12/13/2012 Overview: Sees Dr Love--on Kepp main[place] former current use of anticoagulant therapy 0 06/19/2003 [...] Needs Zoster (insurance cost) ] 08/01 TTE [facility] hyperdynamic >70 EF, +Aortic valve replacement 02/26 [...] 0 10/01/1971 - 10/01/1999 Smokeless Tobacco: Never Tobacco Cessation:Counseling Given: Not Answered Alcohol Use Standard Drinks/Week Comments Yes 0 [...] on file documented as of this encounter Last Filed Vital Signs Vital Sign Reading Time Taken Comments Blood Pressure 122/70 03/01/2024 3:37 PM EDT Pulse 77 03/01/2024 3:37 PM EDT Temperature 36.6 C (97.8 F) 03/01/2024 3:37 PM ED T Respiratory Rate 20 03/01/2024 3:37 PM EDT Oxygen Saturation 98% 03/01/2024 3:37 PM EDT Inhaled Oxygen Concentration - - Weight 95.3 kg (210 lb) 03/01/2024 3:37 PM EDT Height 175 cm (5' 8.89") 03/01/2024 3:37 PM EDT Body Mass Index 31.11 03/01/2024 3:37 PM EDT documented in this encounter Patient Instructions * Patient Instructions* Stephanie Meza LPN - 03/01/2024 3:37 PM EDT Patient Instructions - Fall Prevention (This education is for all patients over 65 regardless of symptoms) Remember to take your current medications as prescribed. In order to prevent falls, you are encouraged to: Exercise Utilize assistive/adaptive devices Avoid multifocal lenses when walking Avoid hazards in home Maintain a regular toileting schedule Any questions please contact our office. Preventing Falls in the Home (This education is for all patients over 65 regardless of symptoms) As you get older, falls are more likely. Thats because your reaction time slows. Your muscles and joints may also get stiffer, making them less flexible. Illness, medications, and vision changes can also affect your balance. A fall could leave you unable to live on your own. To make your home safer, follow these tips: Floors Put nonskid pads under area rugs Remove throw rugs Replace worn floor coverings Tack carpets firmly to each step on carpeted stairs. Put nonskid strips on the edges of uncarpeted stairs Keep floors and stairs free of clutter and cords Arrange furniture so there are clear pathways Clean up any spills right away Bathrooms Install grab bars in the tub or shower Apply nonskid strips or put a nonskid rubber mat in the tub or shower Sit on a bath chair to bathe Use bathmats with nonskid backing Lighting Keep a flashlight in each room Put a nightlight along the pathway between the bedroom and the bathroom [employer] Patient Education Copyright 2008 - 2010 [place] except where otherwise noted Preventing Falls: Exercises to Improve Balance, Flexibility, Strength, and Staying Power (This education is for all patients over 65 regardless of symptoms) Certain types of exercises may help make you less likely to fall. Try the ones below. Or do other exercises that your healthcare provider suggests. Depending on your health, you may need to start slowly. Dont let that stop you. Even small amounts of exercise can help you. Be sure to talk to yourhealthcare provider before starting any exercise program. Improve Balance Many types of exercise can help improve balance. Jessee chi and yoga are good examples. Heres another one to try. You can do it anytime and almost anywhere. Stand next to a counter or solid support. Push yourself up onto your tiptoes. Hold for 5 seconds. If you start to lose your balance, hold on to the counter. Rest and repeat 5 times. Work up to holding for 20 to 30 seconds, if you can. Increase Flexibility Being more flexible makes it easier for you to move around safely. Try exercises like the seated hamstring stretch. Sit in a chair and put one foot on a stool. Straighten your leg and reach with both hands down either side of your leg. Reach as far down your leg as you can. Hold for about 20 seconds. Go back to the starting position. Then repeat 5 times. Switch legs. Build Strength Resistance exercises help build strength. You can do them without equipment. Or you can use weights, elastic bands, or special machines. One such exercise is called the biceps curl. You can hold a 1 pound weight or even a can of soup. Do this exercise at least 3 times a week. Strive for everyday. Sit up straight in a chair. Keep your elbow close to your body and your wrist straight. Bend your arm, moving your hand up to your shoulder. Then slowly lower your arm. Repeat 5 times. Switch to the other arm. Build Your Staying Power Aerobic exercises make your heart and lungs stronger so you can keep moving longer. Walking and swimming are two of the best types of exercises you can do. Using a stationary bike is great, too. Find an aerobic exercise that you enjoy. Start slowly and build up. Even 5 minutes is helpful. Aimfor a goal of 30 minutes, at least 3 times a week. You dont have to do 30 minutes in one session. Break it up and walk a little throughout the day. More Helpful Tips Start easy. Slowly work up to doing more. Talk with your healthcare provider about the best exercises for you. Call senior centers or health clubs about exercise programs. If needed, have a family member watch you walk every so often to check your stability. Exercise with a friend. Choose an activity you both enjoy. Try exercises that you can do anytime, anywhere. Here are two examples. Have someone with you when you first try these: Practice walking by placing one foot right in front of the other. Stand up and sit down 10 times. Repeat this throughout the day. [facility] Patient Education Copyright 2008 - 2010 [place] except where otherwise noted. Preventing Falls: Moving Safely Using a Cane or Walker (This education is for all patients over 65 regardless of symptoms) Keep the cane away from your feet so you dont trip. A walking aid, such as a cane or walker, can help you stay more independent and avoid falls. Remember to keep your walking aid within easy reach when youre in a chair or in bed. And learn how to use it safely so you dont injure yourself. Using a Cane If you have a stronger side, hold the cane on that side. Get your balance. Move the cane and your weaker leg forward. Support your weight on both the cane and your weaker side. Step with your stronger leg. Start again from step 1. If youre using a folding walker, be sure you know how to lock it open. Check that its locked open before each use. Using a Walker Roll the walker (or lift it, if youre using one without wheels) forward about 12 inches. Step forward with your weaker leg first. Use the walker to help keep your balance. Bring your other foot forward to the center of the walker. Start again from step 1. Helpful Tips Check with your healthcare provider about the right walking aid to use. Ask about a walker with a seat attached. Check the tips of your cane or walker to make sure they have nonskid covers. Move slowly from room to room. Dont sylvester. Sit down to get dressed. Use a edson pack or backpack to keep your hands free. Get help for jobs that mean climbing, even on a stepstool. [employer] Patient Education Copyright 2009 - 2010 Camille except where otherwise noted. Treating Urinary Incontinence in Men (This education is for all patients over 65 regardless of symptoms) You can't always control the release of urine. You may leak urine. Or you may not be able to hold your urine until you can get to a bathroom. This is called urinary incontinence. The problem can be managed. Talk to your doctor about your treatment options. Taking Medications Prescription medications may help you. They may: Help the sphincter to work better. (This is the muscle that closes to keep urine from leaking out of the bladder.) Help stop the bladder from johanna too often to push urine out. Help the bladder muscles contract with more force. Help relax the sphincter muscle and allow urine to flow more freely. Making Changes to Your Routine Certain changes in your daily routine may help. These include: Avoiding caffeine and alcohol. Using timed voiding. This is following a schedule for drinking fluids and urinating. Doing Kegel exercises daily. These exercises involve tightening the muscles in your sphincter and around your bladder to help strengthen them. Your doctor can explain how to do them. Using a Catheter A catheter is a narrow tube that is inserted through the urethra into the bladder. It drains urine.A condom catheter covers the penis. It channels urine into a collection bag. It is worn most of thetime. Intermittent catheterization means inserting a catheter to drain the bladder, then removing it. This is done on a regular schedule. Having Surgery If other options don't work, surgery may be recommended. If surgery is an option, your healthcare provider can discuss it with you and explain its risks and benefits. Healing After Prostate Surgery Surgery on the prostate gland can cause incontinence. Most often, the incontinence is only for a short time. It clears up when healing is complete. Very rarely, prostate surgery can result in permanent incontinence. documented in this encounter Progress Notes * Mir Street MD - 03/21/2024 7:21 PM EDT Subjective: Cesar White is a 74 year old male here today for Chief Complaint Patient presents with Hospital Follow-Up Patient presents for emergency department follow-up. He was seen at the emergency department at [facility] on February 25, 2024. Was seen for hematuria, right flank pain. Was found by CT scan to have a distal right uvj stone. Creatinine elevated to 2.3. His INR was slightly elevated from the normal range. His flank pain has resolved. His hematuria has resolved. He is here for repeat labs for kidney function and his INR. Past Medical History: Diagnosis Date Accessory skin tags 03/13/2014 Alcohol abuse 07/23/201608/01 1.5L whiskey/wk Anemia 03/06/2012 Post esoph tear/bleeding. Caused by hiccups. Resolved. AORTIC DISSECTION W/ AORTIC ROOT CONDUIT REPLACEMENT 06/18/2002 BCC (basal cell carcinoma of skin) 10/17/2014 COPD, group B, by GOLD 2013 classification (HCC) 01/19/2017 Depressive disorder, not elsewhere classified Epistaxis 07/22/2016 hosp. [facility] INR 4 Itchy eyes 03/13/2014 S/P aortic valve replacement 1999 Past Surgical History: Procedure Laterality Date COLORECTAL CANCER SCREEN; NOT AT RISK 06/2007 normal LAPAROSCOPY; CHOLECYSTECTOMY 10/04/2008 [facility] - Dr. Arias - laparoscopic cholecystectomy 10/04/2008 REPAIR INITIAL INGUINAL HERNIA REDUCIBLE AGE 5 OR MORE 10/07/2010 10/07/2010- [facility] - Dr. Arias REPLACEMENT AORTIC VALVE,NON-CORONARY SINUS 10/01/99 Aortic Dissection Tara/Behzad Review of patient's allergies indicates: Allergen Reactions Cats [Cat Dander] Itching Itching eyes Current Outpatient Medications Medication Sig Dispense Refill amoxicillin (AMOXIL) 500 MG Capsule TAKE 4 CAPSULES BY MOUTH 1 HOUR BEFORE PROCEDURE. 28 Cap 0 Melatonin 5 MG Tablet Take 1 Capsule by mouth at bedtime. albuterol HFA (VENTOLIN HFA) 108 (90 BASE) MCG/ACT inhaler Inhale 2 Puffs by mouth every 4 hours asneeded for Shortness of Breath or Wheezing. 1 Inhaler 1 hydroCHLOROthiazide 25 MG Oral Tablet (Hydrodiuril) TAKE 1 TABLET BY MOUTH ONCE TO TWICE A WEEK NEEDED FOR FLUID RETENTION 20 Tablet 3 Metoprolol Succinate ER 50 MG Oral Tablet [...] by mouth once daily 90 Tablet 3 QUEtiapine Fumarate 300 MG Oral Tablet Take 1 Tablet by mouth at bedtime. Zoster Vac Recomb Adjuvanted 50 MCG/0.5ML Intramuscular Suspension Reconstituted (Shingrix) Inject 0.5 mL into a large muscle now and repeat dose in 60 to 180 days 1 Each 1 No current facility-administered medications for this visit. Objective: BP 122/70 | Pulse 77 | Temp 36.6 C (97.8 F) (Tympanic) | Resp 20 | Ht 1.75 m (5' 8.89") | Wt 95.3 kg (210 lb) | SpO2 98% | BMI 31.11 kg/m | BSA 2.15 m GEN: NAD CHEST: CTA B CV: RRR ABD: Soft, NT/ND, No HSM, NABS EXT: No c,c,e Assessment and Plan: Ureterolithiasis (Primary) -repeat labs today PAF (paroxysmal atrial fibrillation) (HCC) - PT INR; Future; Expected date: 03/01/2024 Stage 3a chronic kidney disease (HCC) - ALBUMIN / CREATININE RATIO, URINE; Future; Expected date: 03/01/2024 - BASIC METABOLIC PANEL; Future; Expected date: 03/01/2024 COPD, group B, by GOLD 2013 classification ([facility]) - [id number], QN; Future; Expected date: 03/01/2024 Risk and functional assessment Follow Up: Return if symptoms worsen or fail to improve. 24 min with pt and chart review. Mir Street MD documented in this encounter Nursing Notes * Stephanie Meza LPN - 03/01/2024 3:37 PM EDT The patient has been properly identified by confirmation of name and date of . Chief Complaint Patient presents with Hospital Follow-Up Patient needs to have PT/INR and kidney function checked Post hospital visit documented in this encounter Plan of Treatment Upcoming Encounters Date Type Department Care Team (Late st Contact Info) Description 03/22/2024 3:50 PM EDT Laboratory Laboratory [facility] [address] [place] [address] [facility] [address] [place] [address] 03/23/2024 6:15 AM EDT Anticoagulation [facility], Roman Denis [address] [place] [address] [place] [address] [place] [address] 07/11/2024 3:00 PM EST Office Visit Neurology [facility] [address] [facility] [place] [address] Cesar Love MD [address] [facility] [place] [address] 07/14/2024 3:30 PM EST Office Visit Cardiology, [facility] [address] [place] [address] Regis Scott MD [address] [place] [address] 09/12/2024 1:00 PM EDT [facility] [address] [place] [phone] MD [address], [place] [id number] Health Maintenance Due Date Last Done Comments Zoster Vaccines (1 of 2) 1999 CKD PHOS USE SMARTSET 81319 10/10/2000 10/11/1999, 0 10/04/1999 Adult Wellness Visit 2015 DTap/Tdap Vaccines (2 - Td or Tdap) 03/11/2021 03/11/2011 COVID-19 Vaccine ( - season) 2024 03/22/2021, 08/31/2020, 08/10/2020 Influenza Vaccine (FLU shot) (#1) 2024 06/24/2023, 03/11/2022, 05/21/2021, Additional history exists CKD HGB USE SMARTSET 09502 07/13/202407/13, 07/13/2023, 09/24/2022, Additional history exists GFR [...] Not on filedocumented as of this encounter Results * ALBUMIN / CREATININE RATIO, URINE (03/01/2024 4:32 PM EDT) Albumin, Random Urine <1.20 mg/dL 03/01/2024 10:55 PM EDT [facility] Creatinine, Random Urine 189 mg/dL 03/01/2024 10:55 PM EDT [facility] Albumin / Creatinine Ratio, Urine <6 <30 mg/g Creat 03/01/2024 10:55 PM EDT [facility] Urine Urine specimen / Unknown Non-blood Collection / Unknown 03/01/2024 4:32 PM EDT 03/01/2024 4:32 PM EDT Narrative [facility] - 03/01/2024 10:55 PM EDT Normal: <30 mg/g creatinine High: 30-300 mg/g creatinine Very High: >300 mg/g creatinine Nephrotic: >2200 mg/g creatinine Mir Street MD LAB URINE ORDERABL ES [facility] [address] [place] [address] * [id number], QN (03/01/2024 4:28 PM EDT) [id number] in QN 172 83 - 199 mg/dL 03/06/2024 4:52 PM EDT [facility] Comment: Test Performed at: [facility] [address] [place] [address] Winston Bey M.D., Ph.D.,Director of Laboratories Blood Venous blood specimen / Unknown Venipuncture / Unknown 03/01/2024 4:28 PM EDT 03/01/2024 4:[address] MD LAB BLOOD ORDERABL ES [facility] [address] [place] [address] documented in this encounter Visit Diagnoses Diagnosis Ureterolithiasis- Primary Calculus of ureter PAF (paroxysmal atrial fibrillation) (HCC) Atrial fibrillation Stage 3a chronic kidney disease (HCC) COPD, group B, by GOLD 2013 classification ([facility]) Risk and functional assessment Screening for unspecified condition documented in this encounter Care Teams Tile Mechanic Helper Relationship Specialty Start Date End Date Mir Street MD [address] [place] [facility] [address] PCP - General Family Medicine 07/31/16 documented as of this encounter
--- OUTSIDE RECORDS SUMMARY | 2024-06-15 06:51 | External Medical Summary | Summary of Care ---
Author Name Unknown Organization [facility] Address [address] [facility] [place] [address] Phone [phone] Care Team Providers Care Stock Preparation Supervisor Name Role Phone Mir Street MD Primary Care Provider +1- [phone] Reason for Visit * Reason Onset Date Comments Protime Testing 04/18/2024 Encounter Details Date Type Department Care Team (Late st Contact Info) Description 04/18/2024 Telephone Centralized Clinical Pharm[facility] Services, Roman Denis [address] [place] [address] [place] [address] Loraine Stacy, [facility] [address] [place] [address] Protime Testing (/) Allergies Active Allergy Reactions Criticality Noted Date Comments Cat Dander Itching 09/27/2015 Itching eyes documented as of this encounter (statuses as of 04/18/2024) Medications Medication Sig Dispensed Refills Start Date [...] OPD, group B, by GOLD 2013 classification ([facility] [...] as of this encounter (statuses as of 04/18/2024) Active Problems Problem Noted Date Diagnosed Date [...] Seizures 12/13/2012 Overview: Sees Dr Love--on Keppra manager intermediate current use of anticoagulant therapy 0 06/19/2003 Overview: ICD-10 update of inactive term AORTIC DISSECTION W/ AORTIC ROOT CONDUIT REPLACE MENT 06/18/2002 S/P aortic valve replacement documented as of this encounter (statuses as of 04/18/2024) Resolved Problems Problem Noted Date Diagnosed Date [...] as of this encounter (statuses as of 04/18/2024) Immunizations Name Administration Dates Next Due Pneumococcal [...] Telephone Encounter - Loraine Stacy RPh - 04/18/2024 2:31 PM EST PT/INR order signed Loraine Stacy Rph, Pharm.D. Clinical Pharmacist [facility] ([facility]) [phone] 04/18/2024,2:32 PM documented in this encounter Plan of Treatment Upcoming Encounters Date Type Department Care Team (Late st Contact Info) Description 04/19/2024 4:00 PM EST Laboratory Laboratory [facility] [address] [place] [address] Cat [facility] [address] [facility] [place] [address] 04/20/2024 6:15 AM EST Anticoagulation [facility], Roman Denis [address] [place] [address] [place] [address] [place] [address] 07/11/2024 3:00 PM EST Office Visit Neurology [facility] [address] [facility] [place] [address] Cesar Love MD [address] [place] [address] 07/14/2024 3:30 PM EST Office Visit Cardiology, [facility] [address] [facility] [place] [address] Regis Scott MD [address] [place] [address] 09/12/2024 1:00 PM EDT Office Visit Family [facility] [address] [place] [address] MD [address] [place] [address] Scheduled Orders Name Type Priority Associated Diagnoses Orde r Schedule PT INR Lab Routine Anticoagulation management encounter Other, Please specify in Comments field for 26 Occurrences starting 04/18/2024 until 04/18/2025 Health Maintenance Due Date Last Done Comments Zoster Vaccines (1 of 2) 1999 CKD PHOS USE SMARTSET 96224 10/10/2000 10/11/1999, 0 10/04/1999 Adult Wellness Visit 2015 DTap/Tdap Vaccines (2 - Td or Tdap) 03/11/2021 03/11/2011 COVID-19 Vaccine ( season) 2024 03/22/2021, 08/31/2020, 08/10/2020 Influenza Vaccine (FLU shot) (#1) 2024 06/24/2023, 03/11/2022, 05/21/2021, Additional history exists CKD HGB USE SMARTSET 91167 07/13/202407/13, 07/13/2023, 09/24/2022, Additional history exists GFR [...] this encounter Visit Diagnoses Diagnosis Anticoagulation management encounter- Primary Encounter for therapeutic drug monitoring documented in this encounter Care Teams Stock Preparation Supervisor Relationship Specialty Start Date End Date Mir Street MD [address] [place] [address] PCP - General Family Medicine 07/31/16 documented as of this encounter
--- NOTE | 2024-06-15 07:08 | Emergency Department Note ---
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 Over the last 12 hours noticing coffee-ground emesis. Does have a history of GI bleed. He is also somewhat dehydrated by examination. Exam and IV fluids with improvement in his heart rate and some nausea medications feeling much improved. With distended abdomen a CT of the ab pelvis without contrast was obtained. This does show ileus but no overt obstruction appreciated. Suspect patient has seen there gastric ulcer or Diana-Taylor tears that are bleeding due to the development of sepsis. He is not significantly anemic and given his mildly try to avoid rapidly correcting INR that is somewhat elevated at this point. Hemoglobin is stable and vital signs are stable patient is comfortable plan for hospitalization as his . Triage/Nursing Notes reviewed by Me Differential:Gastroenteritis, food borne illness, infections, appendicitis, diverticulitis, inflammatory bowel disease, obstruction, GI bleed, biliary pathology, volvulus, as well as other pathologies. Vital Signs: reviewed and remarkable for mild tachycardia on arrival Interventions: Normal Saline bolus 1 L IV, Zofran IV, Protonix IV Labs:ED labs Reviewed by me and remarkable for elevated INR Imaging:CT of the ab pelvis without contrast as per my informal interpretation reveals distention of small bowel without clear transition point. No free air or pneumatosis appreciated EKG:As per my interpretation. Indication epigastric discomfort. A-fib RVR 114 bpm with a QTc of 450. PVC noted. No ischemia appreciated. No significant change from March 24, 2024 EKG other than rate increase. Cardiac/Tele Monitoring: Cardiac Monitoring: An Order was placed for continuous cardiac monitoring. The monitor shows a rate of 90 with a afib rhythm. Consults:Discussed with hospitalist service who will evaluation further Plan: Disposition: Hospitalization Condition: Good History of Present Illness: 74-year-old gentleman arrives for evaluation of vomiting. Patient with 4 days worsening nausea, vomiting. Associated with mild abdominal discomfort diffusely but no specific pain. Notes that he does not think he had a bowel movement in the last 3 to 4 days as well. Over the last 12 to 24 hours emesis has turned from yellow to dark brown. Patient states he feels thirsty. He is on Coumadin for history of metal aortic valve replacement as well as A-fib. He has been taking his Coumadin. Does have a history of significantly elevated INR earlier this year along with some NELA. No known sick contacts. No falls, trauma, injuries. No shortness of breath, chest pain, back pain, fevers, chills, leg swelling, rashes or other concerning signs or symptoms. Past Medical History:See Below Home Medications:See Below Allergies:See Below Vitals:Blood Pressure: 157/93, Pulse 105, RR 20, T 36.8C, O2 98% on RA Physical Exam: GENERAL: Patient is dehydrated appearing and in mild distress. RESPIRATORY: No dyspnea. Clear to auscultation and equal bilaterally. CARDIOVASCULAR: irregular, tachy, metalic click of valve GASTROINTESTINAL: Abdomen is mildly distended with hyperactive bowel sounds throughout. No specific tenderness to palpation or peritonitis. EXTREMITIES: Normal motion all extremities, no cyanosis, no edema. NEUROLOGIC: Alert and oriented. No focal neurologic deficits appreciated SKIN: No rash, no jaundice, no diaphoresis. PSYCH: Appropriate GCS: 15 ED Course: Times/Reassessments: Patient is feeling significantly better after fluids and Zofran. Agreeable to hospitalization. 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 Surgical History S/P AVR "2000" Family History Other Family history non-contributory Social History Smoking Status: Never smoker Tobacco Type: Cigarettes Hx Alcohol Use: Yes Hx Substance Use: No Preferred Language: Nigerian Communication Ability: Effective Industrial Relations Commissioner Required: No Beliefs That Will Affect Care: None Current Living Situation: Spouse Other Information That Helps Us Care for You: No Feels Safe at Home: Yes Safety Concerns: Feels Safe At This Time Assistive Devices: None Allergies Allergies Allergy/AdvReac Type Severity Reaction Status Date / Time pollen extracts Allergy Sneezing Unverified 03/16/24 22:43 JENNIFER Inhibitors AdvReac Mild cough Verified 03/25/21 12:19 Home Meds Home Medications Medication Instructions Recorded Confirmed finasteride 5 mg tablet 5 mg PO QPM 03/25/21 06/15/24 hydrochlorothiazide 25 mg tablet 25 mg PO [id number] PRN Fluid Retention 03/25/21 06/15/24 levetiracetam 500 mg tablet 2,000 mg PO QPM 03/25/21 06/15/24 tamsulosin 0.4 mg capsule 0.4 mg PO DAILY 03/25/21 06/15/24 warfarin 2.5 mg tablet 1.25 mg PO WK 03/08/22 06/15/24 metoprolol succinate 50 mg 50 mg PO QPM 02/26/24 06/15/24 tablet,extended release 24 hr quetiapine 300 mg tablet 300 mg PO HS 02/26/24 06/15/24 warfarin 2.5 mg tablet 2.5 mg PO [id number] 06/15/24 06/15/24 Results & Data (ED) Vital Signs Vital Signs - 24 hr 06/15/24 06:46 Temperature 36.8 C Temperature Source Temporal Artery Scan Pulse Rate 105 H Respiratory Rate 20 Respiratory Depth Normal Blood Pressure 157/93 H Blood Pressure Mean 114 Blood Pressure Position Sitting Pulse Oximetry 98 Oxygen Delivery Method Room Air Sepsis Recent Fever Within 48 Hours No Sepsis New/Unexplained Change in Mental Status No Sepsis Action Taken by Nursing No Action Required Laboratory Data 06/15/24 19:22 06/15/24 07:12 Lab Results 06/15/24 Range/Units 07:12 WBC 10.55 (4.8-10.8) K/ul RBC 5.67 (4.70-6.10) M/uL Hgb 16.0 (14.0-18.0) g/dl Hct 46.9 (42.0-52.0) % MCV 82.7 (80.0-100.0) fL MCH 28.2 (25.0-34.0) pg MCHC 34.1 (32.0-36.0) g/dL RDW Std Deviation 37.9 (36.4-46.3) fL RDW Coeff of Jb 12.7 (11.5-14.5) % Plt Count 223 (130-400) K/uL MPV 10.3 (9.4-12.4) fL Immature Gran % (Auto) 0.7 % Neut % (Auto) 83.5 % Lymph % (Auto) 5.6 % [place] % (Auto) 9.2 % Eos % (Auto) 0.6 % Baso % (Auto) 0.4 % Neut # (Auto) 8.82 H (1.40-6.50) K/uL Lymph # (Auto) 0.59 L (1.20-3.40) K/uL [place] # (Auto) 0.97 H (0.11-0.59) K/uL Eos # (Auto) 0.06 (0.00-0.50) K/uL Baso # (Auto) 0.04 (0.00-0.20) K/uL Immature Gran # (Auto) 0.07 (0.01-0.20) K/uL PT 43.4 H (9.0-12.0) Seconds INR 4.6 H (0.9-1.1) APTT 44 H (21-31) Seconds PTT Ratio 1.6 Sodium 138 (136-145) mmol/L Potassium 4.1 (3.5-5.1) mmol/L Chloride 98 (98-107) mmol/L Carbon Dioxide 28 (21-32) mmol/L Anion Gap 12 H (3-11) BUN 27 H (6-23) mg/dl Creatinine 1.72 H (0.6-1.4) mg/dl Est Cr Clr Drug Dosing 42.5 ml/min eGFR 40.94 BUN/Creatinine Ratio 15.7 (10-20) Glucose 177 H (70-99(Fasting)) mg/dl Calcium 9.5 (8.6-10.3) mg/dl Magnesium 1.8 (1.7-2.4) mg/dl Total Bilirubin 1.1 H (0.2-1.0) mg/dl Direct Bilirubin 0.2 (0-0.2) mg/dl AST 26 (13-39) U/L ALT 17 (7-52) U/L Alkaline Phosphatase 93 (34-104) U/L Troponin I High Sens 10.2 (0-20) pg/ml Total Protein 8.2 (6.0-8.3) gm/dl Albumin 4.2 (3.4-5.0) gm/dl Lipase 6 L (11-82) U/L TSH 1.475 (0.300-4.500) uIu/ml Administered Medications Pantoprazole Sodium 40 mg/ (Dextrose) 100 mls @ 20 mls/hr IV Q5H ARACELI Stop: 07/15/24 09:29 Last Admin: 06/16/24 06:32 Dose: 8 mg/hr, 20 mls/hr Documented By: Infusion: 06/16/24 06:32 Dose: Infused Documented By: Admin: 06/16/24 02:06 Dose: 8 mg/hr, 20 mls/hr Documented By: Infusion: 06/16/24 01:28 Dose: Infused Documented By: Admin: 06/15/24 20:28 Dose: 8 mg/hr, 20 mls/hr Documented By: Infusion: 06/15/24 20:16 Dose: Infused Documented By: Admin: 06/15/24 15:16 Dose: 8 mg/hr, 20 mls/hr Documented By: Infusion: 06/15/24 15:15 Dose: Infused Documented By: Admin: 06/15/24 10:42 Dose: 8 mg/hr, 20 mls/hr Documented By: VALARIE Sodium Chloride (Nss) 1,000 mls @ 125 mls/hr IV .Q8H ARACELI Stop: 06/16/24 10:29 Last Admin: 06/16/24 02:08 Dose: 125 mls/hr Documented By: Infusion: 06/16/24 02:08 Dose: Infused Documented By: Admin: 06/15/24 19:09 Dose: 125 mls/hr Documented By: Infusion: 06/15/24 18:42 Dose: Infused Documented By: Admin: 06/15/24 10:42 Dose: 125 mls/hr Documented By: VALARIE Levetiracetam (Levetiracetam 250 Mg Tab) 750 mg PO Q12H ARACELI Stop: 07/15/24 22:59 Last Admin: 06/15/24 23:10 Dose: 750 mg Documented By: RUSSELL Metoprolol Succinate (Metoprolol Succ 50mg Ext Rel Tab) 50 mg PO QPM ARACELI Stop: 07/15/24 20:59 Last Admin: 06/15/24 20:27 Dose: 50 mg Documented By: RUSSELL Quetiapine Fumarate (Quetiapine Fumarate 300 Mg Tablet) 300 mg PO HS ARACELI Stop: 07/15/24 20:59 Last Admin: 06/15/24 20:27 Dose: 300 mg Documented By: RUSSELL Discontinued Medications Sodium Chloride (Nss) 1,000 mls @ 999 mls/hr IV .Q1H1M ONE Stop: 06/15/24 08:05 Last Infusion: 06/15/24 08:34 Dose: Infused Documented By: Admin: 06/15/24 07:33 Dose: 999 mls/hr Documented By: VALARIE Pantoprazole Sodium 80 mg/ (Dextrose) 120 mls @ 480 mls/hr IV ONE STA Stop: 06/15/24 07:19 Last Infusion: 06/15/24 08:13 Dose: Infused Documented By: Admin: 06/15/24 07:58 Dose: 480 mls/hr Documented By: VALARIE Ondansetron HCl (Ondansetron Inj 2 Mg/Ml 2 Ml Vial) 4 mg IV NOW STA Stop: 06/15/24 07:06 Last Admin: 06/15/24 07:33 Dose: 4 mg Documented By: VALARIE Discharge Plan Visit Data Chief Complaint: Vomiting Stated Complaint: VOMITING ED Provider: Niels Hillman Discharge Problem: Acute upper GI bleed, Elevated INR, Ileus, Acute dehydration Patient Disposition: Admitted As Inpatient Discharge Instructions Interventions: ED Discharge Assessment Last Done: 06/15/24 11:51
[2024-06-15 07:30] LABS: Basophils # (auto) 0.04 K/uL (0.00-0.20); Basophils % (auto) 0.4 %; Eosinophils # (auto) 0.06 K/uL (0.00-0.50); Eosinophils % (auto) 0.6 %; Hematocrit (blood only) 46.9 % (42.0-52.0); Immature Granulocytes # (auto) 0.07 K/uL (0.01-0.20); Immature Granulocytes % (auto) 0.7 %; Lymphocytes # (auto) 0.59 K/uL (1.20-3.40); Lymphocytes % (auto) 5.6 %; Mean Corpuscular Hemoglobin 28.2 pg (25.0-34.0); Mean Corpuscular Hgb Conc 34.1 g/dL (32.0-36.0); Mean Corpuscular Volume 82.7 fL (80.0-100.0); Mean Platelet Volume 10.3 fL (9.4-12.4); Monocytes # (auto) 0.97 K/uL (0.11-0.59); Monocytes % (auto) 9.2 %; Neutrophils # (auto) 8.82 K/uL (1.40-6.50); Neutrophils % (auto) 83.5 %; Platelet Count 223 K/uL (130-400); RDW Coefficient of Variation 12.7 % (11.5-14.5); RDW Standard Deviation 37.9 fL (36.4-46.3); Red Blood Count 5.67 M/uL (4.70-6.10); White Blood Count 10.55 K/ul (4.8-10.8)
[2024-06-15] MEDS: ONDANSETRON INJ 2 MG/ML 2 ML VIAL IV STA (07:33)
[2024-06-15] MEDS: SODIUM CHLORIDE 0.9% 1,000 ML IV ONE (07:33)
[2024-06-15 07:42] LABS: Albumin Level 4.2 gm/dl (3.4-5.0); BUN Creatinine Ratio 15.7 (10-20); Bilirubin Direct 0.2 mg/dl (0-0.2); Bilirubin,Total 1.1 mg/dl (0.2-1.0); Calcium 9.5 mg/dl (8.6-10.3); Creatinine Clr Calc Pharmacy 42.5 ml/min; Magnesium 1.8 mg/dl (1.7-2.4); Potassium 4.1 mmol/L (3.5-5.1); Total Protein 8.2 gm/dl (6.0-8.3)
[2024-06-15 07:48] LABS: Troponin I High Sensitivity 10.2 pg/ml (0-20)
[2024-06-15 07:56] LABS: INR 4.6 (0.9-1.1); Partial Thromboplastin Ratio 1.6; Partial Thromboplastin Time 44 Seconds (21-31); Prothrombin Time 43.4 Seconds (9.0-12.0)
[2024-06-15 07:57] LABS: Thyroid Stimulating Hormone 1.475 uIu/ml (0.300-4.500)
[2024-06-15] MEDS: PANTOprazole 80 MG in DEXTROSE 5% 100 ML IV STA (07:58)
--- NOTE | 2024-06-15 08:46 | CT Scan Report ---
EXAM: CT abd pelvis wo con CLINICAL HISTORY: vomiting since Thursday, now brownish emesis diffuse abdominal discomfort no BM in several days TECHNIQUE: Non-contrast CT of the abdomen and pelvis was performed, with the following protocol: axial images, and reconstructed coronal and sagittal images. One of the following dose reduction techniques was utilized for this exam: Automated exposure control, adjustment of the mA and/or kV according to patient size, and use of iterative reconstruction. COMPARISON: 02/26/2024 CT. FINDINGS: Abdomen: Liver: Normal in size, shape, and density. a 1.2cm simple cyst was noted in the right liver lobe. No focal lesions or masses were identified. Gallbladder and Biliary System: The gallbladder is surgically removed. Pancreas: Pancreatic head, body, and tail are visualized and appear normal in size and density. No pancreatic masses or calcifications were noted. Spleen: Normal in size, shape, and density. No splenic lesions or masses were identified. Kidneys and Adrenal Glands: Both kidneys are normal in size, shape, and position. Cortical thickness is within normal limits. No renal calculi or hydronephrosis. A 5.2cm simple cyst is noted on the left kidney lower pole. Adrenal glands are unremarkable. Abdominal Aorta and Vessels: Calcific intimal atheromas were noted in the mid-abdominal aorta lumen. Pelvis: Urinary Bladder: Normal in contour and wall thickness. No intraluminal lesions. Prostate: Moderate prostatomegaly. No masses or abnormal thickening. Seminal Vesicles: Normal appearance without abnormal enlargement or mass. Peritoneal and Retroperitoneal Structures: A small fat-containing hernia was noted in the linea alba in the epigastric region, the herniation neck measured 1cm, and a patchy fluid was noted in the herniation sac likely due to previous strangulation. Mild free fluid in the pelvis. No lymphadenopathy was noted. A left fat-containing inguinal hernia. Bowel: Moderate dilation of the proximal small bowel with a few air-fluid levels, no transitional point was noted, likely due to adynamic ileus Bones and Soft Tissues: Pelvic bones and soft tissues are unremarkable. No fractures or abnormal masses were identified. Bialteral pleural basal smooth thickening and calcific plaques were noted. Moderate cardiomegaly IMPRESSION: 1. Moderate dilation of the proximal small bowel with a few air-fluid levels, no transitional point was noted, likely due to adynamic ileus 2. Mild free fluid in the pelvis. 3. The rest of the findings are stable in comparison with CT on 02/26/2024. 4. A left fat-containing inguinal hernia. 5. A small fat-containing hernia was noted in the linea alba in the epigastric region, the herniation neck measured 1cm, and a patchy fluid was noted in the herniation sac likely due to previous strangulation. 6. Bialteral pleural basal smooth thickening and calcific plaques were noted. Moderate cardiomegaly 7. Calcific intimal atheromas were noted in the mid-abdominal aorta lumen. further evaluation with contrast CT is suggested if clinically warranted. 8. A 1.2cm simple cyst was noted in the right liver lobe. Electronically signed by Juan Antonio Murillo 06-15-2024 08:45 AM
--- NOTE | 2024-06-15 09:14 | History & Physical Report ---
Date of Service June 15, 2024 Assessment & Plan (1) Hematemesis: (2) Adynamic ileus: (3) Anticoagulation goal of INR 2.5 to 3.5: (4) S/P AVR: (5) Supratherapeutic INR: Plan Mr. White is a 74 year old gentleman with medical history of persistent a fib, aortic dissection s/p root and valve repair, chronic anticoagulation iso mechanical valve, complex partial seizures, BPH admitted for reports of hematemesis and ileus. #Emesis, reported as hematemesis #Adynamic ileus CT with Moderate dilation of the proximal small bowel with a few air-fluid levels, no transitional point was noted, likely due to adynamic ileus Hgb stable on admission PPI drip IVF Bowel Rest Repeat HH this afternoon Transfuse <8 iso multiple cardiac issues and calcifications noted on imaging (high risk for atherosclerotic/ischemic disease) GI consult placed NG tube if nausea and vomiting persists If pain or progression, consult GS #General weakness Orthostatic vital signs PT/OT reports dizziness upon standing, hold flomax #Supratherapeutic INR #Persistent A Fib INR on admission 4.6 Continue metoprolol succinate if tolerated po hold warfarin anticoagulation goal INR 2.5-3.5 avoiding reversal of INR at this time iso mechanical valve, will see how downtr ends INR in am #s/p aortic valve root and conduit repair with mechanical valve #Type 1 Dissection aortic 2000 #Congenital bicuspid valve hold warfarin anticoagulation goal INR 2.5-3.5 #COPD as needed inhaler at home CTM #BPH #History of nephrolithiasis continue Proscar hold flomax given report of orthostasis #Partial complex seizure #Depression Continued on keppra 2000mg--IV while not able to tolerate po Seroquel 300mg qhs when able to take po monitor for agitation #CKD Stable renal function at this time #Abnormal CT ab/p -follow up OP for Calcific intimal atheromas were noted in the mid-abdominal aorta lumen. further evaluation with contrast CT is suggested if clinically warranted. DVT ppx held iso supratherapeutic INR and c/f ?hematemesis Full code Med Tele Admission and Anticipated Discharge Date Admission Date: Time spent evaluating patient, direct bedside care, chart review, placing orders, interpretation of diagnostic studies, discussion with consultants, patient, and family members, as well as other required patient management activities is 75min minutes. History of Present Illness Chief Complaint: Nausea Vomiting Primary Care Provider: Mir Street MD Mr. White is a 74 year old gentleman with medical history of persistent a fib, aortic dissection s/p root and valve repair, chronic anticoagulation iso mechanical valve, complex partial seizures, BPH presented to [facility] ED due to hematemesis and abdominal bloat. Reports usually going to the bathroom daily, but states that he hasn't gone in may be 3-4 days. He states that he usually does go everyday, but cannot really remember when the last time was--he also notes he doesnt talk about his bm that often. He doesn't recall any recent flatus. He states Thursday he remembers "eating cake" and it not settling well, which then has prompted multiple days of vomiting after eating or drinking. Following with OP PT due to multiple mechanical falls due to dizziness which have been more frequent over the last year. In the ED, vitals were notable for BP of 120s SBP, HR of 105, and O2 sat of mid 90s on room air Imaging revealed adynamic ileus Labs stable ED interventions: Protonix bolus Consultants: GI Patient to be admitted to [facility] or further evaluation and management of ileus and ?hematemesis Allergies Allergy/AdvReac Type Severity Reaction Status Date / Time pollen extracts Allergy Sneezing Unverified 03/16/24 22:43 JENNIFER Inhibitors AdvReac Mild cough Verified 03/25/21 12:19 Home Medications Medication Instructions Recorded Confirmed Type finasteride 5 mg tablet 5 mg PO QPM 03/25/21 06/15/24 History hydrochlorothiazide 25 mg tablet 25 mg PO 2XWK PRN Fluid Retention 03/25/21 06/15/24 History levetiracetam 500 mg tablet 2,000 mg PO QPM 03/25/21 06/15/24 History tamsulosin 0.4 mg capsule 0.4 mg PO DAILY 03/25/21 06/15/24 History warfarin 2.5 mg tablet 1.25 mg PO WK 03/08/22 06/15/24 History metoprolol succinate 50 mg 50 mg PO QPM 02/26/24 06/15/24 History tablet,extended release 24 hr quetiapine 300 mg tablet 300 mg PO HS 02/26/24 06/15/24 History warfarin 2.5 mg tablet 2.5 mg PO 6XWK 06/15/24 06/15/24 History Past Med/Surg History Problem List (Updated 06/15/24 @ 15:56 by Melva Cummings MD) Anticoagulation goal of INR 2.5 to 3.5 Adynamic ileus Hematemesis Atrial flutter (Chronic) Anxiety (Chronic) HTN (hypertension) (Chronic) Mood disorder due to a general medical condition Epistaxis Depression (Chronic) JENNIFER inhibitor intolerance (Chronic) Medical History Anxiety Atrial flutter History of aortic dissection HTN (hypertension) Mood disorder due to a general medical condition Partial seizure disorder Surgical History S/P AVR "1999" Family History Other Family history non-contributory Social History Smoking Status: Never smoker Tobacco Type: Cigarettes Preferred Language: Japanese Feels Safe at Home: Yes Review of Systems Review of Systems: Constitutional: (-) fever/chills, (-) recent loss of weight, (-) appetite changes, (-) night sweats. Head: (-) headache, (+) dizziness. Eye: (-) blurring of vision, (-) double vision, (-) redness. Ear: (-) hearing loss, (-) discharge, (-) vertigo Nose: (-) discharge, (-) bleeding, (-) congestion, (-) post nasal drip. Throat: (-) sore throat, (-) hoarseness of voice, (-) odynophagia. Cardiovascular: (-) chest pain, (-) palpitations, (-) syncope, (-) orthopnea, (- ) PND, (-) leg swelling. Respiratory: (-) shortness of breath, (-) cough, (-) wheezing, (-) hemoptysis. Neuro: (-) weakness in extremities, (-) numbness, (-) tingling, (-) tremor. Gastrointestinal: (++) belly pain, (++) belly distension, (++) nausea, (++) vomiting, (-) diarrhea, (++) constipation, , (++) hematemesis, (-) hematochezia, (-) bowel incontinence Genitourinary: (-) hematuria, (-) dysuria, (-) polyuria, (-) hesitancy, (-) fr equency, (-) urinary incontinence. Musculoskeletal: (-) myalgia, (-) arthralgia. Skin: (-) rashes. Endocrine: (-) heat/cold intolerance. Psychiatry: (-) depression, (-) hallucination. Physical Exam Physical Exam: GENERAL APPEARANCE: AxOx4, uncomfortable appearing gentleman HEENT: NC, AT. MMM. EOMI, clear conjunctiva, oropharynx clear. NECK: Supple without lymphadenopathy. No stiffness or restricted ROM. HEART: irregularly irregular LUNGS: CTAB, moving air well. No crackles or wheezes are heard. ABDOMEN: tympanic, BS+ BACK: No CVAT, no obvious deformity. EXTREMITIES: Without cyanosis, clubbing or edema. NEUROLOGICAL: Grossly nonfocal. Alert and oriented, moving all 4 extremities. Skin: Warm and dry without any rash. Results & Data Results & Data Vital Signs (Past 12 Hours) Vital Signs Temp Pulse Pulse Resp BP BP Pulse Ox 06/15/24 08:17 106 H 06/15/24 07:20 106 H 22 126/98 94 06/15/24 06:46 36.8 C 105 H 20 157/93 H 98 O2 Del Method 06/15/24 08:17 06/15/24 07:20 06/15/24 06:46 Room Air Laboratory Results Short CBC 06/15/24 Range/Units 07:12 WBC 10.55 (4.8-10.8) K/ul Hgb 16.0 (14.0-18.0) g/dl Hct 46.9 (42.0-52.0) % Plt Count 223 (130-400) K/uL BMP 06/15/24 07:12 Sodium 138 Potassium 4.1 Chloride 98 Carbon Dioxide 28 BUN 27 H Creatinine 1.72 H Glucose 177 H Calcium 9.5 Liver Function 06/15/24 Range/Units 07:12 Total Bilirubin 1.1 H (0.2-1.0) mg/dl Direct Bilirubin 0.2 (0-0.2) mg/dl AST 26 (13-39) U/L ALT 17 (7-52) U/L Alkaline Phosphatase 93 (34-104) U/L Albumin 4.2 (3.4-5.0) gm/dl Diagnostic Findings Abdomen/Pelvis CT 06/15/24 07:05 EXAM: CT abd pelvis wo con CLINICAL HISTORY: vomiting since Thursday, now brownish emesis diffuse abdominal discomfort no BM in several days TECHNIQUE: Non-contrast CT of the abdomen and pelvis was performed, with the following protocol: axial images, and reconstructed coronal and sagittal images. One of the following dose reduction techniques was utilized for this exam: Automated exposure control, adjustment of the mA and/or kV according to patient size, and use of iterative reconstruction. COMPARISON: 02/26/2024 CT. FINDINGS: Abdomen: Liver: Normal in size, shape, and density. a 1.2cm simple cyst was noted in the right liver lobe. No focal lesions or masses were identified. Gallbladder and Biliary System: The gallbladder is surgically removed. Pancreas: Pancreatic head, body, and tail are visualized and appear normal in size and density. No pancreatic masses or calcifications were noted. Spleen: Normal in size, shape, and density. No splenic lesions or masses were identified. Kidneys and Adrenal Glands: Both kidneys are normal in size, shape, and position. Cortical thickness is within normal limits. No renal calculi or hydronephrosis. A 5.2cm simple cyst is noted on the left kidney lower pole. Adrenal glands are unremarkable. Abdominal Aorta and Vessels: Calcific intimal atheromas were noted in the mid-abdominal aorta lumen. Pelvis: Urinary Bladder: Normal in contour and wall thickness. No intraluminal lesions. Prostate: Moderate prostatomegaly. No masses or abnormal thickening. Seminal Vesicles: Normal appearance without abnormal enlargement or mass. Peritoneal and Retroperitoneal Structures: A small fat-containing hernia was noted in the linea alba in the epigastric region, the herniation neck measured 1cm, and a patchy fluid was noted in the herniation sac likely due to previous strangulation. Mild free fluid in the pelvis. No lymphadenopathy was noted. A left fat-containing inguinal hernia. Bowel: Moderate dilation of the proximal small bowel with a few air-fluid levels, no transitional point was noted, likely due to adynamic ileus Bones and Soft Tissues: Pelvic bones and soft tissues are unremarkable. No fractures or abnormal masses were identified. Bialteral pleural basal smooth thickening and calcific plaques were noted. Moderate cardiomegaly IMPRESSION: 1. Moderate dilation of the proximal small bowel with a few air-fluid levels, no transitional point was noted, likely due to adynamic ileus 2. Mild free fluid in the pelvis. 3. The rest of the findings are stable in comparison with CT on 02/26/2024. 4. A left fat-containing inguinal hernia. 5. A small fat-containing hernia was noted in the linea alba in the epigastric region, the herniation neck measured 1cm, and a patchy fluid was noted in the herniation sac likely due to previous strangulation. 6. Bialteral pleural basal smooth thickening and calcific plaques were noted. Moderate cardiomegaly 7. Calcific intimal atheromas were noted in the mid-abdominal aorta lumen. further evaluation with contrast CT is suggested if clinically warranted. 8. A 1.2cm simple cyst was noted in the right liver lobe. Electronically signed by Juan Antonio Murillo 06-15-2024 08:45 AM Medications Administered Home Medications Medication Instructions Recorded Confirmed Last Taken finasteride 5 mg tablet 5 mg PO QPM 03/25/21 06/15/24 06/12/24 hydrochlorothiazide 25 mg tablet 25 mg PO 2XWK PRN Fluid Retention 03/25/21 06/15/24 03/24/21 levetiracetam 500 mg tablet 2,000 mg PO QPM 03/25/21 06/15/24 06/13/24 tamsulosin 0.4 mg capsule 0.4 mg PO DAILY 03/25/21 06/15/24 06/12/24 warfarin 2.5 mg tablet 1.25 mg PO WK 03/08/22 06/15/24 06/13/24 metoprolol succinate 50 mg 50 mg PO QPM 02/26/24 06/15/24 06/14/24 tablet,extended release 24 hr quetiapine 300 mg tablet 300 mg PO HS 02/26/24 06/15/24 06/14/24 warfarin 2.5 mg tablet 2.5 mg PO 6XWK 06/15/24 06/15/24 06/14/24
[2024-06-15] MEDS ORDERED: PANTOPRAZOLE BOLUS/DRIP IV STA (09:24)
[2024-06-15] MEDS: SODIUM CHLORIDE 0.9% 1,000 ML IV SCH (10:42)
[2024-06-15] MEDS: PANTOprazole 40 MG in DEXTROSE 5% MINI-B 100 ML IV SCH (10:42)
[2024-06-15 19:53] LABS: Hematocrit (blood only) 40.7 % (42.0-52.0); Hemoglobin 14.2 g/dl (14.0-18.0)
[2024-06-15] MEDS: METOPROLOL SUCC 50MG EXT REL TAB PO SCH (20:27)
[2024-06-15] MEDS: QUEtiapine FUMARATE 300 MG TABLET PO SCH (20:27)
[2024-06-15] MEDS ORDERED: levETIRAcetam 500 MG/5 ML VIAL IV SCH (23:00)
--- NOTE | 2024-06-15 23:01 | Electrocardiogram Report ---
Test Reason : Blood Pressure : */* mmHG Vent. Rate : 114 BPM Atrial Rate : * BPM P-R Int : * ms QRS Dur : 70 ms QT Int : 328 ms P-R-T Axes : * 32 118 degrees QTcB Int : 452 ms Atrial fibrillation with rapid ventricular response with premature ventricular or aberrantly conducte d complexes Abnormal ECG When compared with ECG of 16-Mar-2024 17:36, Inverted T waves have replaced nonspecific T wave abnormality in Lateral leads Confirmed by Len Miller ([id number]) on 06/15/2024 11:00:50 PM Referred By: REFERRED SELF Confirmed By: Len Miller
[2024-06-15] MEDS: levETIRAcetam 250 MG TAB PO SCH (23:10)
[2024-06-16 05:34] LABS: Appearance Urine Clear (Clear); Bacteria Urine Automated None Seen (None Seen); Bilirubin Urine 1+ (Negative); Blood Urine Negative (Negative); Cast Urine Automated 0-2 /lpf (0-2); Color Urine Dark Yellow; Epithelial Cell Urine Auto 0-2 /hpf (0-2); Glucose Urine UA Negative (Negative); Ketones Urine Trace (Negative); Leukocyte Esterase Urine Negative (Negative); Nitrite Urine Negative (Negative); Protein Urine Trace (Negative); RBC Urine Automated 0-2 /hpf (0-2); Specific Gravity Urine 1.026 (1.000-1.030); Urobilinogen Urine Negative (Negative); WBC Urine Automated 0-5 /hpf (0-5); pH Urine 5.5 (4.5-7.5)
--- NOTE | 2024-06-16 10:25 | Surgery Consultation ---
Date of Consultation June 16, 2024 Assessment & Plan (1) Ileus: (2) Elevated INR: (3) Hematemesis: 74 yo male on Coumadin presented to ED with nausea and vomiting for a few days. CT scan with possible ileus. Supratherapeutic INR. History of GI bleed. NO abdominal pain and now having bowel function. Epigastric hernia containing fat, no bowel. Abdomen soft, nondistended, mildly tender at epigastric hernia site but no generalized abdominal tenderness on examination. No acute surgical intervention required at this time. Can consider outpatient surgery evaluation for epigastric hernia repair if persistently symptomatic. Continue medical management. Okay for clear liquids from surgical standpoint. Discussed with Dr. Goode who has seen and examined patient. History of Present Illness Reason for Consultation: Dilated small bowel, epigastric hernia Requesting Physician: Dr. Barney Attending Physician: Meg Gibbs MD History of Present Illness Mr. White is a 74 yo male with history of a flutter, HTN, aortic dissection, a/p AVR, GI bleed, who presented to ED with complaint of nausea and vomiting for a few days. Vomiting turned dark coffee ground like . He has history of supratherapeutic INR on Coumadin and was found to have elevated INR. CT scan showing moderately dilated proximal small bowel loops with no clear transition suggesting ileus. Patient states he was not having any abdominal pain with the nausea and vomiting. No fevers or chills. No bowel movement for 3-4 days. Currently states he is feeling better, no further nausea or vomiting. Had bowel movement and is passing flatus. No abdominal pain. States he knows he has a hernia in upper abdomen and has chronic bulge in area but this did not change with the episodes of nausea or vomiting. tender when pressed on. Allergies Allergy/AdvReac Type Severity Reaction Status Date / Time pollen extracts Allergy Sneezing Unverified 03/16/24 22:43 JENNIFER Inhibitors AdvReac Mild cough Verified 03/25/21 12:19 Home Medications Medication Instructions Recorded Confirmed Type finasteride 5 mg tablet 5 mg PO QPM 03/25/21 06/15/24 History hydrochlorothiazide 25 mg tablet 25 mg PO 2XWK PRN Fluid Retention 03/25/21 06/15/24 History levetiracetam 500 mg tablet 2,000 mg PO QPM 03/25/21 06/15/24 History tamsulosin 0.4 mg capsule 0.4 mg PO DAILY 03/25/21 06/15/24 History warfarin 2.5 mg tablet 1.25 mg PO WK 03/08/22 06/15/24 History metoprolol succinate 50 mg 50 mg PO QPM 02/26/24 06/15/24 History tablet,extended release 24 hr quetiapine 300 mg tablet 300 mg PO HS 02/26/24 06/15/24 History warfarin 2.5 mg tablet 2.5 mg PO 6XWK 06/15/24 06/15/24 History Patient History Medical History Partial seizure disorder Family History Other Family history non-contributory Social History Smoking Status: Never smoker Tobacco Type: Cigarettes Hx Alcohol Use: Yes Hx Substance Use: No Preferred Language: Japanese Communication Ability: Effective Senior Director Insight Required: No Beliefs That Will Affect Care: None Current Living Situation: Spouse Other Information That Helps Us Care for You: No Feels Safe at Home: Yes Safety Concerns: Feels Safe At This Time Assistive Devices: None Review of Systems Review of Systems: All systems reviewed & are unremarkable except as noted in HPI & below Physical Exam Constitutional: WD/WN, vitals as above cooperative and comfortable; no acute distress and not ill appearing Respiratory: normal respiratory effort; no respiratory distress and no labored breathing Gastrointestinal (Abdomen): Inspection/Auscultation: abdomen normal to inspection and + abdominal surgical scar (laparoscopic scars); abdomen not distended Percussion/Palpation: + abdomen tender (at epigastric hernia), abdomen soft and + hernia (epigastric hernia); no guarding, abdomen not rigid and abdomen not firm Skin: no rashes, warm and dry Psychiatric: Orientation: alert and oriented x 3 Results & Data Vital Signs (Past 12 Hours) Vital Signs Temp Pulse Resp BP Pulse Ox O2 Del Method 06/16/24 07:44 37.0 C 92 H 20 120/75 94 Room Air 06/16/24 02:23 36.4 C L 90 18 121/77 95 Room Air 06/15/24 22:52 Room Air 06/15/24 22:33 36.6 C 98 H 20 92/58 L 94 Room Air Laboratory Results 06/16/24 06/15/24 Range/Units 05:15 19:22 Hgb 14.2 (14.0-18.0) g/dl Hct 40.7 L (42.0-52.0) % Urine Color Dark Yellow Urine Appearance Clear (Clear) Urine pH 5.5 (4.5-7.5) Ur Specific [place] 1.026 (1.000-1.030) Urine Protein Trace H (Negative) Urine Glucose (UA) Negative (Negative) Urine Ketones Trace H (Negative) Urine Blood Negative (Negative) Urine Nitrite Negative (Negative) Urine Bilirubin 1+ H (Negative) Urine Urobilinogen Negative (Negative) Ur Leukocyte Esterase Negative (Negative) Urine WBC (Auto) 0-5 (0-5) /hpf Urine RBC (Auto) 0-2 (0-2) /hpf U Hyaline Cast (Auto) 0-2 (0-2) /lpf U Epithel Cells (Auto) 0-2 (0-2) /hpf Urine Bacteria (Auto) None Seen (None Seen) Diagnostic Findings EXAM: CT abd pelvis wo con CLINICAL HISTORY: vomiting since Thursday, now brownish emesis diffuse abdominal discomfort no BM in several days TECHNIQUE: Non-contrast CT of the abdomen and pelvis was performed, with the following protocol: axial images, and reconstructed coronal and sagittal images. One of the following dose reduction techniques was utilized for this exam: Automated exposure control, adjustment of the mA and/or kV according to patient size, and use of iterative reconstruction. COMPARISON: 02/26/2024 CT. FINDINGS: Abdomen: Liver: Normal in size, shape, and density. a 1.2cm simple cyst was noted in the right liver lobe. No focal lesions or masses were identified. Gallbladder and Biliary System: The gallbladder is surgically removed. Pancreas: Pancreatic head, body, and tail are visualized and appear normal in size and density. No pancreatic masses or calcifications were noted. Spleen: Normal in size, shape, and density. No splenic lesions or masses were identified. Kidneys and Adrenal Glands: Both kidneys are normal in size, shape, and position. Cortical thickness is within normal limits. No renal calculi or hydronephrosis. A 5.2cm simple cyst is noted on the left kidney lower pole. Adrenal glands are unremarkable. Abdominal Aorta and Vessels: Calcific intimal atheromas were noted in the mid-abdominal aorta lumen. Pelvis: Urinary Bladder: Normal in contour and wall thickness. No intraluminal lesions. Prostate: Moderate prostatomegaly. No masses or abnormal thickening. Seminal Vesicles: Normal appearance without abnormal enlargement or mass. Peritoneal and Retroperitoneal Structures: A small fat-containing hernia was noted in the linea alba in the epigastric region, the herniation neck measured 1cm, and a patchy fluid was noted in the herniation sac likely due to previous strangulation. Mild free fluid in the pelvis. No lymphadenopathy was noted. A left fat-containing inguinal hernia. Bowel: Moderate dilation of the proximal small bowel with a few air-fluid levels, no transitional point was noted, likely due to adynamic ileus Bones and Soft Tissues: Pelvic bones and soft tissues are unremarkable. No fractures or abnormal masses were identified. Bialteral pleural basal smooth thickening and calcific plaques were noted. Moderate cardiomegaly IMPRESSION: 1. Moderate dilation of the proximal small bowel with a few air-fluid levels, no transitional point was noted, likely due to adynamic ileus 2. Mild free fluid in the pelvis. 3. The rest of the findings are stable in comparison with CT on 02/26/2024. 4. A left fat-containing inguinal hernia. 5. A small fat-containing hernia was noted in the linea alba in the epigastric region, the herniation neck measured 1cm, and a patchy fluid was noted in the herniation sac likely due to previous strangulation. 6. Bialteral pleural basal smooth thickening and calcific plaques were noted. Moderate cardiomegaly 7. Calcific intimal atheromas were noted in the mid-abdominal aorta lumen. further evaluation with contrast CT is suggested if clinically warranted. 8. A 1.2cm simple cyst was noted in the right liver lobe.
--- NOTE | 2024-06-16 11:03 | XRay Report ---
XR abdomen 2V w PA chest CLINICAL HISTORY: small bowel obstruction TECHNIQUE: 2 views of the abdomen were obtained. A single view of the chest was obtained. Comparison: Comparison is made to chest radiograph 03/08/[address] abdomen pelvis 06/15/2024 FINDINGS: Median sternotomy wires are unchanged. Cardiomegaly is noted. The lungs are clear. No evidence of ple ural effusion or pneumothorax. The osseous structures are grossly unremarkable. Multiple gas dilated loops of small bowel measure up to 58 mm. Small stool burden is seen. IMPRESSION: Findings compatible with small bowel obstruction. ACT 112: Negative or not required by law. Electronically signed by: Chip Jordan M.D. 06/16/2024 11:01 AM
[2024-06-16] MEDS: SODIUM CHLORIDE 0.9% 1,000 ML IV SCH (11:33)
[2024-06-16 12:19] LABS: Hematocrit (blood only) 41.9 % (42.0-52.0); Mean Corpuscular Hemoglobin 28.8 pg (25.0-34.0); Mean Corpuscular Hgb Conc 33.4 g/dL (32.0-36.0); Mean Corpuscular Volume 86.2 fL (80.0-100.0); Mean Platelet Volume 9.9 fL (9.4-12.4); Platelet Count 143 K/uL (130-400); RDW Coefficient of Variation 12.9 % (11.5-14.5); RDW Standard Deviation 39.8 fL (36.4-46.3); Red Blood Count 4.86 M/uL (4.70-6.10); White Blood Count 6.89 K/ul (4.8-10.8)
[2024-06-16 12:41] LABS: Albumin Globulin Ratio 1.1 (0.9-2); Albumin Level 3.7 gm/dl (3.4-5.0); BUN Creatinine Ratio 13.5 (10-20); Bilirubin,Total 0.9 mg/dl (0.2-1.0); Calcium 8.6 mg/dl (8.6-10.3); Globulin 3.4 gm/dl (2.5-4.0); Magnesium 1.7 mg/dl (1.7-2.4); Phosphorus 2.1 mg/dl (2.5-4.9); Potassium 3.9 mmol/L (3.5-5.1); Total Protein 7.1 gm/dl (6.0-8.3)
[2024-06-16 12:44] LABS: INR 2.7 (0.9-1.1); Prothrombin Time 26.5 Seconds (9.0-12.0)
[2024-06-16] MEDS ORDERED: POTASSIUM PHOS 3 MMOL/1 ML INFUSION IV STA (14:05)
--- NOTE | 2024-06-16 14:28 | Gastrointestinal Consultation ---
Date of Consultation June 16, 2024 Assessment & Plan (1) Hematemesis: Patient with SBO/ileus and forceful emesis. -IV Protonix 40 mg BID -Continue to monitor for any overt GI bleeding -No endoscopic plans at this time (2) Ileus: -General surgery consult appreciated; continue to monitor conservatively Supervising Physician Co-Signing Physician Notes Reviewed with nurse practitioner. Reviewed notes above and in agreement. We reviewed surgical consultation note. Reviewed x-rays which CT would suggest possible proximal small bowel obstruction versus adynamic ileus. Patient has a midline hernia with fat within it. He is tender here I cannot reduce the fat hernia. There are no major goal surgical scars over the abdomen though he has had cardiac surgery and inguinal hernia repairs small bowel obstruction for adhesions on the differential He has had no further vomiting. Follow his ileus or small bowel obstruction at present. Surgery follow-up in regards to his hernia. Try liquids History of Present Illness Reason for Consultation: Coffee ground emesis Attending Physician: Mge Gibbs MD History of Present Illness Patient is a 74 yo male with history of a flutter, HTN, aortic dissection, a/p AVR on anticoagulation with Coumadin, who presented to ED with complaint of nausea and vomiting ongoing for several days. He notes that he vomited forcefully and emesis then appeared dark. He has history of supratherapeutic INR on Coumadin and was found to have elevated INR at 4.6 now down to 2.7. CT scan showing moderately dilated proximal small bowel loops with no clear transition suggesting ileus. Patient states he was not having any abdominal pain with the nausea and vomiting but now is having tenderness to palpation of the abdomen. He has had an episode of incontinence today. Currently states he is feeling better, no further nausea or vomiting. He has a known hernia in upper abdomen and has chronic bulge in area but this did not change with the episodes of nausea or vomiting. Patient denies melena, hematemesis, hematochezia. He's unsure of his EGD/colonoscopy history. No further episodes of Coffee ground emesis. H/H 14.0/41.9. Allergies Allergy/AdvReac Type Severity Reaction Status Date / Time pollen extracts Allergy Sneezing Unverified 03/16/24 22:43 JENNIFER Inhibitors AdvReac Mild cough Verified 03/25/21 12:19 Home Medications Medication Instructions Recorded Confirmed Type finasteride 5 mg tablet 5 mg PO QPM 03/25/21 06/15/24 History hydrochlorothiazide 25 mg tablet 25 mg PO [id number] PRN Fluid Retention 03/25/21 06/15/24 History levetiracetam 500 mg tablet 2,000 mg PO QPM 03/25/21 06/15/24 History tamsulosin 0.4 mg capsule 0.4 mg PO DAILY 03/25/21 06/15/24 History warfarin 2.5 mg tablet 1.25 mg PO WK 03/08/22 06/15/24 History metoprolol succinate 50 mg 50 mg PO QPM 02/26/24 06/15/24 History tablet,extended release 24 hr quetiapine 300 mg tablet 300 mg PO HS 02/26/24 06/15/24 History warfarin 2.5 mg tablet 2.5 mg PO [id number] 06/15/24 06/15/24 History Patient History Medical History Partial seizure disorder Family History Other Family history non-contributory Social History Smoking Status: Never smoker Tobacco Type: Cigarettes Hx Alcohol Use: Yes Hx Substance Use: No Preferred Language: Yoruba Communication Ability: Effective Food Processing Chemist Required: No Beliefs That Will Affect Care: None Current Living Situation: Spouse Other Information That Helps Us Care for You: No Feels Safe at Home: Yes Safety Concerns: Feels Safe At This Time Assistive Devices: None Review of Systems Constitutional: no fever and no chills Gastrointestinal: + abdominal pain and + fecal incontinenc e; no nausea, no vomiting and no blood in stools Physical Exam Constitutional: well developed Respiratory: normal respiratory effort Cardiovascular: valve click Gastrointestinal (Abdomen): +abdominal hernia, epigastric tenderness Results & Data Vital Signs (Past 12 Hours) Vital Signs Temp Pulse Pulse Resp BP Pulse Ox O2 Del Method 06/16/24 13:01 88 06/16/24 11:43 36.6 C 89 20 129/81 95 Room Air 06/16/24 07:44 37.0 C 92 H 20 120/75 94 Room Air PG Care Time/CCT Total # of Minutes Spent Total Time Spent with Patient: Total time spent is greater than 50% in coordination of care (as documented) at patient's floor/unit and/or counseling patient: Coding Level of Care Code 71154 INT INP/OBS CARE 3/75MIN Diagnoses Hematemesis K92.0 Ileus K56.7
[2024-06-16] MEDS: POTASSIUM PHOSPHATE 21 MMOL in SODIUM CHLORIDE 0.9% 500 ML IV ONE (14:35)
--- NOTE | 2024-06-16 15:42 | Hospitalist Progress Note ---
Date of Service June 16, 2024 Assessment & Plan (1) Hematemesis: Plan: Reported to have hematemesis but in fact he does emesis No more nausea and/or vomiting (2) Adynamic ileus: Plan: Small bowel obstruction as of recent x-ray findings and CT of the abdomen pelvis report Appreciate surgery input and recommendation Will keep him n.p.o. and intravenous fluid replacement CT with Moderate dilation of the proximal small bowel with a few air-fluid levels, no transitional point was noted, likely due to adynamic ileus PPI drip IVF and will replace electrolytes and monitor intake output Bowel Rest Appreciate surgery input and recommendation Appreciate GI input and recommendation (3) Anticoagulation goal of INR 2.5 to 3.5: (4) S/P AVR: Plan: #s/p aortic valve root and conduit repair with mechanical valve #Type 1 Dissection aortic 2000 #Congenital bicuspid valve hold warfarin anticoagulation goal INR 2.5-3.5 (5) Supratherapeutic INR: Plan: #Supratherapeutic INR #Persistent A Fib INR on admission 4.6 Continue metoprolol succinate if tolerated po hold warfarin anticoagulation goal INR 2.5-3.5 avoiding reversal of INR at this time iso mechanical valve, will see how downtrends INR in am - minimally elevated at 2.7.Hold Coumadin Will not give any vitamin K as no evidence of bleeding Plan Mr. White is a 74 year old gentleman with medical history of persistent a fib, aortic dissection s/p root and valve repair, chronic anticoagulation iso mechanical valve, complex partial seizures, BPH admitted for reports of hematemesis and ileus. 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 further evaluation with contrast CT is suggested if clinically warranted. DVT ppx held iso supratherapeutic INR and c/f ?hematemesis Full code Med Tele Admission and Anticipated Discharge Date Admission Date: June 15, 2024 Subjective 06/16/2024 The patient was seen and examined in medical telemetry unit He has been complaining of abdominal discomfort with distention but denies any more nausea and/or vomiting denies any significant abdominal pain and wants to have food Review of Systems Review of Systems: All systems reviewed and are unremarkable except as noted below Physical Exam Physical Exam: Lying in bed without any acute distress Constitutional: well developed, well nourished, + ill appearing and + obese Eyes: PERRL, conjunctivae normal, anicteric sclerae ENMT: external ear and nose normal, oropharynx normal Neck: trachea midline, no thyromegaly Respiratory: no respiratory distress Auscultation: lungs clear to auscultation bilaterally Cardiovascular: Rate/Rhythm: regular rate and regular rhythm; not tachycardic Heart Sounds: normal S1 and normal S2; no murmur Extremities: no edema Gastrointestinal (Abdomen): Inspection/Auscultation: + abdomen distended; + abnormal bowel sounds Percussion/Palpation: + abdomen tender ( mildly tender all over) and abdomen soft Musculoskeletal: No acute arthritis involving any of the joint Neurologic: normal touch/pain/proprioception and moves all extremities; no focal motor deficits Lymphatic: no cervical or axillary lymphadenopathy Results & Data Results & Data Vital Signs (Past 12 Hours) Vital Signs Temp Pulse Pulse Resp BP Pulse Ox O2 Del Method 06/16/24 13:01 88 06/16/24 11:43 36.6 C 89 20 129/81 95 Room Air 06/16/24 07:44 37.0 C 92 H 20 120/75 94 Room Air Laboratory Results Short CBC 06/15/24 06/16/24 Range/Units 19:22 11:58 WBC 6.89 (4.8-10.8) K/ul Hgb 14.2 14.0 (14.0-18.0) g/dl Hct 40.7 L 41.9 L (42.0-52.0) % Plt Count 143 (130-400) K/uL BMP 06/16/24 11:58 Sodium 139 Potassium 3.9 Chloride 106 Carbon Dioxide 27 BUN 21 Creatinine 1.56 H Glucose 89 Calcium 8.6 Liver Function 06/16/24 Range/Units 11:58 Total Bilirubin 0.9 (0.2-1.0) mg/dl AST 25 (13-39) U/L ALT 21 (7-52) U/L Alkaline Phosphatase 74 (34-104) U/L Albumin 3.7 (3.4-5.0) gm/dl Urine 06/16/24 Range/Units 05:15 Urine Color Dark Yellow Urine Appearance Clear (Clear) Urine pH 5.5 (4.5-7.5) Ur Specific [place] 1.026 (1.000-1.030) Urine Protein Trace H (Negative) Urine Glucose (UA) Negative (Negative) Medications Administered Current Inpatient Medications Acetaminophen (Acetaminophen 325 Mg Tab) 650 mg PO Q4H PRN PRN Reason: Pain or Fever Stop: 07/15/24 11:50 Pantoprazole Sodium 40 mg/ (Dextrose) 100 mls @ 20 mls/hr IV Q5H [facility] Stop: 07/15/24 09:29 Last Admin: 06/16/24 11:38 Dose: 8 mg/hr, 20 mls/hr Sodium Chloride (Nss) 1,000 mls @ 125 mls/hr IV .Q8H [facility] Stop: 06/17/24 11:29 Last Admin: 06/16/24 11:33 Dose: 125 mls/hr Potassium Phosphate 21 mmol/ (Sodium Chloride) 507 mls @ 88 mls/hr IV ONE ONE Stop: 06/16/24 20:15 Last Admin: 06/16/24 14:35 Dose: 88 mls/hr Levetiracetam (Levetiracetam 250 Mg Tab) 750 mg PO Q12H [facility] Stop: 07/15/24 22:59 Last Admin: 06/16/24 11:36 Dose: 750 mg Metoprolol Succinate (Metoprolol Succ 50mg Ext Rel Tab) 50 mg PO QPM [facility] Stop: 07/15/24 20:59 Last Admin: 06/15/24 20:27 Dose: 50 mg Quetiapine Fumarate (Quetiapine Fumarate 300 Mg Tablet) 300 mg PO HS [facility] Stop: 07/15/24 20:59 Last Admin: 06/15/24 20:27 Dose: 300 mg
[2024-06-17 06:01] LABS: Hematocrit (blood only) 35.3 % (42.0-52.0); Hemoglobin 11.5 g/dl (14.0-18.0); Mean Corpuscular Hemoglobin 28.1 pg (25.0-34.0); Mean Corpuscular Hgb Conc 32.6 g/dL (32.0-36.0); Mean Corpuscular Volume 86.3 fL (80.0-100.0); Platelet Count 146 K/uL (130-400); RDW Coefficient of Variation 12.6 % (11.5-14.5); RDW Standard Deviation 39.7 fL (36.4-46.3); Red Blood Count 4.09 M/uL (4.70-6.10); White Blood Count 6.59 K/ul (4.8-10.8)
--- NOTE | 2024-06-17 08:55 | Surgery Progress Note ---
<Statement entered by Shivam Latham DO - 06/17/24 10:21> I have seen and examined this patient this am. I agree with this plan. He may try full liquids. Date of Service June 17, 2024 Assessment & Plan (1) Ileus: Plan: pt denies abd pain, n/v , tolerating clears +bm and flatus vss KUB ordered for this am , not taken yet ok to advance to full liquids for lunch if tolerates breakfast Admission and Anticipated Discharge Date Admission Date: June 15, 2024 Subjective pt denies abd pain , n/v +flatus +bm Review of Systems Constitutional: no fever and no chills Respiratory: no dyspnea Cardiovascular: no chest pain Gastrointestinal: no abdominal pain, no nausea and no vomiting Physical Exam Constitutional: cooperative and comfortable; no acute distress Respiratory: normal respiratory effort; no respiratory distress Cardiovascular: Rate/Rhythm: regular rate Gastrointestinal (Abdomen): Inspection/Auscultation: + abdomen distended Percussion/Palpation: abdomen soft; abdomen nontender Results & Data Vital Signs (Past 12 Hours) Vital Signs Temp Pulse Pulse Resp BP BP Pulse Ox 06/17/24 07:40 97.7 F 82 18 151/79 H 95 06/17/24 07:25 06/17/24 03:24 97.5 F L 88 18 145/89 H 97 06/16/24 21:54 95 H 06/16/24 21:52 97.7 F 102 H 16 120/73 95 06/16/24 21:43 O2 Del Method 06/17/24 07:40 Room Air 06/17/24 07:25 Room Air 06/17/24 03:24 Room Air 06/16/24 21:54 06/16/24 21:52 Room Air 06/16/24 21:43 Room Air PG Care Time/CCT Total # of Minutes Spent Total Time Spent with Patient: Total time spent is greater than 50% in coordination of care (as documented) at patient's floor/unit and/or counseling patient: Coding Level of Care Code 93430 SUB INP/OBS CARE 07/09MIN Diagnoses Ileus K56.7
[2024-06-17 09:36] LABS: BUN Creatinine Ratio 12.6 (10-20); Calcium 7.9 mg/dl (8.6-10.3); Magnesium 1.6 mg/dl (1.7-2.4); Potassium 3.8 mmol/L (3.5-5.1)
--- NOTE | 2024-06-17 09:52 | XRay Report ---
XR KUB/Abdomen 1 view CLINICAL HISTORY: Ileus, small bowel obstruction TECHNIQUE: 1 view of the abdomen was obtained. Comparison: Comparison is made to chest and abdomen radiographs 06/16/2024 FINDINGS: Lung bases are unremarkable. Degenerative changes are seen in the visualized skeleton. Gas dilated lo ops of small bowel measure up to 47 mm. Small stool burden is seen. IMPRESSION: Findings compatible with continuing ileus versus small bowel obstruction. ACT 112: Negative or not required by law. Electronically signed by: Chip Jordan M.D. 06/17/2024 9:50 AM
[2024-06-17] MEDS: MAGNESIUM SULFATE / D5W 1 GM/100 ML BAG IV SCH (10:25)
--- NOTE | 2024-06-17 11:14 | Gastroenterology Progress Note ---
Date of Service June 17, 2024 Assessment & Plan (1) Ileus: Plan: -Await KUB from today -Continue per general surgery recommendations--patient is advancing to liquid diet this morning. (2) Acute upper GI bleed: Plan: -Continue PPI therapy, but could switch to 40 mg IV push as there are no ongoing concerns for upper GI bleeding since correction of his supratherapeutic INR & resolution of his vomiting. Admission and Anticipated Discharge Date Admission Date: June 15, 2024 Supervising Physician Co-Signing Physician Notes Patient feeling improved. He is having liquids. Has had diarrhea today. X-ray shows still some changes of ileus. If he does not tolerate p.o. Benefit from a CT enterography to evaluate for a transition point. Surgery following. Subjective Patient is a 74 yo male with ileus/SBO and previous concerns for "coffee ground emesis." He is eating a clear liquid diet. He is moving his bowels and passing gas. He was seen by general surgery today. He is awaiting a KUB. No further concerns for upper GI bleeding. INR pending for today. Review of Systems Gastrointestinal: no abdominal pain, no nausea and no vomiting Physical Exam Cardiovascular: mechanical valve click noted Gastrointestinal (Abdomen): Inspection/Auscultation: normal bowel sounds; abdomen not distended +hernia Results & Data Results & Data Vital Signs (Past 12 Hours) Vital Signs Temp Pulse Resp BP Pulse Ox O2 Del Method 06/17/24 07:40 36.5 C 82 18 151/79 H 95 Room Air 06/17/24 07:25 Room Air 06/17/24 03:24 36.4 C L 88 18 145/89 H 97 Room Air PG Care Time/CCT Total # of Minutes Spent Total Time Spent with Patient: Total time spent is greater than 50% in coordination of care (as documented) at patient's floor/unit and/or counseling patient: Coding Level of Care Code 53788 SUB INP/OBS CARE 2/35MIN Diagnoses Ileus K56.7 Acute upper GI bleed K92.2
[2024-06-17 13:06] LABS: INR 2.3 (0.9-1.1); Prothrombin Time 23.2 Seconds (9.0-12.0)
--- NOTE | 2024-06-17 15:48 | Hospitalist Progress Note ---
Date of Service June 17, 2024 Assessment & Plan (1) Hematemesis: Plan: Reported to have hematemesis but in fact he does emesis No more nausea and/or vomiting (2) Adynamic ileus: Plan: Small bowel obstruction as of recent x-ray findings and CT of the abdomen pelvis report Appreciate surgery input and recommendation Will keep him n.p.o. and intravenous fluid replacement CT with Moderate dilation of the proximal small bowel with a few air-fluid levels, no transitional point was noted, likely due to adynamic ileus PPI drip IVF and will replace electrolytes and monitor intake output Bowel Rest Appreciate surgery input and recommendation Appreciate GI input and recommendation Repeat KUB did not show an obstruction but did show IBS His electrolytes were replaced and his diet was elevated to full liquid If his condition is better will advance the diet to solid tomorrow and may be going home in the afternoon of 06/18/2024. (3) Anticoagulation goal of INR 2.5 to 3.5: Plan: INR is 2.3 today and restart Coumadin from this afternoon (4) S/P AVR: Plan: #s/p aortic valve root and conduit repair with mechanical valve #Type 1 Dissection aortic 1999 #Congenital bicuspid valve hold warfarin anticoagulation goal INR 2.5-3.5 (5) Supratherapeutic INR: Plan: #Supratherapeutic INR #Persistent A Fib INR on admission 4.6 Continue metoprolol succinate if tolerated po hold warfarin anticoagulation goal INR 2.5-3.5 avoiding reversal of INR at this time iso mechanical valve, will see how downtrends INR in am - minimally elevated at 2.7.Hold Coumadin Will not give any vitamin K as no evidence of bleeding Plan Mr. White is a 74 year old gentleman with medical history of persistent a fib, aortic dissection s/p root and valve repair, chronic anticoagulation iso mechanical valve, complex partial seizures, BPH admitted for reports of hematemesis and ileus. 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 further evaluation with contrast CT is suggested if clinically warranted. DVT ppx held iso supratherapeutic INR and c/f ?hematemesis Full code Med Tele Admission and Anticipated Discharge Date Admission Date: June 15, 2024 Subjective 06/16/2024 The patient was seen and examined in medical telemetry unit He has been complaining of abdominal discomfort with distention but denies any more nausea and/or vomiting denies any significant abdominal pain and wants to have food 06/17/2024 Patient was seen and examined in medical telemetry unit in presence of He has been feeling a little better and denies any abdominal pain and/or distention. He did not have any more nausea and vomiting and has been moving his bowels Review of Systems Review of Systems: All systems reviewed and are unremarkable except as noted below Physical Exam Physical Exam: Lying in bed without any acute distress Constitutional: well developed, well nourished, + ill appearing and + obese Eyes: PERRL, conjunctivae normal, anicteric sclerae ENMT: external ear and nose normal, oropharynx normal Neck: trachea midline, no thyromegaly Respiratory: no respiratory distress Auscultation: lungs clear to auscult ation bilaterally Cardiovascular: Rate/Rhythm: regular rate and regular rhythm; not tachycardic Heart Sounds: normal S1 and normal S2; no murmur Extremities: no edema Gastrointestinal (Abdomen): Inspection/Auscultation: + abdomen distended; + abnormal bowel sounds Percussion/Palpation: + abdomen tender ( mildly tender all over) and abdomen soft Neurologic: normal touch/pain/proprioception and moves all extremities; no focal motor deficits Lymphatic: no cervical or axillary lymphadenopathy Results & Data Results & Data Vital Signs (Past 12 Hours) Vital Signs Temp Pulse Resp BP BP Pulse Ox O2 Del Method 06/17/24 15:30 36.6 C 70 18 113/64 95 Room Air 06/17/24 11:59 36.9 C 77 18 120/65 97 Room Air 06/17/24 07:40 36.5 C 82 18 151/79 H 95 Room Air 06/17/24 07:25 Room Air Laboratory Results Short CBC 06/17/24 Range/Units 05:25 WBC 6.59 (4.8-10.8) K/ul Hgb 11.5 L (14.0-18.0) g/dl Hct 35.3 L (42.0-52.0) % Plt Count 146 (130-400) K/uL [facility] 06/17/24 05:29 Sodium 140 Potassium 3.8 Chloride 111 H Carbon Dioxide 24 BUN 18 Creatinine 1.43 H Glucose 83 Calcium 7.9 L Medications Administered Current Inpatient Medications Acetaminophen (Acetaminophen 325 Mg Tab) 650 mg PO Q4H PRN PRN Reason: Pain or Fever Stop: 07/15/24 11:50 Pantoprazole Sodium 40 mg/ (Dextrose) 100 mls @ 20 mls/hr IV Q5H [facility] Stop: 07/15/24 09:29 Last Admin: 06/17/24 13:51 Dose: 8 mg/hr, 20 mls/hr Levetiracetam (Levetiracetam 250 Mg Tab) 750 mg PO Q12H [facility] Stop: 07/15/24 22:59 Last Admin: 06/17/24 10:26 Dose: 750 mg Metoprolol Succinate (Metoprolol Succ 50mg Ext Rel Tab) 50 mg PO QPM [facility] Stop: 07/15/24 20:59 Last Admin: 06/16/24 21:23 Dose: 50 mg Quetiapine Fumarate (Quetiapine Fumarate 300 Mg Tablet) 300 mg PO HS [facility] Stop: 07/15/24 20:59 Last Admin: 06/16/24 21:23 Dose: 300 mg
[2024-06-17] MEDS: PANTOprazole 40 MG/10 ML SYR IV SCH (21:46)
[2024-06-18 06:16] LABS: Basophils # (auto) 0.04 K/uL (0.00-0.20); Basophils % (auto) 0.5 %; Eosinophils # (auto) 0.43 K/uL (0.00-0.50); Eosinophils % (auto) 4.9 %; Hematocrit (blood only) 35.5 % (42.0-52.0); Immature Granulocytes % (auto) 1.1 %; Lymphocytes # (auto) 0.83 K/uL (1.20-3.40); Lymphocytes % (auto) 9.5 %; Mean Corpuscular Hemoglobin 28.7 pg (25.0-34.0); Mean Corpuscular Hgb Conc 33.8 g/dL (32.0-36.0); Mean Corpuscular Volume 84.9 fL (80.0-100.0); Mean Platelet Volume 10.1 fL (9.4-12.4); Monocytes # (auto) 0.49 K/uL (0.11-0.59); Monocytes % (auto) 5.6 %; Neutrophils # (auto) 6.88 K/uL (1.40-6.50); Neutrophils % (auto) 78.4 %; Platelet Count 141 K/uL (130-400); RDW Coefficient of Variation 12.6 % (11.5-14.5); RDW Standard Deviation 38.5 fL (36.4-46.3); Red Blood Count 4.18 M/uL (4.70-6.10); White Blood Count 8.77 K/ul (4.8-10.8)
[2024-06-18 06:32] LABS: BUN Creatinine Ratio 10.1 (10-20); Calcium 8.2 mg/dl (8.6-10.3); Creatinine Clr Calc Pharmacy 53.6 ml/min; Potassium 3.8 mmol/L (3.5-5.1)
[2024-06-18 06:39] LABS: INR 2.1 (0.9-1.1); Prothrombin Time 21.4 Seconds (9.0-12.0)
--- NOTE | 2024-06-18 13:13 | XRay Report ---
KUB CLINICAL HISTORY: Small bowel obstruction. COMPARISON STUDY: CT of the abdomen and pelvis June 15, 2024. KUB June 17, 2024. FINDINGS: Multiple loops of mildly dilated small bowel are noted. Small bowel dilatation has slightly improved since prior exam. There are cholecystectomy clips. There is no evidence for free air on sup ine exam. IMPRESSION: Multiple loops of mildly dilated small bowel, slightly improved since prior exam. The fi ndings suggest a persistent but improving small bowel obstruction. ACT 112: Negative or not required by law. Electronically signed by: Amado Harrington M.D. 06/18/2024 1:12 PM
--- NOTE | 2024-06-18 13:36 | Surgery Progress Note ---
Date of Service June 18, 2024 Assessment & Plan (1) Ileus: Plan: Per clinical evaluation, ileus is resolving. I reviewed the abdominal x-ray performed late this morning which also appears to be improved. May advance to low fiber diet with what ever other dietary restrictions necessary per medicine. Slowly re-incorporate fiber to return to patient's baseline. Encourage aggressive ambulation with assistance. Will continue to follow for now. Admission and Anticipated Discharge Date Admission Date: June 15, 2024 Subjective Patient was seen and examined. At the time of my evaluation the patient was sitting up in a chair, his at bedside. Patient denies abdominal pain, nausea or vomiting. He admits to passing occasional flatus and had wet BM. He now has been tolerating full liquids. Physical Exam Constitutional: not in distress and not diaphoretic Afebrile Respiratory: normal respiratory effort; no respiratory distress, no labored breathing and does not use accessory muscles Gastrointestinal (Abdomen): Protuberant abdomen, soft, nontender to palpation. Results & Data Vital Signs (Past 12 Hours) Vital Signs Temp Pulse Pulse Resp BP BP Pulse Ox 06/18/24 11:26 36.7 C 69 20 156/82 H 95 06/18/24 08:00 68 06/18/24 07:47 06/18/24 07:34 36.3 C L 65 16 128/75 96 06/18/24 03:42 36.4 C L 75 20 130/77 98 O2 Del Method 06/18/24 11:26 Room Air 06/18/24 08:00 06/18/24 07:47 Room Air 06/18/24 07:34 Room Air 06/18/24 03:42 Room Air PG Care Time/CCT Total # of Minutes Spent Total Time Spent with Patient: Total time spent is greater than 50% in coordination of care (as documented) at patient's floor/unit and/or counseling patient: Coding Level of Care Code 69622 SUB INP/OBS CARE 07/09MIN Diagnoses Ileus K56.7
--- NOTE | 2024-06-18 13:40 | Hospitalist Progress Note ---
Date of Service June 18, 2024 Assessment & Plan (1) Hematemesis: Plan: Reported to have hematemesis but in fact he does emesis No more nausea and/or vomiting (2) Adynamic ileus: Plan: Small bowel obstruction as of recent x-ray findings and CT of the abdomen pelvis report Appreciate surgery input and recommendation Will keep him n.p.o. and intravenous fluid replacement CT with Moderate dilation of the proximal small bowel with a few air-fluid levels, no transitional point was noted, likely due to adynamic ileus PPI drip IVF and will replace electrolytes and monitor intake output Bowel Rest Appreciate surgery input and recommendation Appreciate GI input and recommendation Repeat KUB did not show an obstruction but did show IBS His electrolytes were replaced and his diet was elevated to full liquid If his condition is better will advance the diet to solid tomorrow and may be going home in the afternoon of 06/18/2024. 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 White is a 74 year old gentleman with medical history of persistent a fib, aortic dissection s/p root and valve repair, chronic anticoagulation iso mechanical valve, complex partial seizures, BPH admitted for reports of hematemesis and ileus. 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 further evaluation with contrast CT is suggested if clinically warranted. DVT ppx held iso supratherapeutic INR and c/f ?hematemesis Full code Med Tele Admission and Anticipated Discharge Date Admission Date: June 15, 2024 Subjective 06/16/2024 The patient was seen and examined in medical telemetry unit He has been complaining of abdominal discomfort with distention but denies any more nausea and/or vomiting denies any significant abdominal pain and wants to have food 06/17/2024 Patient was seen and examined in medical telemetry unit in presence of He has been feeling a little better and denies any abdominal pain and/or distention. He did not have any more nausea and vomiting and has been moving his bowels 06/18/2024 Patient was seen and examined in medical telemetry unit in presence of the He has been tolerating liquid diet without any problem Repeat KUB showed improvement of ileus but is still needs further improvement Will advise more ambulation and likely advance diet to solid tomorrow and discharge tomorrow Review of Systems Review of Systems: All systems reviewed and are unremarkable except as noted below Physical Exam Physical Exam: Lying in bed without any acute distress Constitutional: well developed, well nourished, + ill appearing and + obese Eyes: PERRL, conjunctivae normal, anicteric sclerae ENMT: external ear and nose normal, oropharynx normal Neck: trachea midline, no thyromegaly Respiratory: no respiratory distress Auscultation: lungs clear to auscultation bilaterally Cardiovascular: Rate/Rhythm: regular rate and regular rhythm; not tachycardic Heart Sounds: normal S1 and normal S2; no murmur Extremities: no edema Gastrointestinal (Abdomen): Inspection/Auscultation: + abdomen distended; + abnormal bowel sounds Percussion/Palpation: + abdomen tender ( mildly tender all over) and abdomen soft Neurologic: normal touch/pain/proprioception and moves all extremities; no focal motor deficits Lymphatic: no cervical or axillary lymphadenopathy Results & Data Results & Data Vital Signs (Past 12 Hours) Vital Signs Temp Pulse Pulse Resp BP BP Pulse Ox 06/18/24 11:26 36.7 C 69 20 156/82 H 95 06/18/24 08:00 68 06/18/24 07:47 06/18/24 07:34 36.3 C L 65 16 128/75 96 06/18/24 03:42 36.4 C L 75 20 130/77 98 O2 Del Method 06/18/24 11:26 Room Air 06/18/24 08:00 06/18/24 07:47 Room Air 06/18/24 07:34 Room Air 06/18/24 03:42 Room Air Laboratory Results Short CBC 06/18/24 Range/Units 05:31 WBC 8.77 (4.8-10.8) K/ul Hgb 12.0 L (14.0-18.0) g/dl Hct 35.5 L (42.0-52.0) % Plt Count 141 (130-400) K/uL BMP 06/18/24 05:31 Sodium 140 Potassium 3.8 Chloride 108 H Carbon Dioxide 25 BUN 14 Creatinine 1.39 Glucose 78 Calcium 8.2 L Medications Administered Current Inpatient Medications Acetaminophen (Acetaminophen 325 Mg Tab) 650 mg PO Q4H PRN PRN Reason: Pain or Fever Stop: 07/15/24 11:50 Pantoprazole Sodium (Protonix) 40 mg in 10 mls @ 5 mls/min IV BID [facility]AC[facility]I Stop: 07/17/24 20:59 Last Admin: 06/18/24 08:15 Dose: 5 mls/min Levetiracetam (Levetiracetam 250 Mg Tab) 750 mg PO Q12H [facility] Stop: 07/15/24 22:59 Last Admin: 06/18/24 11:26 Dose: 750 mg Metoprolol Succinate (Metoprolol Succ 50mg Ext Rel Tab) 50 mg PO QPM [facility] Stop: 07/15/24 20:59 Last Admin: 06/17/24 20:23 Dose: 50 mg Quetiapine Fumarate (Quetiapine Fumarate 300 Mg Tablet) 300 mg PO HS [facility]ACEL[facility] Stop: 07/15/24 20:59 Last Admin: 06/17/24 20:23 Dose: 300 mg
[2024-06-18] MEDS: WARFARIN SOD 2.5 MG TAB PO SCH (16:20)
[2024-06-18] MEDS: FINASTERIDE 5 MG TAB PO SCH (20:31)
--- NOTE | 2024-06-19 05:30 | Surgery Progress Note ---
<Statement entered by Shivam Latham, - 06/19/24 12:37> I have seen and examined this patient this am. Later in the am, the patient developed SOB, wheezing, sinus and chest congestion. He admits to having a liquid BM but no flatus. He continues to deny any abdominal symptoms and his KUB today shows persistent dilated bowel with some loops more similar to the day before yesterday. His abdomen remains completely benign as previously stated. Consider CXR Nebulizer treatment Electrolyte repletion as needed Continue ambulation as tolerated Do not advance diet until more definitive return of bowel function. Date of Service June 19, 2024 Assessment & Plan (1) Ileus: Plan: Patient has been admitted on the hospitalist service. From surgery perspective we recommend the following: KUB on 06/18/2024 showed improvement Continue diet as tolerated Encourage ambulation Check a.m. labs when available Admission and Anticipated Discharge Date Admission Date: June 15, 2024 Subjective Patient is currently sitting in bedside chair resting comfortably. He notes over the past 24 hours he has had a bowel movement. He denies any nausea or vomiting. He denies any abdominal pain. He has thus far tolerated full liquid diet without any exacerbation of abdominal pain Physical Exam Gastrointestinal (Abdomen): Abdomen is soft with minimal distention. There is no pain with palpation Results & Data Vital Signs (Past 12 Hours) Vital Signs Temp Pulse Pulse Resp BP BP Pulse Ox 06/19/24 03:37 36.3 C L 87 20 154/88 H 94 06/18/24 23:44 36.4 C L 101 H 20 138/79 95 06/18/24 23:18 06/18/24 23:10 105 H 06/18/24 20:09 36.3 C L 79 20 165/103 H 96 O2 Del Method 06/19/24 03:37 Room Air 06/18/24 23:44 Room Air 06/18/24 23:18 Room Air 06/18/24 23:10 06/18/24 20:09 Room Air PG Care Time/CCT Total # of Minutes Spent Total Time Spent with Patient: Total time spent is greater than 50% in coordination of care (as documented) at patient's floor/unit and/or counseling patient: Coding Level of Care Code 81747 SUB INP/OBS CARE 07/09MIN Diagnoses Ileus K56.7
[2024-06-19 06:45] LABS: Basophils # (auto) 0.03 K/uL (0.00-0.20); Basophils % (auto) 0.3 %; Eosinophils # (auto) 0.31 K/uL (0.00-0.50); Eosinophils % (auto) 2.9 %; Hematocrit (blood only) 38.4 % (42.0-52.0); Hemoglobin 12.9 g/dl (14.0-18.0); Immature Granulocytes # (auto) 0.13 K/uL (0.01-0.20); Immature Granulocytes % (auto) 1.2 %; Lymphocytes # (auto) 0.37 K/uL (1.20-3.40); Lymphocytes % (auto) 3.5 %; Mean Corpuscular Hemoglobin 28.7 pg (25.0-34.0); Mean Corpuscular Hgb Conc 33.6 g/dL (32.0-36.0); Mean Corpuscular Volume 85.5 fL (80.0-100.0); Mean Platelet Volume 10.1 fL (9.4-12.4); Monocytes # (auto) 0.48 K/uL (0.11-0.59); Monocytes % (auto) 4.5 %; Neutrophils # (auto) 9.32 K/uL (1.40-6.50); Neutrophils % (auto) 87.6 %; Platelet Count 168 K/uL (130-400); RDW Coefficient of Variation 12.7 % (11.5-14.5); RDW Standard Deviation 39.3 fL (36.4-46.3); Red Blood Count 4.49 M/uL (4.70-6.10); White Blood Count 10.64 K/ul (4.8-10.8)
[2024-06-19 07:04] LABS: BUN Creatinine Ratio 9.8 (10-20); Calcium 8.8 mg/dl (8.6-10.3); Creatinine Clr Calc Pharmacy 60.5 ml/min; Magnesium 1.8 mg/dl (1.7-2.4); Potassium 3.5 mmol/L (3.5-5.1)
[2024-06-19 07:05] LABS: INR 2.5 (0.9-1.1); Prothrombin Time 25.1 Seconds (9.0-12.0)
[2024-06-19] MEDS: TAMSULOSIN HCL 0.4 MG CAP PO SCH (08:09)
--- NOTE | 2024-06-19 10:29 | XRay Report ---
KUB CLINICAL HISTORY: Small bowel obstruction. COMPARISON STUDY: CT of the abdomen and pelvis June 15, 2024 and KUB June 18, 2024. FINDINGS: Status post cholecystectomy. Several loops of dilated bowel similar to prior exam measuring up to 5.2 cm in caliber. There is no evidence for free air on supine exam. IMPRESSION: Findings consistent with a persistent partial small bowel obstruction. ACT 112: Negative or not required by law. Electronically signed by: Amado Harrington M.D. 06/19/2024 10:28 AM
[2024-06-19] MEDS: POTASSIUM CHLORIDE / WTR 10 MEQ/100 ML PLCT IV SCH (12:29)
[2024-06-19] MEDS: guaiFENesin/DEXTROM SYRUP 200MG/20MG 10ML UDC PO PRN (12:31)
--- NOTE | 2024-06-19 13:08 | Hospitalist Progress Note ---
Date of Service June 19, 2024 Assessment & Plan (1) Hematemesis: Plan: Reported to have hematemesis but in fact he does emesis No more nausea and/or vomiting (2) Adynamic ileus: Plan: Small bowel obstruction as of recent x-ray findings and CT of the abdomen pelvis report Appreciate surgery input and recommendation Will keep him n.p.o. and intravenous fluid replacement CT with Moderate dilation of the proximal small bowel with a few air-fluid levels, no transitional point was noted, likely due to adynamic ileus PPI drip IVF and will replace electrolytes and monitor intake output Bowel Rest Appreciate surgery input and recommendation Appreciate GI input and recommendation Repeat KUB did not show an obstruction but did show IBS His electrolytes were replaced and his diet was elevated to full liquid If his condition is better will advance the diet to solid tomorrow and may be going home in the afternoon of 06/18/2024. 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 White is a 74 year old gentleman with medical history of persistent a fib, aortic dissection s/p root and valve repair, chronic anticoagulation iso mechanical valve, complex partial seizures, BPH admitted for reports of hematemesis and ileus. 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 further evaluation with contrast CT is suggested if clinically warranted. DVT ppx held iso supratherapeutic INR and c/f ?hematemesis Full code Med Tele Discussed with the Admission and Anticipated Discharge Date Admission Date: June 15, 2024 Subjective 06/16/2024 The patient was seen and examined in medical telemetry unit He has been complaining of abdominal discomfort with distention but denies any more nausea and/or vomiting denies any significant abdominal pain and wants to have food 06/17/2024 Patient was seen and examined in medical telemetry unit in presence of He has been feeling a little better and denies any abdominal pain and/or distention. He did not have any more nausea and vomiting and has been moving his bowels 06/18/2024 Patient was seen and examined in medical telemetry unit in presence of the He has been tolerating liquid diet without any problem Repeat KUB showed improvement of ileus but is still needs further improvement Will advise more ambulation and likely advance diet to solid tomorrow and discharge tomorrow 06/19/2024 The patient was seen and examined in medical telemetry unit He has been having more abdominal distention without nausea and/or vomiting Has cough with some wheezing KUB showed persistence of ileitis Review of Systems Review of Systems: All systems reviewed and are unremarkable except as noted below Physical Exam Physical Exam: Lying in bed without any acute distress Constitutional: well developed, well nourished, + ill appearing and + obese Eyes: PERRL, conjunctivae normal, anicteric sclerae ENMT: external ear and nose normal, oropharynx normal Neck: trachea midline, no thyromegaly Respiratory: no respiratory distress Auscultation: lungs clear to auscultation bilaterally Cardiovascular: Rate/Rhythm: regular rate and regular rhythm; not tachycardic Heart Sounds: normal S1 and normal S2; no murmur Extremities: no edema Gastrointestinal (Abdomen): Inspection/Auscultation: + abdomen distended; + abnormal bowel sounds Percussion/Palpation: + abdomen tender ( mildly tender all over) and abdomen soft Musculoskeletal: No acute arthritis involving any of the joint Neurologic: normal touch/pain/proprioception and moves all extremities; no focal motor deficits Lymphatic: no cervical or axillary lymphadenopathy Results & Data Results & Data Vital Signs (Past 12 Hours) Vital Signs Temp Pulse Pulse Resp BP BP Pulse Ox 06/19/24 11:56 36.4 C L 73 16 162/88 H 96 06/19/24 08:40 06/19/24 07:30 36.4 C L 87 16 175/81 H 95 06/19/24 07:24 97 H 06/19/24 03:37 36.3 C L 87 20 154/88 H 94 O2 Del Method 06/19/24 11:56 Room Air 06/19/24 08:40 Room Air 06/19/24 07:30 Room Air 06/19/24 07:24 06/19/24 03:37 Room Air Laboratory Results Short CBC 06/19/24 Range/Units 06:18 WBC 10.64 (4.8-10.8) K/ul Hgb 12.9 L (14.0-18.0) g/dl Hct 38.4 L (42.0-52.0) % Plt Count 168 (130-400) K/uL BMP 06/19/24 06:18 Sodium 138 Potassium 3.5 Chloride 104 Carbon Dioxide 24 BUN 12 Creatinine 1.23 Glucose 104 H Calcium 8.8 Medications Administered Current Inpatient Medications Acetaminophen (Acetaminophen 325 Mg Tab) 650 mg PO Q4H PRN PRN Reason: Pain or Fever Stop: 07/15/24 11:50 Finasteride (Finasteride 5 Mg Tab) 5 mg PO QPM ARACELI Stop: 07/18/24 20:59 Last Admin: 06/18/24 20:31 Dose: 5 mg Guaifenesin/Dextromethorphan (Guaifenesin/Dextrom Syrup 200mg/20mg 10ml Udc) 10 ml PO Q6H PRN PRN Reason: Cough Stop: 07/19/24 12:11 Last Admin: 06/19/24 12:31 Dose: 10 ml Pantoprazole Sodium (Protonix) 40 mg in 10 mls @ 5 mls/min IV BID [facility] Stop: 07/17/24 20:59 Last Admin: 06/19/24 08:10 Dose: 5 mls/min Potassium Chloride (K Brent / Wtr) 10 meq in 100 mls @ 100 mls/hr IV Q1H ARACELI Stop: 06/19/24 14:29 Last Admin: 06/19/24 12:29 Dose: 100 mls/hr Levetiracetam (Levetiracetam 500 Mg Tab) 1,000 mg PO Q12H [facility] Stop: 07/19/24 20:59 Metoprolol Succinate (Metoprolol Succ 50mg Ext Rel Tab) 50 mg PO QPM [facility]ACELI Stop: 07/15/24 20:59 Last Admin: 06/18/24 20:24 Dose: 50 mg Quetiapine Fumarate (Quetiapine Fumarate 300 Mg Tablet) 300 mg PO HS ARACELI Stop: 07/15/24 20:59 Last Admin: 06/18/24 20:23 Dose: 300 mg Tamsulosin HCl (Tamsulosin Hcl 0.4 Mg Cap) 0.4 mg PO DAILY [facility] Stop: 07/19/24 08:59 Last Admin: 06/19/24 08:09 Dose: 0.4 mg Warfarin Sodium (Warfarin Sod 1.25 Mg Tab) 1.25 mg PO Tu@1600 [facility] Stop: 07/21/24 15:59 Warfarin Sodium (Warfarin Sod 2.5 Mg Tab) 2.5 mg PO [id number]@1600 [facility] Stop: 07/18/24 15:59 Last Admin: 06/18/24 16:20 Dose: 2.5 mg
--- NOTE | 2024-06-19 14:38 | XRay Report ---
Chest x-ray, 2 views History: chest pain Comparison: 06/16/2024 Technique: 2 views of the chest, PA and lateral Findings: The lungs are clear. The heart appears enlarged. Median sternotomy wires are in place. No pleural effusion or pneumothorax. The heart size appears normal. No bony or soft tissue abnormality. Degenerative changes of the thoracic spine. Impression: Normal chest x-ray Electronically signed by Kiko Calderon 06-19-2024 2:38 PM
[2024-06-19] MEDS: ACETAMINOPHEN 325 MG TAB PO PRN (15:57)
[2024-06-19] MEDS: PIPERACILLIN/TAZOBACTAM 4.5 GM/100 ML BAG IV SCH (17:31)
[2024-06-19] MEDS: FUROSEMIDE 40 MG/4 ML VIAL IV ONE (18:43)
[2024-06-19] MEDS: ALBUTEROL 0.083% NEBU SOLN 3 ML VIAL NEB PRN (19:56)
[2024-06-19] MEDS: levETIRAcetam 500 MG TAB PO SCH (21:11)
[2024-06-20] MEDS: FUROSEMIDE 40 MG/4 ML VIAL IV ONE (08:31)
[2024-06-20 10:09] LABS: Adenovirus PCR Not Detected (NotDetected); Bordetella parapertussis PCR Not Detected (NotDetected); Bordetella pertussis PCR Not Detected (NotDetected); Chlamydia pneumoniae PCR Not Detected (NotDetected); Coronavirus 229E PCR Not Detected (NotDetected); Coronavirus CoV-2 (COVID19)PCR Not Detected (NotDetected); Coronavirus HKU1 PCR Not Detected (NotDetected); Coronavirus NL63 PCR Not Detected (NotDetected); Coronavirus OC43PCR Not Detected (NotDetected); Human Metapneumovirus PCR Not Detected (NotDetected); Influenza A (H1 2009) PCR DETECTED (NotDetected); Influenza B PCR Not Detected (NotDetected); Mycoplasma pneumoniae PCR Not Detected (NotDetected); Parainfluenza Virus 1 PCR Not Detected (NotDetected); Parainfluenza Virus 2 PCR Not Detected (NotDetected); Parainfluenza Virus 3 PCR Not Detected (NotDetected); Parainfluenza Virus 4 PCR Not Detected (NotDetected); Respiratory Syncytial VirusPCR Not Detected (NotDetected); Rhinovirus/Enterovirus PCR Not Detected (NotDetected)
--- NOTE | 2024-06-20 11:10 | Surgery Progress Note ---
Date of Service June 20, 2024 Assessment & Plan (1) Acute upper GI bleed: Plan: still unclear what exactly is going on ok to try low fiber as he has no pain or nausea and bowels are moving. will continue to follow along for a day or 2 (2) Anticoagulation goal of INR 2.5 to 3.5: (3) Ileus: Admission and Anticipated Discharge Date Admission Date: June 15, 2024 Subjective pt seen. no pain. having diarrhea. hungry and would like some food Physical Exam Physical Exam: alert. nad abd:soft. nd. nt. Results & Data Vital Signs (Past 12 Hours) Vital Signs Temp Pulse Pulse Resp BP Pulse Ox O2 Del Method 06/20/24 08:16 106 H 18 91 Room Air 06/20/24 07:50 Room Air 06/20/24 07:23 36.5 C 108 H 18 146/79 H 95 Room Air 06/20/24 04:22 37.2 C 102 H 18 131/84 97 Nasal Cannula 06/19/24 23:30 37.2 C 111 H 18 104/58 L 96 Nasal Cannula O2 Flow Rate 06/20/24 08:16 06/20/24 07:50 06/20/24 07:23 06/20/24 04:22 2 06/19/24 23:30 2 PG Care Time/CCT Total # of Minutes Spent Total Time Spent with Patient: Total time spent is greater than 50% in coordination of care (as documented) at patient's floor/unit and/or counseling patient: Coding Level of Care Code 64555 SUB INP/OBS CARE 07/09MIN Diagnoses Acute upper GI bleed K92.2 Anticoagulation goal of INR 2.5 to 3.5 Z51.81; Z79.01 Ileus K56.7
[2024-06-20 11:20] LABS: Hematocrit (blood only) 36.3 % (42.0-52.0); Hemoglobin 12.5 g/dl (14.0-18.0); Mean Corpuscular Hemoglobin 28.2 pg (25.0-34.0); Mean Corpuscular Hgb Conc 34.4 g/dL (32.0-36.0); Mean Corpuscular Volume 81.8 fL (80.0-100.0); Mean Platelet Volume 10.3 fL (9.4-12.4); Platelet Count 166 K/uL (130-400); RDW Coefficient of Variation 12.8 % (11.5-14.5); RDW Standard Deviation 37.8 fL (36.4-46.3); Red Blood Count 4.44 M/uL (4.70-6.10); White Blood Count 9.15 K/ul (4.8-10.8)
[2024-06-20 11:30] LABS: BUN Creatinine Ratio 7.7 (10-20); Calcium 8.7 mg/dl (8.6-10.3); Creatinine Clr Calc Pharmacy 44.2 ml/min; Magnesium 1.5 mg/dl (1.7-2.4); Phosphorus 2.1 mg/dl (2.5-4.9); Potassium 3.2 mmol/L (3.5-5.1)
[2024-06-20 11:39] LABS: Basophils # (auto) 0.03 K/uL (0.00-0.20); Basophils % (auto) 0.3 %; Eosinophils # (auto) 0.01 K/uL (0.00-0.50); Eosinophils % (auto) 0.1 %; Immature Granulocytes # (auto) 0.11 K/uL (0.01-0.20); Immature Granulocytes % (auto) 1.2 %; Lymphocytes # (auto) 0.17 K/uL (1.20-3.40); Lymphocytes % (auto) 1.9 %; Monocytes # (auto) 0.53 K/uL (0.11-0.59); Monocytes % (auto) 5.8 %; Neutrophils % (auto) 90.7 %
[2024-06-20] MEDS: OSELTAMIVIR PHOSPHATE 75 MG CAP PO SCH (11:56)
[2024-06-20] MEDS ORDERED: POTASSIUM PHOS 3 MMOL/1 ML INFUSION IV STA (11:59)
[2024-06-20] MEDS: POTASSIUM PHOSPHATE 21 MMOL in SODIUM CHLORIDE 0.9% 500 ML IV ONE (12:49)
[2024-06-20] MEDS: MAGNESIUM SULFATE / D5W 1 GM/100 ML BAG IV ONE (12:59)
[2024-06-20] MEDS ORDERED: Nursing to Pharmacy Communication SCH (13:00)
--- NOTE | 2024-06-20 13:02 | Hospitalist Progress Note ---
Date of Service June 20, 2024 Assessment & Plan (1) Hematemesis: Plan: Reported to have hematemesis but in fact he does emesis No more nausea and/or vomiting (2) Adynamic ileus: Plan: Small bowel obstruction as of recent x-ray findings and CT of the abdomen pelvis report Appreciate surgery input and recommendation Will keep him n.p.o. and intravenous fluid replacement CT with Moderate dilation of the proximal small bowel with a few air-fluid levels, no transitional point was noted, likely due to adynamic ileus PPI drip IVF and will replace electrolytes and monitor intake output Bowel Rest Appreciate surgery input and recommendation Appreciate GI input and recommendation Repeat KUB did not show an obstruction but did show IBS His electrolytes were replaced and his diet was elevated to full liquid If his condition is better will advance the diet to solid tomorrow and may be going home in the afternoon of 06/18/2024. Clinically much better with bowel movement and repeat KUB showed improvement of ileus but not yet resolved Will advise more ambulation and likely start solid food from tomorrow morning and discharged home in the afternoon KUB showed persistence of adynamic ileus Will continue with his liquid diet for now and potassium was supplemented which is borderline low Has been moving bowel and the bowel sounds remain soft without any abdominal dis tention Will continue with low fiber diet Influenza A Condition got worse with last pheresis and tachycardia and some wheezing with shortness of breath BioFire showed influenza A Isolation precautions placed and started with oral Tamiflu Electrolytes abnormality Noted to have hypo-Magnesemia, hypophosphatemia and also hypokalemia Could be the cause of adynamic ileus Supplementation is ongoing and will monitor (3) Anticoagulation goal of INR 2.5 to 3.5: Plan: INR is 2.3 today and restart Coumadin from this afternoon INR is therapeutic today (4) S/P AVR: Plan: #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 White is a 74 year old gentleman with medical history of persistent a fib, aortic dissection s/p root and valve repair, chronic anticoagulation iso mechanical valve, complex partial seizures, BPH admitted for reports of hematemesis and ileus. 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 further evaluation with contrast CT is suggested if clinically warranted. DVT ppx held iso supratherapeutic INR and c/f ?hematemesis Full code Med Tele Discussed with the 06/20/2024 Admission and Anticipated Discharge Date Admission Date: June 15, 2024 Subjective 06/16/2024 The patient was seen and examined in medical telemetry unit He has been complaining of abdominal discomfort with distention but denies any more nausea and/or vomiting denies any significant abdominal pain and wants to have food 06/17/2024 Patient was seen and examined in medical telemetry unit in presence of He has been feeling a little better and denies any abdominal pain and/or distention. He did not have any more nausea and vomiting and has been moving his bowels 06/18/2024 Patient was seen and examined in medical telemetry unit in presence of the He has been tolerating liquid diet without any problem Repeat KUB showed improvement of ileus but is still needs further improvement Will advise more ambulation and likely advance diet to solid tomorrow and discharge tomorrow 06/19/2024 The patient was seen and examined in medical telemetry unit He has been having more abdominal distention without nausea and/or vomiting Has cough with some wheezing KUB showed persistence of ileitis 06/20/2024 The patient was seen and examined in medical telemetry unit He has been worse today and the BioFire showed that he has influenza A Remains pleasantly confused and minimal distress due to overall condition Review of Systems Review of Systems: All systems reviewed and are unremarkable except as noted below Physical Exam Physical Exam: Lying in bed with respiratory and abdominal discomfort Constitutional: well developed, well nourished, + ill appearing and + obese Eyes: PERRL, conjunctivae normal, anicteric sclerae ENMT: external ear and nose normal, oropharynx normal Neck: trachea midline, no thyromegaly Respiratory: no respiratory distress Auscultation: lungs clear to auscultation bilaterally Cardiovascular: Rate/Rhythm: regular rate and regular rhythm; not tachycardic Heart Sounds: normal S1 and normal S2; no murmur Extremities: no edema Gastrointestinal (Abdomen): Inspection/Auscultation: + abdomen distended; + abnormal bowel sounds Percussion/Palpation: + abdomen tender ( mildly tender all over) and abdomen soft Neurologic: normal touch/pain/proprioception and moves all extremities; no focal motor deficits Lymphatic: no cervical or axillary lymphadenopathy Results & Data Results & Data Vital Signs (Past 12 Hours) Vital Signs Temp Pulse Pulse Resp BP Pulse Ox O2 Del Method 06/20/24 11:25 36.9 C 103 H 18 132/76 93 Room Air 06/20/24 08:16 106 H 18 91 Room Air 06/20/24 07:50 Room Air 06/20/24 07:23 36.5 C 108 H 18 146/79 H 95 Room Air 06/20/24 04:22 37.2 C 102 H 18 131/84 97 Nasal Cannula O2 Flow Rate 06/20/24 11:25 06/20/24 08:16 06/20/24 07:50 06/20/24 07:23 06/20/24 04:22 2 Laboratory Results Short CBC 06/20/24 Range/Units 10:15 WBC 9.15 (4.8-10.8) K/ul Hgb 12.5 L (14.0-18.0) g/dl Hct 36.3 L (42.0-52.0) % Plt Count 166 (130-400) K/uL BMP 06/20/24 10:15 Sodium 136 Potassium 3.2 L Chloride 98 Carbon Dioxide 25 BUN 13 Creatinine 1.68 H D Glucose 121 H Calcium 8.7 Medications Administered Current Inpatient Medications Acetaminophen (Acetaminophen 325 Mg Tab) 650 mg PO Q4H PRN PRN Reason: Pain or Fever Stop: 07/15/24 11:50 Last Admin: 06/19/24 15:57 Dose: 650 mg Albuterol (Albuterol 0.083% Nebu Soln 3 Ml Vial) 2.5 mg NEB Q6H PRN; Protocol PRN Reason: Shortness Of Breath Or Wheezing Stop: 07/19/24 18:34 Last Admin: 06/20/24 08:16 Dose: 2.5 mg Finasteride (Finasteride 5 Mg Tab) 5 mg PO QPM [facility] Stop: 07/18/24 20:59 Last Admin: 06/19/24 21:10 Dose: 5 mg Guaifenesin/Dextromethorphan (Guaifenesin/Dextrom Syrup 200mg/20mg 10ml Udc) 10 ml PO Q6H PRN PRN Reason: Cough Stop: 07/19/24 12:11 Last Admin: 06/19/24 19:56 Dose: 10 ml Pantoprazole Sodium (Protonix) 40 mg in 10 mls @ 5 mls/min IV BID [facility] Stop: 07/17/24 20:59 Last Admin: 06/20/24 08:39 Dose: 5 mls/min Piperacillin Sod/Tazobactam Sod (Zosyn) 4.5 gm in 100 mls @ 25 mls/hr IV Q8H [facility]; Protocol Stop: 06/21/24 16:59 Last Infusion: 06/20/24 12:00 Dose: 25 mls/hr Magnesium Sulfate/Dextrose (Magnesium Sulfate / D5w) 1 gm in 100 mls @ 50 mls/hr IV ONE ONE Stop: 06/20/24 13:58 Last Admin: 06/20/24 12:59 Dose: 50 mls/hr Potassium Phosphate 21 mmol/ (Sodium Chloride) 507 mls @ 88 mls/hr IV ONE ONE Stop: 06/20/24 18:00 Last Admin: 06/20/24 12:49 Dose: 88 mls/hr Levetiracetam (Levetiracetam 500 Mg Tab) 1,000 mg PO Q12H [facility] Stop: 07/19/24 20:59 Last Admin: 06/20/24 08:33 Dose: 1,000 mg Metoprolol Succinate (Metoprolol Succ 50mg Ext Rel Tab) 50 mg PO QPM [facility] Stop: 07/15/24 20:59 Last Admin: 06/19/24 21:10 Dose: 50 mg Miscellaneous Information (Nursing To Pharmacy Communication) 1 each N/A TODAY [facility] Stop: 07/20/24 12:59 Oseltamivir Phosphate (Oseltamivir Phosphate 75 Mg Cap) 75 mg PO BID [facility]; Protocol Stop: 06/25/24 10:29 Last Admin: 06/20/24 11:56 Dose: 75 mg Quetiapine Fumarate (Quetiapine Fumarate 300 Mg Tablet) 300 mg PO HS [facility] Stop: 07/15/24 20:59 Last Admin: 06/19/24 21:10 Dose: 300 mg Tamsulosin HCl (Tamsulosin Hcl 0.4 Mg Cap) 0.4 mg PO DAILY [facility] Stop: 07/19/24 08:59 Last Admin: 06/19/24 08:09 Dose: 0.4 mg Warfarin Sodium (Warfarin Sod 1.25 Mg Tab) 1.25 mg PO Tu@1600 [facility] Stop: 07/21/24 15:59 Warfarin Sodium (Warfarin Sod 2.5 Mg Tab) 2.5 mg PO SuMoWeThFrSa@1600 [facility] Stop: 07/18/24 15:59 Last Admin: 06/19/24 15:32 Dose: 2.5 mg
--- NOTE | 2024-06-21 08:02 | Surgery Progress Note ---
Date of Service June 21, 2024 Assessment & Plan (1) Ileus: Plan: abd soft , distended, non tender reports BM yesterday was advanced to low fiber , denies n/v, will see how he tolerates today VSS will follow along As above. Continues to improve. No abdominal pain or nausea. Tolerating some solid foods at this point. No indication for surgical intervention. We will sign off. Please call for any questions or concerns. Admission and Anticipated Discharge Date Admission Date: June 15, 2024 Subjective Pt denies abd pain, n/v is requesting mashed potatoes , diet was advanced yesterday , he does not think he was given "real food" believes he is only given clear liquids Reports he has been having BMs and had one yesterday 06/20 (no documented BM in chart since 06/15/24) Review of Systems Constitutional: no fever and no chills Respiratory: no dyspnea Cardiovascular: no chest pain Gastrointestinal: no abdominal pain, no nausea and no vomiting Physical Exam Constitutional: cooperative and comfortable; no acute distress Respiratory: normal respiratory effort; no respiratory distress Gastrointestinal (Abdomen): Inspection/Auscultation: + abdomen distended Percussion/Palpation: abdomen soft; abdomen nontender Results & Data Vital Signs (Past 12 Hours) Vital Signs Temp Pulse Resp BP BP Pulse Ox O2 Del Method 06/21/24 07:47 98.2 F 99 H 18 121/80 93 Room Air 06/21/24 03:55 97.9 F 101 H 18 101/61 94 Room Air 06/20/24 23:10 98.6 F 110 H 20 120/70 92 Room Air 06/20/24 22:03 Room Air PG Care Time/CCT Total # of Minutes Spent Total Time Spent with Patient: Total time spent is greater than 50% in coordination of care (as documented) at patient's floor/unit and/or counseling patient: Coding Level of Care Code 87134 SUB INP/OBS CARE 07/09MIN Diagnoses Ileus K56.7
[2024-06-21 08:52] LABS: BUN Creatinine Ratio 8.6 (10-20); Calcium 8.3 mg/dl (8.6-10.3); Creatinine Clr Calc Pharmacy 41.8 ml/min; Magnesium 1.8 mg/dl (1.7-2.4); Phosphorus 3.4 mg/dl (2.5-4.9); Potassium 2.9 mmol/L (3.5-5.1)
[2024-06-21] MEDS: POTASSIUM CHLORIDE / WTR 10 MEQ/100 ML PLCT IV SCH (09:36)
[2024-06-21 10:55] LABS: INR 4.7 (0.9-1.1); Prothrombin Time 44.6 Seconds (9.0-12.0)
[2024-06-21] MEDS: WARFARIN SOD 1.25 MG TAB PO SCH (11:28)
--- NOTE | 2024-06-21 14:30 | Hospitalist Progress Note ---
Date of Service June 21, 2024 Assessment & Plan (1) Hematemesis: Plan: Reported to have hematemesis but in fact he does emesis No more nausea and/or vomiting (2) Adynamic ileus: Plan: Small bowel obstruction as of recent x-ray findings and CT of the abdomen pelvis report Appreciate surgery input and recommendation Will keep him n.p.o. and intravenous fluid replacement CT with Moderate dilation of the proximal small bowel with a few air-fluid levels, no transitional point was noted, likely due to adynamic ileus PPI drip IVF and will replace electrolytes and monitor intake output Bowel Rest Appreciate surgery input and recommendation Appreciate GI input and recommendation Repeat KUB did not show an obstruction but did show IBS His electrolytes were replaced and his diet was elevated to full liquid If his condition is better will advance the diet to solid tomorrow and may be going home in the afternoon of 06/18/2024. Clinically much better with bowel movement and repeat KUB showed improvement of ileus but not yet resolved Will advise more ambulation and likely start solid food from tomorrow morning and discharged home in the afternoon KUB showed persistence of adynamic ileus Will continue with his liquid diet for now and potassium was supplemented which is borderline low Has been moving bowel and the bowel sounds remain soft without any abdominal dis tention Will continue with low fiber diet Remains stable and has been tolerating low fiber diet Advised to increase ambulation and continue with the physical therapy Influenza A Condition got worse with last pheresis and tachycardia and some wheezing with shortness of breath BioFire showed influenza A Isolation precautions placed and started with oral Tamiflu Symptoms of cough and wheezing and shortness of breath are improved Electrolytes abnormality Noted to have hypo-Magnesemia, hypophosphatemia and also hypokalemia Could be the cause of adynamic ileus Supplementation is ongoing and will monitor Potassium remains low at 2.9 and 30 mg IV potassium was administered Will monitor PRP (3) Anticoagulation goal of INR 2.5 to 3.5: Plan: INR is 2.3 today and restart Coumadin from this afternoon Monitor INR (4) S/P AVR: Plan: #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 White is a 74 year old gentleman with medical history of persistent a fib, aortic dissection s/p root and valve repair, chronic anticoagulation iso mechanical valve, complex partial seizures, BPH admitted for reports of hematemesis and ileus. #General weakness Orthostatic vital signs PT/OT reports dizziness upon standing, hold flomax #COPD as needed inhaler at home CTM #BPH #History of nephrolithiasis continue Proscar hold flomax given report of orthostasis #Partial complex seizure #Depression Continued on keppra 2000mg--IV while not able to tolerate po Seroquel 300mg qhs when able to take po monitor for agitation His Keppra was increased to 1000 mg twice daily as he takes 2000 mg daily #CKD Stable renal function at this time #Abnormal CT ab/p -follow up OP for Calcific intimal atheromas were noted in the mid-abdominal ao rta lumen. further evaluation with contrast CT is suggested if clinically warranted. DVT ppx held iso supratherapeutic INR and c/f ?hematemesis Full code Med Tele Discussed with the 06/20/2024 and on 06/21/2024 Likely discharge in a day or 2 Admission and Anticipated Discharge Date Admission Date: June 15, 2024 Subjective 06/16/2024 The patient was seen and examined in medical telemetry unit He has been complaining of abdominal discomfort with distention but denies any more nausea and/or vomiting denies any significant abdominal pain and wants to have food 06/17/2024 Patient was seen and examined in medical telemetry unit in presence of He has been feeling a little better and denies any abdominal pain and/or distention. He did not have any more nausea and vomiting and has been moving his bowels 06/18/2024 Patient was seen and examined in medical telemetry unit in presence of the He has been tolerating liquid diet without any problem Repeat KUB showed improvement of ileus but is still needs further improvement Will advise more ambulation and likely advance diet to solid tomorrow and discharge tomorrow 06/19/2024 The patient was seen and examined in medical telemetry unit He has been having more abdominal distention without nausea and/or vomiting Has cough with some wheezing KUB showed persistence of ileitis 06/20/2024 The patient was seen and examined in medical telemetry unit He has been worse today and the BioFire showed that he has influenza A Remains pleasantly confused and minimal distress due to overall condition 06/21/2024 The patient was seen and examined in medical telemetry unit He has been intubated today does not have significant cough and/or wheezing Abdomen is minimally distended, soft with slightly decreased bowel sound Has been tolerating low fiber diet and making out bowel movement Review of Systems Review of Systems: All systems reviewed and are unremarkable except as noted below Physical Exam Physical Exam: Sitting on a chair without any acute distress Constitutional: well developed, well nourished, + ill appearing and + obese Eyes: PERRL, conjunctivae normal, anicteric sclerae ENMT: external ear and nose normal, oropharynx normal Neck: trachea midline, no thyromegaly Respiratory: no respiratory distress Auscultation: + wheezes (Minimal wheezing bilaterally) Cardiovascular: Rate/Rhythm: regular rate and regular rhythm; not tachycardic Heart Sounds: normal S1 and normal S2; no murmur Extremities: no edema Gastrointestinal (Abdomen): Inspection/Auscultation: + abdomen distended; + abnormal bowel sounds Percussion/Palpation: + abdomen tender ( mildly tender all over) and abdomen soft Neurologic: normal touch/pain/proprioception and moves all extremities; no focal motor deficits Lymphatic: no cervical or axillary lymphadenopathy Results & Data Results & Data Vital Signs (Past 12 Hours) Vital Signs Temp Pulse Pulse Resp BP BP Pulse Ox 06/21/24 11:40 36.4 C L 103 H 18 121/77 92 06/21/24 10:13 97 H 90 15 06/21/24 09:30 06/21/24 07:47 36.8 C 99 H 18 121/80 93 06/21/24 03:55 36.6 C 101 H 18 101/61 94 O2 Del Method FiO2 06/21/24 11:40 Room Air 06/21/24 10:13 Room Air 21 06/21/24 09:30 Room Air 06/21/24 07:47 Room Air 06/21/24 03:55 Room Air Laboratory Results BMP 06/21/24 08:17 Sodium 137 Potassium 2.9 L Chloride 97 L Carbon Dioxide 32 BUN 15 Creatinine 1.74 H Glucose 117 H Calcium 8.3 L Medications Administered Current Inpatient Medications Acetaminophen (Acetaminophen 325 Mg Tab) 650 mg PO Q4H PRN PRN Reason: Pain or Fever Stop: 07/15/24 11:50 Last Admin: 06/19/24 15:57 Dose: 650 mg Albuterol (Albuterol 0.083% Nebu Soln 3 Ml Vial) 2.5 mg NEB Q6H PRN; Protocol PRN Reason: Shortness Of Breath Or Wheezing Stop: 07/19/24 18:34 Last Admin: 06/21/24 10:10 Dose: 2.5 mg Finasteride (Finasteride 5 Mg Tab) 5 mg PO QPM [facility] Stop: 07/18/24 20:59 Last Admin: 06/20/24 21:09 Dose: 5 mg Guaifenesin/Dextromethorphan (Guaifenesin/Dextrom Syrup 200mg/20mg 10ml Udc) 10 ml PO Q6H PRN PRN Reason: Cough Stop: 07/19/24 12:11 Last Admin: 06/21/24 06:32 Dose: 10 ml Pantoprazole Sodium (Protonix) 40 mg in 10 mls @ 5 mls/min IV BID [facility] Stop: 07/17/24 20:59 Last Admin: 06/21/24 09:51 Dose: 5 mls/min Piperacillin Sod/Tazobactam Sod (Zosyn) 4.5 gm in 100 mls @ 25 mls/hr IV Q8H [facility]; Protocol Stop: 06/21/24 16:59 Last Infusion: 06/21/24 13:33 Dose: Infused Levetiracetam (Levetiracetam 500 Mg Tab) 1,000 mg PO Q12H [facility] Stop: 07/19/24 20:59 Last Admin: 06/21/24 09:50 Dose: 1,000 mg Metoprolol Succinate (Metoprolol Succ 50mg Ext Rel Tab) 50 mg PO QPM [facility] Stop: 07/15/24 20:59 Last Admin: 06/20/24 21:09 Dose: 50 mg Oseltamivir Phosphate (Oseltamivir Phosphate 75 Mg Cap) 75 mg PO BID [facility]; Protocol Stop: 06/25/24 10:29 Last Admin: 06/21/24 09:50 Dose: 75 mg Quetiapine Fumarate (Quetiapine Fumarate 300 Mg Tablet) 300 mg PO HS [facility] Stop: 07/15/24 20:59 Last Admin: 06/20/24 21:08 Dose: 300 mg Tamsulosin HCl (Tamsulosin Hcl 0.4 Mg Cap) 0.4 mg PO DAILY [facility] Stop: 07/19/24 08:59 Last Admin: 06/21/24 09:50 Dose: 0.4 mg Warfarin Sodium (Warfarin Sod 1.25 Mg Tab) 1.25 mg PO Tu@1600 [facility] Stop: 07/21/24 15:59 Last Admin: 06/21/24 11:28 Dose: Not Given Warfarin Sodium (Warfarin Sod 2.5 Mg Tab) 2.5 mg PO SuMoWeThFrSa@1600 [facility] Stop: 07/18/24 15:59 Last Admin: 06/20/24 17:42 Dose: 2.5 mg
[2024-06-21] MEDS: OSELTAMIVIR PHOSPHATE SUSP 30 MG/5 ML UDP PO SCH (22:00)
[2024-06-22 00:51] VITALS: O2SAT 93
[2024-06-22 06:38] LABS: BUN Creatinine Ratio 10.4 (10-20); Calcium 8.6 mg/dl (8.6-10.3); Creatinine Clr Calc Pharmacy 54.7 ml/min; Magnesium 1.8 mg/dl (1.7-2.4); Phosphorus 2.6 mg/dl (2.5-4.9); Potassium 3.1 mmol/L (3.5-5.1)
[2024-06-22 06:53] LABS: INR 4.3 (0.9-1.1); Prothrombin Time 41.3 Seconds (9.0-12.0)
[2024-06-22 07:35] VITALS: RESP 18; TEMP 97.2
[2024-06-22] MEDS: POTASSIUM CHLORIDE CRTAB 20 MEQ TABCR PO STA (08:25)
[2024-06-22] MEDS ORDERED: bisacodyL 10 MG SUPP PR STA (11:12)
--- NOTE | 2024-06-22 11:29 | Discharge Summary ---
Discharge Summary Date of Service June 22, 2024 Principal Dx & Hospital Course #1 = Principal Diagnosis (1) Adynamic ileus: (2) Elevated INR: (3) Anticoagulation goal of INR 2.5 to 3.5: (4) HTN (hypertension): (5) Partial seizure disorder: Plan Patient is a 74-year-old gentleman presented to the emergency room with complaints of not having moved his bowels for a few days. Initial imaging was concerning for possible small bowel obstruction. Patient was cared for the hospital. Given IV fluid resuscitation as electrolytes were repleted. There was a question of possible hematemesis. On further history this was not d efinitively confirmed. GI consultation was obtained. Recommending PPI treatment. Patient also had elevated INR which was possible etiology for his bleeding. Surgical consultation was obtained as well. Patient did not need surgical intervention. Appears as though his adynamic ileus was slowly improving and his diet was advanced. Over the course of his hospitalization his hemoglobin remained stable. He tolerated advancing of his diet. Nursing reports that he did have some bowel movements. During his hospitalization patient also diagnosed with influenza A. Started on Tamiflu and symptomatic treatment. He did not require oxygen supplementation. He was continued on his usual outpatient seizure medications. With this illness patient came acutely deconditioned. Was evaluated by therapies. They recommended acute rehab. Case management was involved in the patient's care. They help coordinate discharge to [facility] for ongoing rehabilitation. The day of discharge patient was c omplaining of some upper airway congestion, he was tolerating his diet. Reported bowel movements within the past 24 hours. Understanding his need for ongoing therapy and agreeable to continue his rehabilitation at [facility]. Notes For Next Care Provider Check PT/INR on 06/23/2024 Resume warfarin when INR within therapeutic range with a goal INR of 2.5-3.5 Consider BMP in 5 to 7 days Medication Changes From Visit Protonix Keppra switched to twice daily Potassium replacement Tamiflu Warfarin on hold Admission HPI Per Admitting Provider Mr. White is a 74 year old gentleman with medical history of persistent a fib, aortic dissection s/p root and valve repair, chronic anticoagulation iso mechanical valve, complex partial seizures, BPH presented to [facility] ED due to hematemesis and abdominal bloat. Reports usually going to the bathroom daily, but states that he hasn't gone in may be 3-4 days. He states that he usually does go everyday, but cannot really remember when the last time was--he also notes he doesnt talk about his bm that often. He doesn't recall any recent flatus. He states Thursday he remembers "eating cake" and it not settling well, which then has prompted multiple days of vomiting after eating or drinking. Following with OP PT due to multiple mechanical falls due to dizziness which have been more frequent over the last year. In the ED, vitals were notable for BP of 120s SBP, HR of 105, and O2 sat of mid 90s on room air Imaging revealed adynamic ileus Labs stable ED interventions: Protonix bolus Consultants: GI Patient to be admitted to [facility] or further evaluation and management of ileus and ?hematemesis Admission Exam Per Admitting Provider See H&P Discharge Exam Constitutional: Alert, nontoxic HEENT: Mucous membranes moist. Lungs: Decreased breath sounds, some coarse upper airway rhonchi that clears with cough CV: S1-S2, regular Abdomen: Soft, nontender, nondistended, normal active bowel sounds Extremities: No significant edema Neuro: No focal deficits, generalized weakness Psych: Cooperative, normal mood Updated Medication List Medication Instructions Recorded Confirmed Type finasteride 5 mg tablet 5 mg PO QPM 03/25/21 06/15/24 History hydrochlorothiazide 25 mg tablet 25 mg PO [id number] PRN Fluid Retention 03/25/21 06/15/24 History levetiracetam 500 mg tablet 2,000 mg PO QPM 03/25/21 06/15/24 History tamsulosin 0.4 mg capsule 0.4 mg PO DAILY 03/25/21 06/15/24 History warfarin 2.5 mg tablet 1.25 mg PO WK 03/08/22 06/15/24 History metoprolol succinate 50 mg 50 mg PO QPM 02/26/24 06/15/24 History tablet,extended release 24 hr quetiapine 300 mg tablet 300 mg PO HS 02/26/24 06/15/24 History warfarin 2.5 mg tablet 2.5 mg PO [id number] 06/15/24 06/15/24 History dextromethorphan-guaifenesin 5 10 ml PO Q6H PRN cough/ congestion 06/22/24 Rx mg-100 mg/5 mL oral liquid #500 mL (Robitussin Cough-Chest Congestion DM) levetiracetam 500 mg tablet 1,000 mg (2 x 500 mg) PO Q12H #60 06/22/24 Rx (Keppra) tabs oseltamivir 6 mg/mL oral 30 mg (5 mL) PO BID #5 mL 06/22/24 Rx suspension (Tamiflu) pantoprazole 40 mg tablet,delayed 40 mg PO DAILY #30 tabs 06/22/24 Rx release (Protonix) potassium chloride 20 mEq 20 meq PO BID #4 tabs 06/22/24 Rx tablet,extended release(part/cryst) Hospital Stay Data Consultations 06/15/24 08:50 ED Decision to Admit Stat 06/16/24 07:32 Consult General Surgery Routine 06/16/24 08:14 Consult Gastroenterology Routine Diagnostic Imagining Performed 06/15/24 07:05 CT abd pelvis wo con Stat INR 4.3 Sodium 140 Potassium 3.1, received replacement prior to discharge Creatinine 1.35 Magnesium 1.8 Hemoglobin 12.5, remained stable throughout his hospitalization Reviewed imaging, laboratory and diagnostic studies. Pertinent findings as below. Pending Results Patient Have Any Pending Studies at Discharge: No Discharge Instructions Given to Patient (Per Discharging Provider) Continue with [facility] Monitor your [facility]R at [facility] Total Time Total Time Spent Total Time Spent (In Minutes): 34
[2024-06-22 11:32] VITALS: BP 101/61; PULSE 93
== END 2024-06-22 12:41 | DRG 389 ==
LOC: ED 06:44 → SUATTDRO 09:24 → EDINP 09:24 → 2N 11:51